=== PATIENT | female | born 1965 | race Caucasian/White ===

== ENCOUNTER 2020-10-28 04:20 | Outpatient (CLI) | payer MEDICARE, MEDICAID, SELFPAY ==
[2020-10-28 19:32] LABS: SARS-CoV-2 RNA PCR Negative
== END 2020-10-28 04:21 | disposition home or self-care (01) ==
LOC: ANHCOVIDDT 04:24
PROVIDERS: PCP Family Medicine; Visit Provider Internal Medicine Gastroenterology
DX: Z01.812 Encounter for preprocedural laboratory examination (principal); Z20.822 Contact with and (suspected) exposure to COVID-19
CPT/HCPCS: C9803; U0003

== ENCOUNTER 2020-11-01 01:24 | Day surgery (SDC) | payer MEDICARE, MEDICAID, SELFPAY ==
[2020-10-24 15:06] VITALS: BMI 41.0
[2020-11-01 09:20] VITALS: BP 143/111; PULSE 81; RESP 18; TEMP 36.3; O2SAT 100
[2020-11-01] MEDS: LACTATED RINGERS 1,000 ML 150 ML IV CONT (09:47)
--- NOTE | 2020-11-01 09:54 | WPDANESEPPF ---
Anes - Initial Pre Proc Eval Procedure: Operation Date: 11/01/20 10:30 Proposed Procedures p Screening Colonoscopy - Yimi Rai MD Date/Time: 11/01/20 09:54 Surgeon: Yimi Rai MD Pre Op Diagnosis: Neoplasm Screening Patient Data Age: 55 Gender: F Height: 5 ft 3 in Weight: 105 kg Last Vital Signs Temp 97.3 F L 11/01/20 09:20 Pulse 81 11/01/20 09:20 Resp 18 11/01/20 09:20 BP 143/111 H 11/01/20 09:20 Pulse Ox 100 11/01/20 09:20 Allergies Allergy/AdvReac Type Severity Reaction Status Date / Time No Known Allergies Allergy Verified 10/24/20 15:07 Home Medications Medication Instructions Recorded Confirmed Type omalizumab 150 mg/mL subcutaneous 150 mg SUBCUT .[id number] ml 08/23/20 10/24/20 History syringe valsartan 160 1 tablet PO DAILY #90 tablet 08/23/20 10/24/20 Rx mg-hydrochlorothiazide 25 mg tablet ipratropium 0.5 mg-albuterol 3 mg 3 ml INHALATION QID PRN #180 ml 08/30/20 10/24/20 Rx (2.5 mg base)/3 mL nebulization soln Suprep Bowel Prep Kit 17.5 354 ml PO .COMPLEX #354 ml NS 09/04/20 Rx gram-3.13 gram-1.6 gram oral solution Adult Probiotic 1 cap PO DAILY 10/24/20 10/24/20 History budesonide-formoterol 2 puff INHALATION BID 10/24/20 10/24/20 History levalbuterol tartrate [Xopenex HFA] 2 puff INHALATION Q6H 10/24/20 10/24/20 History multivitamin with minerals 1 tablet PO DAILY 10/24/20 10/24/20 History [Hair,Skin and Nails] multivitamin with minerals [ICaps] 1 tablet PO DAILY 10/24/20 10/24/20 History Patient hx anesthesia problems: none Family hx anesthesia problems: none PMFSH Past Medical History Medical History Allergic rhinitis, unspecified Asthma Essential (primary) hypertension Surgical History Surgical History H/O: hysterectomy (~2004) Hx of eye surgery (~2015) Family History Family History Sibling Asthma Social History Social History Smoking status: Never smoker Alcohol intake: never Substance use: never Substance use type: does not use Living arrangements: with family Spiritual care concerns: No Anes - Eval Final PreProcedure Day of Procedure 11/01/20 09:54 Patient weight: morbidly obese Heart: regular rate and rhythm Lungs: clear to auscultation Airway: Mallampati scale class III Neurological: alert and oriented Last oral intake: >/= 8 hours ASA classification: III Emergent: no Anesthetic plan: proceed Anesthesia type and monitoring: general GIVS and standard monitoring Informed Consent: The patient's anesthetic plan and its attendant risks and benefits were discussed with the patient/family/POA. Questions were solicited and answers provided to the satisfaction of the patient/family/POA.
--- NOTE | 2020-11-01 10:34 | PM.HPGS ---
History of Present Illness History of Present Illness Consent: Risks, benefits, and alternatives have been discussed and questions answered. Patient agrees to proceed with procedure. Chief complaint: Neoplasm Screening Narrative: Brandy Avila is a 55 year old female here for first screening colonoscopy Review of Systems Constitutional: Constitutional: Denies headache(s) and Denies weakness Eyes: Eyes: Denies blurry vision ENT: Reports Normal hearing present, Denies headache(s) and Denies neck pain Cardiovascular: Cardiovascular: Denies chest pain and Denies dyspnea Respiratory: Respiratory: Denies dyspnea Gastrointestinal: Gastrointestinal: Reports no additional gastrointestinal complaints Genitourinary: Genitourinary: Denies dysuria Musculoskeletal: Musculoskeletal: Denies neck pain Integumentary/Breasts: Skin/Breast: Denies dry skin Neurologic: Reports Normal hearing present, Denies headache(s) and Denies weakness Psychiatric: Psychiatric: Denies anxiety Endocrine: Endocrine: Denies change in body appearance Hematologic/Lymphatic: Hematologic/Lymphatic: Denies easy bleeding Allergic/Immunologic: Allergic/Immunologic: Denies urticaria PMFSH Past Medical History Medical History Allergic rhinitis, unspecified Asthma Essential (primary) hypertension Surgical History Surgical History H/O: hysterectomy (~2004) Hx of eye surgery (~2015) Family History Family History Sibling Asthma Social History Social History Smoking status: Never smoker Alcohol intake: never Substance use: never Substance use type: does not use Living arrangements: with family Spiritual care concerns: No Meds Home Medications and Allergies Home Medications Medication Instructions Recorded Confirmed Type omalizumab 150 mg/mL subcutaneous 150 mg SUBCUT .[id number] ml 08/23/20 10/24/20 History syringe valsartan 160 1 tablet PO DAILY #90 tablet 08/23/20 10/24/20 Rx mg-hydrochlorothiazide 25 mg tablet ipratropium 0.5 mg-albuterol 3 mg 3 ml INHALATION QID PRN #180 ml 08/30/20 10/24/20 Rx (2.5 mg base)/3 mL nebulization soln Suprep Bowel Prep Kit 17.5 354 ml PO .COMPLEX #354 ml NS 09/04/20 Rx gram-3.13 gram-1.6 gram oral solution Adult Probiotic 1 cap PO DAILY 10/24/20 10/24/20 History budesonide-formoterol 2 puff INHALATION BID 10/24/20 10/24/20 History levalbuterol tartrate [Xopenex HFA] 2 puff INHALATION Q6H 10/24/20 10/24/20 History multivitamin with minerals 1 tablet PO DAILY 10/24/20 10/24/20 History [Hair,Skin and Nails] multivitamin with minerals [ICaps] 1 tablet PO DAILY 10/24/20 10/24/20 History Allergies Allergy/AdvReac Type Severity Reaction Status Date / Time No Known Allergies Allergy Verified 10/24/20 15:07 Vital Signs Vital Signs - 24 hr 11/01/20 09:20 Temperature 97.3 F L Pulse Rate 81 Respiratory Rate 18 Blood Pressure 143/111 H Pulse Oximetry 100 Exam Const: General: comfortable and no acute distress HENMT: General nose exam: Normal nares present Eyes: General: appearance normal, both eyes and all related structures Neck: Neck: no JVD Resp: Auscultation: clear to auscultation bilaterally Cardio: Rate: regular rate Rhythm: regular rhythm GI: Inspection: non-distended GI Palp: Yes Soft to palpation Skin: General skin exam: normal color Neuro: General: gait normal Speech: normal speech Extrem: General: normal to inspection Psych: Mental Status: mental status grossly normal Assessment and Plan Assessment and plan (1) Colon cancer screening: Code(s): Z12.11 - Encounter for screening for malignant neoplasm of colon Status: Acute Assessment and Plan: will proceed with colonoscopy
[2020-11-01 10:56] VITALS: BP 171/98; PULSE 79; RESP 24; O2SAT 99
[2020-11-01 11:06] VITALS: BP 128/92; PULSE 74; RESP 21; O2SAT 99
[2020-11-01 11:16] VITALS: BP 169/99; PULSE 76; RESP 18; O2SAT 99
== END 2020-11-01 11:38 | disposition home or self-care (01) ==
PROVIDERS: PCP Family Medicine; Visit Provider Internal Medicine Gastroenterology
PROC: 0DJD8ZZ Inspection of Lower Intestinal Tract, Via Natural or Artificial Opening Endoscopic (ICD-10-PCS; CPT 45378; principal; 2020-11-01 10:30)
DX: Z12.11 Encounter for screening for malignant neoplasm of colon (principal); K57.30 Diverticulosis of large intestine without perforation or abscess without bleeding; K64.8 Other hemorrhoids; I10 Essential (primary) hypertension; J45.909 Unspecified asthma, uncomplicated; E66.01 Morbid (severe) obesity due to excess calories; Z68.41 Body mass index [BMI] 40.0-44.9, adult
CPT/HCPCS: G0121; C9803; J2001; J2704; J7120; U0003

== ENCOUNTER 2021-05-09 13:16 | Outpatient (CLI) | payer MEDICARE, MEDICAID, SELFPAY ==
--- NOTE | ~2021-05-09 | MM_ITS ---
EXAMINATION: MM screening chelsea BI w marcus HISTORY: Screening TECHNIQUE: Craniocaudal and mediolateral oblique 3-D tomosynthesis images were obtained and synthetic 2-D images were generated. CAD analysis was submitted and interpreted. COMPARISON: Comparison to multiple prior studies sequentially, with oldest reviewed study dated 12/29. BREAST PARENCHYMAL COMPOSITION: There are scattered areas of fibroglandular density. FINDINGS: There is no evidence of suspicious mass, calcification, or architectural distortion to sugg est malignancy in either breast. There has been no suspicious interval change. IMPRESSION: 1. No mammographic evidence of malignancy. 2. Recommend routine screening mammography in one year. BI-RADS Category 1: Negative Reviewed, dictated and finalized at location A.
== END 2021-05-09 13:17 | disposition home or self-care (01) ==
LOC: ANHIMG 13:19
PROVIDERS: PCP Family Medicine; Visit Provider Family Medicine
DX: Z12.31 Encounter for screening mammogram for malignant neoplasm of breast (principal)
CPT/HCPCS: 77063; 77067

== ENCOUNTER 2021-06-10 19:33 | Emergency (ER) | payer MEDICARE, MEDICAID, SELFPAY ==
[2021-06-10] VITALS (8 sets, daily range): BP systolic 119–147; BP diastolic 51–94; PULSE 73–92; RESP 15–23; TEMP 36.2; O2SAT 98–100
--- NOTE | ~2021-06-10 | XR_ITS ---
EXAMINATION: XR chest 1V portable DATE: 06/10/2021 20:46 INDICATION: Dizziness. TECHNIQUE: A single frontal view of the chest was obtained. COMPARISON: Chest 2 views 11/14/2009 FINDINGS: Calcified pulmonary nodules and calcified hilar lymph nodes are consistent with old granulo matous disease. No pleural effusion or pneumothorax. The heart size is normal. There is a large hiata l hernia. IMPRESSION: 1. Large hiatal hernia. Reviewed, dictated and finalized at location A. IMPRESSION: 1. Large hiatal hernia.
--- NOTE | 2021-06-10 19:52 | ECG_ITS ---
Measurements Intervals [place] Rate: 83 P: 52 RI: 145 QRS: 39 QRSD: 97 T: 6 QT: 390 QTc: 458 Interpretive Statements SINUS RHYTHM POOR R WAVE PROGRESSION, ANTERIOR LEADS BORDERLINE ST-T WAVE ABNORMALITY- INFERIOR LEADS BASELINE ARTIFACT- I, II, III, AVR, AVL, AVF, V1-V6 BORDERLINE ECG Electronically Signed On 06-10-2021 20:14:21 CDT by iPneda Nguyen D.O.
--- NOTE | 2021-06-10 19:58 | ED.DIZZY ---
HPI - Dizziness General Chief Complaint: Syncope Stated Complaint: dizziness x 2 days Time Seen by Provider: 06/10/21 19:58 History of Present Illness HPI Narrative: 55 yo female w/ h/o htn, asthma presents to the ED c/o dizziness. For the past 2-3 days she has had intermittent dizzy spells. Despite extensive questioning she is not able to provide very much information about these. She think that she may have lost consciousness once. History limited by extremely poor historian Related Data Home Medications Medication Instructions Recorded Confirmed Adult Probiotic 1 cap PO DAILY 10/24/20 03/07/21 budesonide-formoterol 2 puff INHALATION BID 10/24/20 03/07/21 multivitamin with minerals 1 tablet PO DAILY 10/24/20 03/07/21 [Hair,Skin and Nails] multivitamin with minerals [ICaps] 1 tablet PO DAILY 10/24/20 03/07/21 Allergies Allergy/AdvReac Type Severity Reaction Status Date / Time No Known Allergies Allergy Verified 06/10/21 19:45 Review of Systems Review of Systems: All systems reviewed & are unremarkable except as noted in HPI and below Constitutional: Constitutional: Reports fatigue and Denies fever(s) Eyes: Eyes: Reports no additional eye complaints ENT: Denies sore throat Cardiovascular: Cardiovascular: Denies chest pain Respiratory: Respiratory: Reports dyspnea Gastrointestinal: Gastrointestinal: Denies nausea Genitourinary: Genitourinary: Reports no additional female genitourinary complaints Neurologic: Reports dizziness, Reports syncope and Denies headache(s) [facility] Past Medical History Medical History Allergic rhinitis, unspecified Asthma Colon cancer screening Essential (primary) hypertension Surgical History Surgical History H/O: hysterectomy (~2004) Hx of eye surgery (~2015) Family History Family History Sibling Asthma Social History Social History Smoking status: Never smoker Alcohol intake: never Substance use: never Substance use type: does not use Gender identity (if verbalized by the patient): Female Spiritual care concerns: No Exam Const: General: no acute distress and alert Nutritional Appearance: obese Orientation/consciousness: patient oriented x3 HENMT: Head: normal to inspection Ears: Abnormal EAC present cerumen impaction Eyes: Conjunctivae: conjunctivae normal Pupils: Equal, round and reactive pupils present EOM: EOMs intact bilaterally Neck: Neck: normal visual inspection and no lymphadenopathy Resp: Effort & Inspection: normal respiratory effort and tachypneic Auscultation: clear to auscultation bilaterally and wheezes scattered wheezes Cardio: Jugular venous distension: no JVD Rate: regular rate Rhythm: regular rhythm GI: Inspection: non-distended GI Palp: Yes Soft to palpation and No Tenderness to palpation present (GI) Skin: General skin exam: normal color Neuro: General: patient oriented x3, moves all extremities and CN's II-XI intact bilaterally Speech: normal speech Extrem: General: normal to inspection and no edema Psych: Appearance: well kempt Affect: Anxious affect present Course Vital Signs Vital signs: Vital Signs Temperature 36.2 C L 06/10/21 19:45 Pulse Rate 81 06/10/21 19:45 Respiratory Rate 17 06/10/21 19:45 Blood Pressure 147/85 H 06/10/21 19:45 Pulse Oximetry 100 06/10/21 19:45 Temperature 36.2 C L 06/10/21 19:45 Pulse Rate 80 06/10/21 22:55 Respiratory Rate 22 H 06/10/21 22:55 Blood Pressure 128/51 L 06/10/21 22:55 Pulse Oximetry 98 06/10/21 22:55 MDM - Dizziness Differential Diagnosis Differential diagnosis: Likely benign paroxysmal positional vertigo, orthostatic hypotension and other (dehydration) Lab Data Attestation: I reviewed the patie
[2021-06-10] MEDS: MECLIZINE HCL 25 MG TABLET PO (20:45)
[2021-06-10] MEDS: SODIUM CHLORIDE 0.9% IV 1,000 ML 999 ML IV CONT (20:45)
[2021-06-10 20:51] LABS: Basophils Absolute Auto 0.1 K/mm3 (0.0-0.1); Eosinophils Absolute Auto 0.5 K/mm3 (0-0.3); Eosinophils Percent Auto 6.2 % (0-4.4); Hematocrit 38.4 % (37.0-47.0); Hemoglobin 12.6 g/dL (12.0-15.0); Immature Granulocyte Absolute 0.03 K/mm3 (0.00-0.031); Immature Granulocyte Percent A 0.4 % (0-0.5); Lymphocytes Absolute Auto 1.82 K/mm3 (0.9-3.2); Lymphocytes Percent Auto 25.2 % (18.3-44.2); Mean Corpuscular HGB Conc 32.8 g/dl (32-36); Mean Corpuscular Hemoglobin 30.8 pg (26-34); Mean Corpuscular Volume 93.9 fl (80-100); Mean Platelet Volume 11.6 fl (7.4-10.4); Monocytes Absolute Auto 0.8 K/mm3 (0.1-0.6); Monocytes Percent Auto 10.7 % (2.6-8.5); Neutrophils Absolute Auto 4.1 K/mm3 (1.3-6.7); Neutrophils Percent Auto 56.5 % (45.5-73.1); Platelet Count Result 223 k/mm3 (150-375); Red Blood Count 4.09 M/mm3 (4.2-5.4); Red Cell Distribution Width 12.8 % (11.5-14.5); White Blood Count 7.2 K/mm3 (4.5-10.0)
[2021-06-10 21:09] LABS: Anion Gap 8 mmol/L (8-16); Blood Urea Nitrogen 26 mg/dL (7-17); Carbon Dioxide 30 mmol/L (22-30); Chloride 102 mmol/L (98-107); Estimated CRCL calculation 111 ml/min; Estimated Glomerular Filt Rate > 60; Glucose 86 mg/dL (65-110); Potassium 4.2 mmol/L (3.4-5.0); Sodium 140 mmol/L (137-145)
[2021-06-10] MEDS: ALBUTEROL SULFATE NEB 2.5 MG/0.5 ML INH 5 MG INHALATION (21:46)
[2021-06-10] MEDS: IPRATROPIUM BR 0.02% INH SOLN 0.5 MG/2.5 ML VIAL INHALATION (21:46)
== END 2021-06-10 23:44 | disposition home or self-care (01) ==
PROVIDERS: Emergency Medicine; Emergency Provider Emergency Medicine; PCP Family Medicine
DX: R42 Dizziness and giddiness (principal); H61.21 Impacted cerumen, right ear; I10 Essential (primary) hypertension; J45.909 Unspecified asthma, uncomplicated
CPT/HCPCS: 36415; 71045; 80048; 85025; 93005; 94640; 96360; 99284; A9270; J7030

== ENCOUNTER 2022-03-14 14:59 | Outpatient (CLI) | payer MEDICARE, MEDICAID, SELFPAY ==
[2022-03-19 02:41] LABS: Immunoglobulin E 1069 kU/L (<=114)
== END 2022-03-14 15:00 | disposition home or self-care (01) ==
PROVIDERS: PCP Family Medicine; Visit Provider Nurse Practitioner Family
DX: D82.4 Hyperimmunoglobulin E [IgE] syndrome (principal)
CPT/HCPCS: 36415; 82785

== ENCOUNTER 2022-11-05 11:23 | Emergency (ER) | payer MEDICARE, MEDICAID, SELFPAY ==
[2022-11-05 11:23] VITALS: BP 144/84; PULSE 88; RESP 16; TEMP 36.6; O2SAT 98
--- NOTE | 2022-11-05 11:33 | ED.WOUNDLAC ---
HPI - Wound/Laceration General Chief Complaint: Wound/Laceration Stated Complaint: hand laceration Time Seen by Provider: 11/05/22 11:33 Source: patient and RN notes reviewed Mode of arrival: ambulatory Limitations: no limitations History of Present Illness HPI narrative: Patient states she that she was reaching inside of a box to get rid of some broken glass or dishes. She reached in and ended up slicing her left thumb. She sliced off some of the skin and there is no bili Diederich to pull the skin close enough together for repair. She is actively bleeding. She is holding pressure with a bandage. Onset (ago): minute(s) (20) Extremity Location: Left: hand (thumb) Place: home Patient tetanus UTD: No Context: accidental Associated symptoms: pain Treatments prior to arrival: bandage Related Data Home Medications Medication Instructions Recorded Confirmed Adult Probiotic 1 cap PO DAILY 10/24/20 11/05/22 multivitamin with minerals 1 tablet PO DAILY 10/24/20 11/05/22 (Hair,Skin and Nails tablet) Allergies Allergy/AdvReac Type Severity Reaction Status Date / Time No Known Allergies Allergy Verified 11/05/22 11:31 Review of Systems Review of Systems: All systems reviewed & are unremarkable except as noted in HPI and below PMFSH Past Medical History Medical History (Updated 11/05/22 @ 11:47 by Ben Fisher MD) Allergic rhinitis, unspecified Asthma Body mass index [BMI] 45.0-49.9, adult (01/07/19) Chronic obstructive pulmonary disease with (acute) exacerbation Essential (primary) hypertension History of intellectual disability Neuropathy of left foot Surgical History Surgical History H/O: hysterectomy (~2004) Hx of eye surgery (~2015) Right Family History Family History Sibling Asthma Social History Social History Smoking status: Never smoker Second hand tobacco smoke exposure: No Alcohol intake: never Substance use: never Substance use type: does not use Gender identity (if verbalized by the patient): Female Spiritual care concerns: No Exam Const: General: healthy appearing, no acute distress and alert Nutritional Appearance: well nourished and obese morbidly obese Orientation/consciousness: patient oriented x3 Limitations: no limitations HENMT: Head: normal to inspection Ears: external ears normal Face/Nose/Sinus: Normal external nose present Face and sinus: normal facial exam Mouth: Yes Normal oral and palatal mucosa present Eyes: Conjunctivae: conjunctivae normal Pupils: Equal, round and reactive pupils present EOM: EOMs intact bilaterally Neck: Neck: normal visual inspection Resp: Effort & Inspection: normal respiratory effort Auscultation: clear to auscultation bilaterally Cardio: Rate: regular rate Rhythm: regular rhythm GI: GI Palp: Yes Soft to palpation and No Tenderness to palpation present (GI) Auscultation: normal bowel sounds Back/Spine/Pelvis: Cervical Spine: cervical ROM normal Thoracic/Lumbar Spine: thoraco-lumbar ROM normal Skin: General skin exam: normal color Rashes: no rashes Wounds: wounds noted avulsion left lateral thumb size (4 cm X 2 cm elipse), bed beefy red, drainage bloody, margins poorly approximated and open Neuro: General: patient oriented x3, moves all extremities, no focal motor deficits and CN's II-XI intact bilaterally Speech: normal speech Gait exam (Neuro): Normal gait present Extrem: General: normal to inspection and no clubbing, cyanosis or edema Psych: Mental Status: mental status grossly normal Affect: normal affect Attitude: cooperative Course Course Emergency Course: There is no skin to sew back together as it is completely been sliced away. The wound is open bleeding. A tourniquet is used to stop the bleeding and then Surgicel is placed along with
[2022-11-05] MEDS: TETANUS,DIPHTHERIA,AC PERTUSSIS ADULT 0.5 ML (ADACEL) IM (11:39)
--- NOTE | 2022-11-05 12:20 | PC.NURSE ---
BLEEDING CONTROLLED POST SURGICEL AND DRESSING APPLICATION.
== END 2022-11-05 12:05 | disposition home or self-care (01) ==
PROVIDERS: Emergency Provider Emergency Medicine; PCP Family Medicine
DX: S61.412A Laceration without foreign body of left hand, initial encounter (principal); I10 Essential (primary) hypertension; J44.9 Chronic obstructive pulmonary disease, unspecified; Z23 Encounter for immunization; W25.XXXA Contact with sharp glass, initial encounter
CPT/HCPCS: 90471; 90715; 99282

== ENCOUNTER 2023-03-26 18:00 | Emergency (ER) | payer MEDICARE, MEDICAID, SELFPAY ==
--- NOTE | ~2023-03-26 | XR_ITS ---
EXAMINATION: XR chest 2V DATE: 03/26/2023 18:44 INDICATION: Cough and congestion TECHNIQUE: Frontal and lateral views of the chest are obtained COMPARISON: 06/10/2021 FINDINGS: The lungs are free of acute opacities. No pleural effusion or pneumothorax. The heart size is normal. There is a moderate-sized hiatal hernia. There is moderate thoracic spondylosis. IMPRESSION: 1. No acute cardiopulmonary abnormality. Reviewed, dictated and finalized at location F.
[2023-03-26 18:00] VITALS: BP 147/93; PULSE 79; RESP 22; TEMP 36.9; O2SAT 97
--- NOTE | 2023-03-26 18:18 | ED.GENADULT ---
HPI - General Adult General Chief complaint: Shortness of Breath/Dyspnea Stated complaint: cough and congestion Time Seen by Provider: 03/26/23 18:18 History of Present Illness HPI narrative: The patient is a 57-year-old woman with history of asthma, on inhalers but not on nebulizer treatments or oxygen. Hypertension. Never smoked. Mild electrical disability. Allergic rhinitis. Hyper IgE syndrome. Prior hysterectomy. For the last 3 days, the patient has had upper respiratory tract infection symptoms with increasing shortness of breath and wheezing. She has had a cough, nasal congestion, but no rhinorrhea. No fevers or chills or diaphoresis. No chest pain. No abdominal pain. No nausea or vomiting. No urinary symptoms. No sick contacts. She has used her inhalers without relief of her shortness of breath and wheezing. Related Data Allergies Allergy/AdvReac Type Severity Reaction Status Date / Time No Known Allergies Allergy Verified 03/26/23 18:29 Review of Systems Review of Systems: All systems reviewed & are unremarkable except as noted in HPI and below Constitutional: Constitutional: Denies chills, Denies excessive sweating, Denies fatigue, Denies fever(s), Denies headache(s) and Denies weakness Eyes: Eyes: Denies change in vision and Denies photophobia ENT: Denies dysphagia, Denies dizziness, Denies headache(s), Denies lip swelling, Reports nasal congestion, Denies sore throat and Denies tongue swelling Cardiovascular: Cardiovascular: Denies chest pain, Denies syncope, Denies rapid heart rate and Denies dyspnea Respiratory: Respiratory: Reports chest congestion, Reports cough, Reports dyspnea and Reports wheezing Gastrointestinal: Gastrointestinal: Denies abdominal pain, Denies constipation, Denies dysphagia, Denies diarrhea, Denies nausea and Denies vomiting Genitourinary: Genitourinary: Denies hematuria, Denies urinary frequency, Denies dysuria and Denies urinary urgency Musculoskeletal: Musculoskeletal: Denies back pain, Denies myalgias, Denies arthralgias, Denies joint swelling and Denies numbness Integumentary/Breasts: Skin/Breast: Denies pruritus, Denies erythema and Denies rash Neurologic: Denies confusion, Denies dizziness, Denies syncope, Denies headache(s), Denies focal weakness, Denies numbness and Denies weakness Psychiatric: Psychiatric: Denies anxiety and Denies confusion Endocrine: Endocrine: Denies excessive sweating and Denies fatigue Hematologic/Lymphatic: Hematologic/Lymphatic: Denies easy bleeding and Denies easy bruising Allergic/Immunologic: Allergic/Immunologic: Denies lip swelling, Denies tongue swelling and Denies wheezing PMFSH Past Medical History Medical History Allergic rhinitis, unspecified Asthma Body mass index [BMI] 45.0-49.9, adult (01/07/19) Chronic obstructive pulmonary disease with (acute) exacerbation Essential (primary) hypertension History of intellectual disability Neuropathy of left foot Surgical History Surgical History H/O: hysterectomy (~2004) Hx of eye surgery (~2015) Right Family History Family History Sibling Asthma Social History Social History Social History: Caffeine-daily Smoking status: Never smoker Second hand tobacco smoke exposure: No Alcohol intake: never Substance use: never Substance use type: does not use Lack of Transportation: No Lack of Food: Never True Current Housing: I Have Housing Concerned About Future Housing: No Difficulty Paying Gas/Electric Bills: No Difficulty Paying for Meds: No Currently Unemployed: No Education: High School Diploma/GED Difficulty w/ Childcare or Family Care: No Living arrangements: with family Gender identity (if verbalized by the patient): Female Spiritual
--- NOTE | 2023-03-26 18:23 | ECG_ITS ---
Measurements Intervals [place] Rate: 74 P: 75 NH: 145 QRS: 47 QRSD: 100 T: 48 QT: 402 QTc: 447 Interpretive Statements SINUS RHYTHM WITH OCCASIONAL ATRIAL PREMATURE COMPLEXES POOR R-WAVE PROGRESSION ABNORMAL ECG COMPARED TO ECG 06/10/2021 20:03:46 APCS ARE NOW SEEN Electronically Signed On 03-27-2023 16:24:12 CDT by Checo Jones M.D.
[2023-03-26] MEDS: IPRATROPIUM 0.5 MG/ALBUTEROL SULFATE 2.5 MG AMPUL.NEB 3 ML INHALATION ×2 (18:44→20:31)
[2023-03-26 18:49] VITALS: BP 137/88; PULSE 85; RESP 22; O2SAT 99
[2023-03-26 19:39] LABS: Influenza A QL RT-PCR Negative (Negative); Influenza B QL RT-PCR Negative (Negative); SARS-CoV-2 RNA PCR Negative (Negative)
[2023-03-26 19:40] LABS: RSV RNA, RT-PCR Negative (Negative); Strep Group A RT-PCR NOT DETECTED (Negative)
[2023-03-26 19:45] LABS: Hematocrit 29.2 % (35.0-49.0); Hemoglobin 8.7 g/dL (12.0-15.0); Mean Corpuscular HGB Conc 29.8 g/dL (32.0-36.0); Mean Corpuscular Hemoglobin 25.2 pg (27.0-31.0); Mean Corpuscular Volume 84.6 fL (78.0-102.0); Mean Platelet Volume 10.8 fl (9.2-11.8); Platelet Count Result 272 K/mm3 (150-420); Red Blood Count 3.45 M/mm3 (4.20-5.40); Red Cell Distribution Width 14.8 % (11.6-14.4); White Blood Count 5.6 K/mm3 (4.8-10.8)
[2023-03-26 20:02] LABS: Alanine Aminotransferase 18 U/L (14-59); Albumin Level 3.6 g/dL (3.4-5.0); Alkaline Phosphatase 78 U/L (46-116); Anion Gap 12 mmol/L (8-16); Aspartate Amino Transferase 21 U/L (15-37); Bilirubin,Total 0.2 mg/dL (0.00-1.00); Blood Urea Nitrogen 21 mg/dL (7-18); CRP 5.7 mg/dL (0.0-0.9); Calcium 8.7 mg/dL (8.5-10.1); Carbon Dioxide 31 mmol/L (21-32); Chloride 99 mmol/L (98-108); Estimated CRCL calculation 102 ml/min; Estimated Glomerular Filt Rate > 60; Glucose 92 mg/dL (70-99); Osmolality Calculated 297 mOsm/kg (285-295); Potassium 2.9 mmol/L (3.5-5.1); Sodium 142 mmol/L (136-145); Total Protein 7.1 g/dL (6.4-8.2); Troponin I 8.8 ng/L (0.00-60.4)
[2023-03-26 20:05] LABS: Lactic Acid Reflex 0.4 mmol/L (0.4-2.0)
[2023-03-26 20:09] LABS: NT Pro B Type Natriuretic Pept 189 pg/mL (0-125)
[2023-03-26 20:16] LABS: Band Neutrophils Percent 0 % (0-6); Basophils Percent Manual 0 % (0-1); Eosinophils Absolute Manual 0.16 K/mm3 (0.02-0.5); Eosinophils Percent Manual 3 % (1-6); Lymphocytes Percent Manual 34 % (18-44); Monocytes Absolute Manual 0.89 K/mm3 (0.1-0.90); Monocytes Percent Manual 16 % (3-9); Neutrophils Absolute Manual 2.63 K/mm3 (1.7-7.2); Neutrophils Percent Manual 47 % (46-73); Total Cells Counted 100
[2023-03-26 20:17] LABS: Platelet Estimate Adequate (Adequate)
[2023-03-26] MEDS: POTASSIUM BICARBONATE 25 MEQ TABEF 75 MEQ PO (20:22)
[2023-03-26] MEDS: methylPREDNISolone SOD SUCC 125 MG VIAL IV PUSH (20:24)
[2023-03-26] MEDS: BENZONATATE 100 MG CAPSULE PO (20:30)
[2023-03-26] MEDS: guaiFENesin/DEXTROMETHORPHAN 5 ML UDC 10 ML PO (20:31)
[2023-03-26] MEDS: methylPREDNISolone SOD SUCC 125 MG VIAL IM (20:32)
[2023-03-26 20:36] LABS: Erythrocyte Sedimentation Rate 30 mm/hr (0-20)
[2023-03-26 21:03] VITALS: BP 102/59; PULSE 88; RESP 18; TEMP 36.9; O2SAT 100
== END 2023-03-26 21:05 | disposition home or self-care (01) ==
LOC: CHSED 20:39
PROVIDERS: Emergency Provider Emergency Medicine
DX: J45.901 Unspecified asthma with (acute) exacerbation (principal); I10 Essential (primary) hypertension; Z20.822 Contact with and (suspected) exposure to COVID-19
CPT/HCPCS: 36415; 71046; 80053; 83605; 83880; 84484; 85025; 85652; 86140; 87637; 87651; 93005; 96372; 96374; 99284; A9270; J2930

== ENCOUNTER 2023-06-04 14:42 | Outpatient (CLI) | payer MEDICARE, MEDICAID, SELFPAY ==
--- NOTE | ~2023-06-04 | MM_ITS ---
EXAMINATION: MM screening [place] BI w marcus HISTORY: Screening TECHNIQUE: Craniocaudal and mediolateral oblique 3-D tomosynthesis images were obtained and synthetic 2-D images were generated. CAD analysis was submitted and interpreted. COMPARISON: Comparison to multiple prior studies sequentially, with oldest reviewed study dated 10/2013. BREAST PARENCHYMAL COMPOSITION: The breasts are almost entirely fatty. FINDINGS: There is no evidence of suspicious mass, calcification, or architectural distortion to sugg est malignancy in either breast. There has been no suspicious interval change. IMPRESSION: 1. No mammographic evidence of malignancy. 2. Recommend routine screening mammography in one year. BI-RADS Category 1: Negative Reviewed, dictated and finalized at location A.
== END 2023-06-04 14:43 | disposition home or self-care (01) ==
LOC: ANHIMG 14:45
PROVIDERS: PCP Family Medicine; Visit Provider Family Medicine
DX: Z12.31 Encounter for screening mammogram for malignant neoplasm of breast (principal)
CPT/HCPCS: 77063; 77067

== ENCOUNTER 2023-06-18 15:29 | Outpatient (CLI) | payer MEDICARE, MEDICAID, SELFPAY ==
[2023-06-18 18:44] LABS: Basophils Absolute Auto 0.1 K/mm3 (0.0-0.1); Basophils Percent Auto 1.3 % (0.2-1.2); Eosinophils Absolute Auto 0.2 K/mm3 (0-0.3); Hematocrit 29.5 % (37.0-47.0); Hemoglobin 8.1 g/dL (12.0-15.0); Immature Granulocyte Absolute 0.02 K/mm3 (0.00-0.031); Immature Granulocyte Percent A 0.3 % (0-0.5); Lymphocytes Absolute Auto 1.59 K/mm3 (0.9-3.2); Lymphocytes Percent Auto 25.1 % (18.3-44.2); Mean Corpuscular HGB Conc 27.5 g/dl (32-36); Mean Corpuscular Volume 79.9 fl (80-100); Mean Platelet Volume 11.5 fl (7.4-10.4); Monocytes Absolute Auto 0.6 K/mm3 (0.1-0.6); Monocytes Percent Auto 8.7 % (2.6-8.5); Neutrophils Absolute Auto 3.9 K/mm3 (1.3-6.7); Neutrophils Percent Auto 61.6 % (45.5-73.1); Platelet Count Result 360 k/mm3 (150-375); Red Blood Count 3.69 M/mm3 (4.2-5.4); Red Cell Distribution Width 16.8 % (11.5-14.5); White Blood Count 6.3 K/mm3 (4.5-10.0)
[2023-06-18 19:21] LABS: Platelet Estimate Adequate (Adequate); Schistocytes None Seen (NORMAL)
[2023-06-18 19:22] LABS: Anisocytosis 2+ (NORMAL); Hypochromasia 1+ (NORMAL)
[2023-06-18 19:24] LABS: Alanine Aminotransferase 16 U/L (6-35); Albumin Level 4.6 g/dL (3.5-5.1); Alkaline Phosphatase 87 U/L (38-126); Anion Gap 11 mmol/L (8-16); Aspartate Amino Transferase 34 U/L (14-36); Bilirubin,Total 0.3 mg/dL (0.2-1.3); Blood Urea Nitrogen 25 mg/dL (7-17); Calcium 9.5 mg/dL (8.4-10.2); Carbon Dioxide 33 mmol/L (22-30); Chloride 96 mmol/L (98-107); Estimated Glomerular Filt Rate > 60; Glucose 91 mg/dL (65-110); Sodium 140 mmol/L (137-145)
== END 2023-06-18 15:30 | disposition home or self-care (01) ==
LOC: ANHGOSHLAB 15:32
PROVIDERS: PCP Family Medicine; Visit Provider Nurse Practitioner Family
DX: E87.6 Hypokalemia (principal); D64.9 Anemia, unspecified
CPT/HCPCS: 36415; 80053; 85025

== ENCOUNTER 2023-09-10 23:21 | Emergency (ER) | payer MEDICARE, MEDICAID, SELFPAY ==
--- NOTE | ~2023-09-10 | XR_ITS ---
EXAMINATION: XR chest 1V portable Exam Date/Time: 09/10/2023 23:25 [employer] TECH HISTORY: cough Comparison: 03/26/2023. RESULT: Lines, tubes, and devices: None. Lungs and pleura: Leftward rotation. Low volumes with crowding. Minimal streaky bibasilar scar/atele ctasis. Cardiomediastinal silhouette: Stable. Hiatal hernia. Other: No acute osseous or upper abdominal finding. IMPRESSION: No acute cardiopulmonary process. Reviewed, dictated and finalized at location K. [employer] TECH
--- NOTE | 2023-09-10 23:24 | ED.URI ---
HPI - URI/Sore Throat General Chief Complaint: Upper Respiratory Infection Stated Complaint: COUGH Time Seen by Provider: 09/10/23 23:23 Source: patient Mode of arrival: ambulatory Limitations: no limitations History of Present Illness HPI Narrative: 58-year-old female with a history of intellectual disability, hypertension, allergic rhinitis, asthma on omalizumab presents to the ER with a few days history of -- nonproductive cough -- wheezing. Patient has prescribed Symbicort and albuterol. The patient has not used her albuterol. The patient denied any fever. The patient denied any chest pain. MD elicited complaint: cough Pertinent past history: asthma Onset (ago): day(s) Consistency: constant Severity: moderate Able to tolerate fluids by mouth: Yes Exacerbating factors: nothing Relieving factors: nothing Associated symptoms: denies other symptoms and shortness of breath Treatments prior to arrival: none Related Data Home Medications Medication Instructions Recorded Confirmed albuterol sulfate 90 mcg/actuation 1 - 2 inh inhalation Q4-6H PRN 09/10/23 09/10/23 aerosol inhaler (ProAir HFA) shortness of breath or wheezing Allergies Allergy/AdvReac Type Severity Reaction Status Date / Time No Known Allergies Allergy Verified 09/10/23 23:41 Review of Systems Review of Systems: All systems reviewed & are unremarkable except as noted in HPI and below Constitutional: Constitutional: Reports as per HPI and Reports no additional constitutional complaints Eyes: Eyes: Reports as per HPI and Reports no additional eye complaints ENT: Reports system reviewed and no additional complaints, except as documented and Reports as per HPI Cardiovascular: Cardiovascular: Reports as per HPI and Reports no additional cardiovascular complaints Respiratory: Respiratory: Reports as per HPI, Reports no additional respiratory complaints, Reports cough and Reports wheezing Gastrointestinal: Gastrointestinal: Reports as per HPI and Reports no additional gastrointestinal complaints Genitourinary: Genitourinary: Reports no additional female genitourinary complaints and Reports as per HPI Musculoskeletal: Musculoskeletal: Reports no additional musculoskeletal complaints and Reports as per HPI Integumentary/Breasts: Skin/Breast: Reports system reviewed and no additional complaints, except as docu and Reports as per HPI Neurologic: Reports system reviewed and no additional complaints, except as documented and Reports as per HPI Psychiatric: Psychiatric: Reports no additional psychiatric complaints and Reports as per HPI Endocrine: Endocrine: Reports no additional endocrine complaints and Reports as per HPI Hematologic/Lymphatic: Hematologic/Lymphatic: Reports no additional hematologic/lymphatic complaints and Reports as per HPI Allergic/Immunologic: Allergic/Immunologic: Reports no additional allergic/immunologic complaints and Reports as per HPI [facility] Past Medical History Medical History Allergic rhinitis, unspecified Asthma Body mass index [BMI] 45.0-49.9, adult (01/07/19) Chronic obstructive pulmonary disease with (acute) exacerbation Essential (primary) hypertension History of intellectual disability Iron deficiency anemia Neuropathy of left foot Surgical History Surgical History H/O: hysterectomy (~2004) Hx of eye surgery (~2015) Right Family History Family History Sibling Asthma Social History Social History Social History: Caffeine-occasionally Smoking status: Never smoker Second hand tobacco smoke exposure: No Alcohol intake: never Substance use: never Substance use type: does not use Lack of Transportation: No Lack of Food: Never True Current Housing: I Have Housing Co
[2023-09-10 23:25] VITALS: BP 154/87; PULSE 95; RESP 20; TEMP 36.8; O2SAT 98
[2023-09-11] MEDS: methylPREDNISolone SOD SUCC 125 MG VIAL IM (00:05)
[2023-09-11 00:07] LABS: Influenza A QL RT-PCR Negative (Negative); Influenza B QL RT-PCR Negative (Negative); RSV RNA, RT-PCR Negative (Negative); SARS-CoV-2 RNA PCR Negative (Negative)
[2023-09-11] MEDS: IPRATROPIUM 0.5 MG/ALBUTEROL SULFATE 2.5 MG AMPUL.NEB 3 ML INHALATION ×2 (00:07→01:20)
[2023-09-11 00:09] VITALS: PULSE 86; RESP 18; O2SAT 99
[2023-09-11 00:22] VITALS: PULSE 88; RESP 18; O2SAT 96
[2023-09-11 01:24] VITALS: PULSE 85; RESP 16; O2SAT 99
[2023-09-11] MEDS: AZITHROMYCIN 250 MG TABLET 500 MG PO (01:29)
[2023-09-11] MEDS: ALBUTEROL SULFATE (*SP) INHALER 2 PUFF INHALATION (01:29)
[2023-09-11 01:36] VITALS: BP 154/75; PULSE 86; RESP 18; TEMP 36.8; O2SAT 99
== END 2023-09-11 01:46 | disposition home or self-care (01) ==
PROVIDERS: Emergency Provider Internal Medicine Critical Care Medicine; PCP Family Medicine
DX: J45.41 Moderate persistent asthma with (acute) exacerbation (principal); I10 Essential (primary) hypertension; J44.9 Chronic obstructive pulmonary disease, unspecified; Z20.822 Contact with and (suspected) exposure to COVID-19
CPT/HCPCS: 71045; 87637; 96372; 99284; A9270; J2930

== ENCOUNTER 2023-10-08 00:31 | Day surgery (SDC) | payer MEDICARE, MEDICAID, SELFPAY ==
[2023-09-29 14:57] VITALS: BMI 45.8
--- NOTE | 2023-10-06 09:26 | SUR.PREOP ---
Patient called regarding upcoming procedure. Message left on pt's voicemail regarding appointment times.
[2023-10-08 08:57] VITALS: BP 181/75; PULSE 100; RESP 20; TEMP 36.4; O2SAT 95
--- NOTE | 2023-10-08 09:24 | WPDANESEPPF ---
Anes - Initial Pre Proc Eval Procedure: Operation Date: 10/08/23 10:00 Proposed Procedures p Esophagogastroduodenoscopy & Colonoscopy - Yimi Rai MD Date/Time: 10/08/23 09:24 Surgeon: Yimi Rai MD Pre Op Diagnosis: Iron deficiency anemia Patient Data Age: 58 Gender: F Height: 1.52 m Weight: 111.5 kg Last Vital Signs Temp 36.4 C L 10/08/23 08:57 Pulse 100 10/08/23 08:57 Resp 20 10/08/23 08:57 BP 181/75 H 10/08/23 08:57 Pulse Ox 95 10/08/23 08:57 O2 Del Method Room Air 10/08/23 08:57 Allergies Allergy/AdvReac Type Severity Reaction Status Date / Time No Known Allergies Allergy Verified 10/08/23 08:56 Home Medications Medication Instructions Recorded Confirmed Type Symbicort 160 mcg-4.5 2 puff inhalation Q12H #10.2 grams 10/09/22 09/29/23 Rx mcg/actuation HFA aerosol inhaler (budesonide-formoterol) albuterol sulfate 2.5 mg/3 mL 2.5 mg (3 mL) inhalation Q4H PRN 03/26/23 09/29/23 Rx (0.083 %) solution for nebulization shortness of breath or wheezing #75 mL valsartan 160 1 tablet PO DAILY #90 tabs 06/18/23 09/29/23 Rx mg-hydrochlorothiazide 25 mg tablet omalizumab 150 mg/mL subcutaneous 375 mg (2.5 mL) subcut .q2 weeks 07/28/23 09/29/23 Rx syringe (Xolair) #5 mL albuterol sulfate 90 mcg/actuation 1 - 2 inh inhalation Q4-6H PRN 09/10/23 09/29/23 History aerosol inhaler (ProAir HFA) shortness of breath or wheezing Patient hx anesthesia problems: none Family hx anesthesia problems: none Results Review: All pre-operative results and documents have been reviewed as part of the pre-operative evaluation. [facility] Past Medical History Medical History Allergic rhinitis, unspecified Asthma Body mass index [BMI] 45.0-49.9, adult (01/07/19) Chronic obstructive pulmonary disease with (acute) exacerbation Essential (primary) hypertension History of intellectual disability Iron deficiency anemia Neuropathy of left foot Surgical History Surgical History H/O: hysterectomy (~2004) Hx of eye surgery (~2015) Right Family History Family History Sibling Asthma Social History Social History Social History: Caffeine-occasionally Smoking status: Never smoker Second hand tobacco smoke exposure: No Alcohol intake: never Substance use: never Substance use type: does not use Lack of Transportation: No Lack of Food: Never True Current Housing: I Have Housing Concerned About Future Housing: No Difficulty Paying Gas/Electric Bills: No Difficulty Paying for Meds: No Currently Unemployed: No Education: High School Diploma/GED Difficulty w/ Childcare or Family Care: No Living arrangements: with family Gender identity (if verbalized by the patient): Female Spiritual care concerns: No Anes - Eval Final PreProcedure Day of Procedure 10/08/23 09:24 Patient weight: morbidly obese Heart: regular rate and rhythm Lungs: clear to auscultation Airway: Mallampati scale class III Neurological: alert and oriented Last oral intake: >/= 8 hours ASA classification: III Emergent: no Anesthetic plan: proceed Anesthesia type and monitoring: general GIVS and standard monitoring Results Review: All pre-operative results and documents have been reviewed as part of the pre-operative evaluation. Informed Consent: The patient's anesthetic plan and its attendant risks and benefits were discussed with the patient/family/POA. Questions were solicited and answers provided to the satisfaction of the patient/family/POA.
[2023-10-08] MEDS: LACTATED RINGERS 1,000 ML 150 ML IV CONT (09:36)
--- NOTE | 2023-10-08 09:54 | PM.HPGS ---
History of Present Illness History of Present Illness Consent: Risks, benefits, and alternatives have been discussed and questions answered. Patient agrees to proceed with procedure. Chief complaint: Iron deficiency anemia Narrative: Brandy Avila is a 58 year old female here for egd and colonoscopy, here because KENNY, hgb 8-9, denies overt gib. She has asthma on xolair injections, denies blood thinners or nsaid's use. First screening colonoscopy 2020 with diverticulosis, no polyps Review of Systems Constitutional: Constitutional: Denies headache(s) and Denies weakness Eyes: Eyes: Denies blurry vision ENT: Reports Normal hearing present, Denies headache(s) and Denies neck pain Cardiovascular: Cardiovascular: Denies chest pain and Denies dyspnea Respiratory: Respiratory: Denies dyspnea Gastrointestinal: Gastrointestinal: Reports no additional gastrointestinal complaints Genitourinary: Genitourinary: Denies dysuria Musculoskeletal: Musculoskeletal: Denies neck pain Integumentary/Breasts: Skin/Breast: Denies dry skin Neurologic: Reports Normal hearing present, Denies headache(s) and Denies weakness Psychiatric: Psychiatric: Denies anxiety Endocrine: Endocrine: Denies change in body appearance Hematologic/Lymphatic: Hematologic/Lymphatic: Denies easy bleeding Allergic/Immunologic: Allergic/Immunologic: Denies urticaria PMFSH Past Medical History Medical History Allergic rhinitis, unspecified Asthma Body mass index [BMI] 45.0-49.9, adult (01/07/19) Chronic obstructive pulmonary disease with (acute) exacerbation Essential (primary) hypertension History of intellectual disability Iron deficiency anemia Neuropathy of left foot Surgical History Surgical History H/O: hysterectomy (~2004) Hx of eye surgery (~2015) Right Family History Family History Sibling Asthma Social History Social History Social History: Caffeine-occasionally Smoking status: Never smoker Second hand tobacco smoke exposure: No Alcohol intake: never Substance use: never Substance use type: does not use Lack of Transportation: No Lack of Food: Never True Current Housing: I Have Housing Concerned About Future Housing: No Difficulty Paying Gas/Electric Bills: No Difficulty Paying for Meds: No Currently Unemployed: No Education: High School Diploma/GED Difficulty w/ Childcare or Family Care: No Living arrangements: with family Gender identity (if verbalized by the patient): Female Spiritual care concerns: No Meds Home Medications and Allergies Home Medications Medication Instructions Recorded Confirmed Type Symbicort 160 mcg-4.5 2 puff inhalation Q12H #10.2 grams 10/09/22 09/29/23 Rx mcg/actuation HFA aerosol inhaler (budesonide-formoterol) albuterol sulfate 2.5 mg/3 mL 2.5 mg (3 mL) inhalation Q4H PRN 03/26/23 09/29/23 Rx (0.083 %) solution for nebulization shortness of breath or wheezing #75 mL valsartan 160 1 tablet PO DAILY #90 tabs 06/18/23 09/29/23 Rx mg-hydrochlorothiazide 25 mg tablet omalizumab 150 mg/mL subcutaneous 375 mg (2.5 mL) subcut .q2 weeks 07/28/23 09/29/23 Rx syringe (Xolair) #5 mL albuterol sulfate 90 mcg/actuation 1 - 2 inh inhalation Q4-6H PRN 09/10/23 09/29/23 History aerosol inhaler (ProAir HFA) shortness of breath or wheezing Allergies Allergy/AdvReac Type Severity Reaction Status Date / Time No Known Allergies Allergy Verified 10/08/23 08:56 Vital Signs Vital Signs - 24 hr 10/08/23 08:57 Temperature 97.5 F L Pulse Rate 100 Respiratory Rate 20 Blood Pressure 181/75 H Pulse Oximetry 95 Oxygen Delivery Room Air Exam Const: General: comfortable and no acute distress HENMT: Face/Nose/S
--- NOTE | 2023-10-08 10:24 | SUR.OPER ---
EGD: Start 100, End 1013 Colonoscopy: Start 1016, End 1028
[2023-10-08 10:33] VITALS: BP 110/60; PULSE 110; RESP 20; O2SAT 100
[2023-10-08 10:43] VITALS: BP 146/77; PULSE 114; RESP 28; O2SAT 95
[2023-10-08 10:53] VITALS: BP 163/89; PULSE 115; RESP 32; O2SAT 94
--- NOTE | 2023-10-08 11:33 | SUR.PHASEII ---
1053-Pt waiting on ride. Discharged at 1125.
== END 2023-10-08 11:25 | disposition home or self-care (01) ==
PROVIDERS: PCP Family Medicine; Visit Provider Internal Medicine Gastroenterology
PROC: 0DJ08ZZ Inspection of Upper Intestinal Tract, Via Natural or Artificial Opening Endoscopic (ICD-10-PCS; CPT 43235; principal; 2023-10-08 10:00)
DX: D64.9 Anemia, unspecified (principal); K64.8 Other hemorrhoids; K64.4 Residual hemorrhoidal skin tags; K44.9 Diaphragmatic hernia without obstruction or gangrene; K29.50 Unspecified chronic gastritis without bleeding; K31.89 Other diseases of stomach and duodenum; D82.4 Hyperimmunoglobulin E [IgE] syndrome; J44.9 Chronic obstructive pulmonary disease, unspecified; I10 Essential (primary) hypertension; Z79.51 Long term (current) use of inhaled steroids; E66.01 Morbid (severe) obesity due to excess calories; Z68.42 Body mass index [BMI] 45.0-49.9, adult
CPT/HCPCS: 45378; 43239; 88305; J2704; J3010; J7120

== ENCOUNTER 2024-01-26 13:26 | Outpatient (CLI) | payer MEDICARE, MEDICAID, SELFPAY ==
[2024-01-26 20:02] LABS: Basophils Absolute Auto 0.1 K/mm3 (0.0-0.1); Basophils Percent Auto 1.7 % (0.2-1.2); Eosinophils Absolute Auto 0.2 K/mm3 (0-0.3); Eosinophils Percent Auto 3.2 % (0-4.4); Hematocrit 23.6 % (37.0-47.0); Immature Granulocyte Absolute 0.02 K/mm3 (0.00-0.031); Immature Granulocyte Percent A 0.3 % (0-0.5); Immature Platelet Fraction Pct 9.5 % (0.9-11.2); Lymphocytes Absolute Auto 1.51 K/mm3 (0.9-3.2); Lymphocytes Percent Auto 25.5 % (18.3-44.2); Mean Corpuscular HGB Conc 24.2 g/dl (32-36); Mean Corpuscular Hemoglobin 16.5 pg (26-34); Mean Corpuscular Volume 68.4 fl (80-100); Mean Platelet Volume 10.5 fl (7.4-10.4); Monocytes Absolute Auto 0.6 K/mm3 (0.1-0.6); Monocytes Percent Auto 10.5 % (2.6-8.5); Neutrophils Absolute Auto 3.5 K/mm3 (1.3-6.7); Neutrophils Percent Auto 58.8 % (45.5-73.1); Platelet Count Result 469 k/mm3 (150-375); Red Blood Count 3.45 M/mm3 (4.2-5.4); Red Cell Distribution Width 23.8 % (11.5-14.5); White Blood Count 5.9 K/mm3 (4.5-10.0)
[2024-01-26 20:28] LABS: Hemoglobin 5.7 g/dL (12.0-15.0)
[2024-01-26 20:31] LABS: Platelet Estimate Increased (Adequate)
[2024-01-26 20:32] LABS: Anisocytosis 3+; Hypochromasia 2+; Schistocytes None Seen
[2024-01-26 21:49] LABS: Alanine Aminotransferase 14 U/L (6-35); Albumin Level 4.4 g/dL (3.5-5.1); Alkaline Phosphatase 81 U/L (38-126); Anion Gap 7 mmol/L (4-12); Aspartate Amino Transferase 65 U/L (14-36); Bilirubin,Total 0.5 mg/dL (0.2-1.3); Blood Urea Nitrogen 27 mg/dL (7-17); Calcium 9.4 mg/dL (8.4-10.2); Carbon Dioxide 33 mmol/L (22-30); Chloride 97 mmol/L (98-107); Cholesterol 167 mg/dL (0-200); Estimated Glomerular Filt Rate > 60; Glucose 72 mg/dL (65-110); HDL Direct 69 mg/dL; Potassium 4.5 mmol/L (3.4-5.0); Sodium 137 mmol/L (137-145); Triglycerides 63 mg/dL (<150)
[2024-01-26 22:01] LABS: LDL Cholesterol Direct 73 mg/dL
[2024-01-29 14:20] LABS: Vitamin D 1,25 (OH)2 Total 29 pg/mL (18-72); Vitamin D2 1,25 (OH)2 <8 pg/mL; Vitamin D3 1,25 (OH)2 29 pg/mL
== END 2024-01-26 13:27 | disposition home or self-care (01) ==
LOC: ANHGOSHLAB 13:29
PROVIDERS: Nurse Practitioner Family; PCP Family Medicine; Visit Provider Podiatrist Foot & Ankle Surgery
DX: B35.1 Tinea unguium (principal); E55.9 Vitamin D deficiency, unspecified; I10 Essential (primary) hypertension
CPT/HCPCS: 36415; 80053; 80061; 82652; 85025; 85055

== ENCOUNTER 2024-01-27 09:21 | Observation (INO) | payer MEDICARE, MEDICAID, SELFPAY ==
[2024-01-27] VITALS (23 sets, daily range): BP systolic 117–179; BP diastolic 48–98; PULSE 77–106; RESP 15–20; TEMP 36.4–37; O2SAT 97–100; BMI 42.1
--- NOTE | 2024-01-27 | ECHO_ITS ---
Patient Info Name: Brandy Avila Age: 58 years : 1965 Gender: Female Ht: 64 in Wt: 230 lbs BSA: 2.22 m2 HR: 80 bpm BP: 152 / 77 mmHg Heart Rhythm: Sinus Rhythm Technical Quality: Fair Exam Date: 01/27/2024 3:53 PM Exam Location: Echo Lab Patient Status: Inpatient Admit Date: 01/27/2024 Staff Ordering Physician: Madelin Marin PA-C Claims Adjuster: Priyanka De Jesus RDCS Attending Provider: Norris Bowman MD Referring Physician: Tomas RANDHAWA; Exam Type: CA echo doppler color flow Study Info Indications - LEG SWELLING Complete two-dimensional, color flow and Doppler transthoracic echocardiogram is performed. Summary 1. Complete two-dimensional, color flow and Doppler transthoracic echocardiogram is performed. 2. Left ventricular chamber dimension is normal. 3. Left ventricular systolic function is normal, estimated at 60-65%. 4. The left ventricular diastolic function is grade I diastolic dysfunction. 5. Right ventricular systolic function is normal. 6. There is mild tricuspid valve regurgitation. 7. Normal inferior vena cava with >50% collapse upon inspiration consistent with normal right atrial pressure, 3 mmHg. Left Ventricle Left ventricular chamber dimension is normal. Left ventricular systolic function is normal, estimated at 60-65%. There is no increased left ventricular wall thickness. The left ventricular diastolic function is grade I diastolic dysfunction. Right Ventricle Right ventricular chamber dimension is normal. Right ventricular systolic function is normal. Left Atria Left atrial chamber dimension is normal. Right Atria Right atrial chamber dimension is normal. Atrial Septum Intact interatrial septum visualized by color flow imaging. Aortic Valve The aortic valve is not well visualized. There is no aortic valve stenosis. There is no aortic valve regurgitation. Pulmonic Valve The pulmonic valve is not well visualized. Mitral Valve There is trace mitral valve regurgitation. Tricuspid Valve There is mild tricuspid valve regurgitation. Pericardium/Pleural There is no pericardial effusion. Inferior Vena Cava Normal inferior vena cava with >50% collapse upon inspiration consistent with normal right atrial pressure, 3 mmHg. Aorta The aortic root size at the sinus of Valsalva is not well visualized. Left Ventricular Outflow Tract Name Value Normal LVOT 2D LVOT Diameter 1.8 cm LVOT Doppler LVOT Peak Gradient 9 mmHg LVOT Mean Gradient 5 mmHg LVOT VTI 34 cm LVOT VTI/AV VTI Ratio 1.0 LVOT Stroke Volume 83 ml LVOT CO 6.4 l/min LVOT CI 2.9 l/min/m2 Pulmonic Valve Name Value Normal RVOT Doppler RVOT Peak Gradient 4 mmHg PV Doppler
[2024-01-27 10:01] LABS: Alanine Aminotransferase 14 U/L (6-35); Albumin Level 4.6 g/dL (3.5-5.1); Alkaline Phosphatase 80 U/L (38-126); Anion Gap 7 mmol/L (4-12); Aspartate Amino Transferase 29 U/L (14-36); Bilirubin,Total 0.6 mg/dL (0.2-1.3); Blood Urea Nitrogen 31 mg/dL (7-17); Calcium 9.3 mg/dL (8.4-10.2); Carbon Dioxide 31 mmol/L (22-30); Chloride 98 mmol/L (98-107); Estimated CRCL calculation 102 ml/min; Estimated Glomerular Filt Rate > 60; Glucose 104 mg/dL (65-110); Potassium 4.3 mmol/L (3.4-5.0); Sodium 136 mmol/L (137-145)
[2024-01-27 10:06] LABS: Basophils Absolute Auto 0.1 K/mm3 (0.0-0.1); Basophils Percent Auto 1.3 % (0.2-1.2); Eosinophils Absolute Auto 0.2 K/mm3 (0-0.3); Eosinophils Percent Auto 3.5 % (0-4.4); Hematocrit 23.5 % (37.0-47.0); Immature Granulocyte Absolute 0.03 K/mm3 (0.00-0.031); Immature Granulocyte Percent A 0.5 % (0-0.5); Lymphocytes Absolute Auto 1.11 K/mm3 (0.9-3.2); Lymphocytes Percent Auto 20.2 % (18.3-44.2); Mean Corpuscular HGB Conc 24.3 g/dl (32-36); Mean Corpuscular Hemoglobin 16.6 pg (26-34); Mean Corpuscular Volume 68.3 fl (80-100); Mean Platelet Volume 10.9 fl (7.4-10.4); Monocytes Absolute Auto 0.5 K/mm3 (0.1-0.6); Monocytes Percent Auto 9.3 % (2.6-8.5); Neutrophils Absolute Auto 3.6 K/mm3 (1.3-6.7); Neutrophils Percent Auto 65.2 % (45.5-73.1); Platelet Count Result 506 k/mm3 (150-375); Red Blood Count 3.44 M/mm3 (4.2-5.4); Red Cell Distribution Width 23.1 % (11.5-14.5); White Blood Count 5.5 K/mm3 (4.5-10.0)
[2024-01-27 10:28] LABS: Hemoglobin 5.7 g/dL (12.0-15.0)
[2024-01-27 10:42] LABS: Hypochromasia 3+; Ovalocytes 2+; Platelet Estimate Increased (Adequate); Schistocytes None Seen; Stomatocytes 2+
--- NOTE | 2024-01-27 10:49 | ED.GENADULT ---
HPI - General Adult General Chief complaint: Recheck/Abnormal Lab/Rx Stated complaint: Blood work- sent by dr Time Seen by Provider: 01/27/24 09:27 Source: patient and family Mode of arrival: ambulatory Limitations: no limitations History of Present Illness HPI narrative: 58-year-old with a history of hyper IgE syndrome, and anemia was brought in by family with complaints of low hemoglobin. Patient states that she had lab work done at the doctor's office yesterday and was advised to come to the ER as the hemoglobin was 5.7. Patient presently denies having any dizziness, lightheadedness, chest pain, shortness of breath or abdominal pain. Denies any blood in the stool or black color stool. Family reports that she had recent colonoscopy and EGD in September 2023 which was unremarkable . Onset (ago): day(s) (1) Pain Consistency: constant Relieving factors: none Exacerbating factors: none Associated symptoms: denies other symptoms Related Data Allergies Allergy/AdvReac Type Severity Reaction Status Date / Time No Known Allergies Allergy Verified 01/27/24 09:32 Review of Systems Review of Systems: All systems reviewed & are unremarkable except as noted in HPI and below Constitutional: Constitutional: Reports no additional constitutional complaints Eyes: Eyes: Reports no additional eye complaints ENT: Reports system reviewed and no additional complaints, except as documented Cardiovascular: Cardiovascular: Reports no additional cardiovascular complaints Respiratory: Respiratory: Reports no additional respiratory complaints Musculoskeletal: Musculoskeletal: Reports no additional musculoskeletal complaints Integumentary/Breasts: Skin/Breast: Reports system reviewed and no additional complaints, except as docu Neurologic: Reports system reviewed and no additional complaints, except as documented PMFSH Past Medical History Medical History Allergic rhinitis, unspecified Asthma Body mass index [BMI] 45.0-49.9, adult (01/07/19) Chronic obstructive pulmonary disease with (acute) exacerbation Essential (primary) hypertension History of intellectual disability Iron deficiency anemia Neuropathy of left foot Surgical History Surgical History H/O: hysterectomy (~2004) Hx of eye surgery (~2015) Right Family History Family History Sibling Asthma Social History Social History Social History: Caffeine-occasionally Smoking status: Never smoker Second hand tobacco smoke exposure: No Alcohol intake: never Substance use: never Substance use type: does not use Lack of Transportation: No Lack of Food: Never True Current Housing: I Have Housing Concerned About Future Housing: No Difficulty Paying Gas/Electric Bills: No Difficulty Paying for Meds: No Currently Unemployed: No Education: High School Diploma/GED Difficulty w/ Childcare or Family Care: No Living arrangements: with family Gender identity (if verbalized by the patient): Female Spiritual care concerns: No Exam Narrative: GENERAL: Well-appearing, well-nourished, and in no acute distress. HEAD: Normocephalic, atraumatic. EYES: PERRLA and EOMI. ENT: Nares clear, no rhinorrhea or epistaxis. Mucous membranes moist. NECK: Supple. CHEST: Clear to auscultation. No respiratory distress. HEART: Regular rate and rhythm. No murmur heard. Normal peripheral pulses. ABDOMEN: Soft, nontender, nondistended, normal active bowel sounds. Gauiac negative EXTREMITIES: Normal range of motion. No edema. SKIN: Warm, dry, no rash. NEURO: No focal deficits. Alert and oriented x3. PSYCH: Normal mood and affect. Course Course Emergency Course: Notified patient and family about her lab work agreeable with admission and transfusion
[2024-01-27 12:01] LABS: Appearance Urine Clear (Clear); Bacteria Urine Rare /hpf; Bilirubin Urine Negative (Negative); Blood Urine Negative (Negative); Color Urine Yellow (Yellow); Glucose Urine UA Negative (Negative); Ketones Urine Negative (Negative); Leukocyte Esterase Ur 2+ LEU/UL (Negative); Need Manual Microscopic Reviewed; Nitrate Urine Negative (Negative); Non Pathogenic Casts 0-2; Protein Urine Negative (Negative); RBC Urine 0-2 /hpf (0-2); Specific Grav Ur 1.014 (1.001-1.035); Squamous Epithelial Cell Urine None Seen /hpf (Few); Urobilinogen Urine 0.2 mg/dL (<2.0); WBC Urine 0-5 /hpf (0-3); pH Urine 6.5 (5.0-9.0)
[2024-01-27 12:02] LABS: Add Urine Microscopic? YES
--- NOTE | 2024-01-27 12:25 | ADMGEN ---
This patient, Brandy Avila, was admitted to Medical Room 256-. Patient/family oriented to hospital policies and general routines including ID bracelet, bed and alarms, visiting hours, pain management, procedures, bathroom and other care routines, personal items, smoking policy, room service/diet, and visiting hours. Information on how to activate the Rapid Response Team has been discussed. Patient/Family are encouraged to report perceived risks to care and to ask questions if they do not understand what they are told or what they should do.
--- NOTE | 2024-01-27 13:47 | PM.IMHP ---
H&P: HPI History of Present Illness Date/Time: 01/27/24 13:47 Chief Complaint: told by my doctor to come into the emergency room due to my labs Narrative: patient is a 58-year-old female who presented emergency room at the recommendation of an outpatient provider due to decreased hemoglobin. Patient states that she does not think that she has ever been told that she is anemic in the past. She has some dyspnea on exertion that she has noticed in the last couple months but overall has no symptoms of this. She specifically denies lightheadedness, dizziness, nausea, vomiting, chest pain, shortness of breath at rest, diarrhea, constipation, black stools, or heartburn symptoms. When questioned why she had a colonoscopy and EGD in the past she was unsure but she did have 1 recently in September. She has a history of hysterectomy and does not have periods. She recently had a mammogram which was normal. She has noticed that she has had nonpitting edema in her lower extremities bilaterally the last few months but says she really only notices it when her socks are on. She does not drink alcohol. Review of Systems Review of Systems: All systems reviewed & are unremarkable except as noted in HPI and below PMFSH Past Medical History Medical History Allergic rhinitis, unspecified Asthma Body mass index [BMI] 45.0-49.9, adult (01/07/19) Chronic obstructive pulmonary disease with (acute) exacerbation Essential (primary) hypertension History of intellectual disability Iron deficiency anemia Neuropathy of left foot Surgical History Surgical History H/O: hysterectomy (~2004) Hx of eye surgery (~2015) Right Family History Family History Sibling Asthma Social History Social History Social History: Caffeine-occasionally Smoking status: Never smoker Second hand tobacco smoke exposure: No Alcohol intake: never Substance use: never Substance use type: does not use Do You Feel Safe in your Home?: Yes Lack of Transportation: No Lack of Food: Never True Current Housing: I Have Housing Concerned About Future Housing: No Difficulty Paying Gas/Electric Bills: No Difficulty Paying for Meds: No Currently Unemployed: No Education: High School Diploma/GED Difficulty w/ Childcare or Family Care: No Living arrangements: with family Gender identity (if verbalized by the patient): Female Spiritual care concerns: No Meds Home Medications and Allergies Home Medications Medication Instructions Recorded Confirmed Type Symbicort 160 mcg-4.5 2 puff inhalation Q12H #10.2 grams 10/09/22 01/27/24 Rx mcg/actuation HFA aerosol inhaler (budesonide-formoterol) albuterol sulfate 2.5 mg/3 mL 2.5 mg (3 mL) inhalation Q4H PRN 01/07/24 01/27/24 Rx (0.083 %) solution for nebulization shortness of breath or wheezing #75 mL albuterol sulfate 90 mcg/actuation 1 - 2 inh inhalation Q4-6H PRN 01/07/24 01/27/24 Rx aerosol inhaler (ProAir HFA) shortness of breath or wheezing #6.7 grams omalizumab 150 mg/mL subcutaneous 375 mg (2.5 mL) subcut .q2 weeks 01/13/24 01/27/24 Rx syringe (Xolair) #5 mL valsartan 160 1 tablet PO DAILY #90 tabs 01/15/24 01/27/24 Rx mg-hydrochlorothiazide 25 mg tablet Allergies Allergy/AdvReac Type Severity Reaction Status Date / Time No Known Allergies Allergy Verified 01/27/24 12:30 Vital Signs Vital Signs - 24 hr 01/27/24 09:26 01/27/24 09:47 01/27/24 10:17 Temperature 98.4 F 97.6 F 97.8 F Pulse Rate 85 98 96 Respiratory Rate 16 16 16 Blood Pressure 171/64 H 179/71 H 167/97 H Pulse Oximetry 99 98 100 Oxygen Delivery Room Air 01/27/24 10:32 01/27/24 11:26 01/27/24 11:57 Temperature 98.3 F 98.6 F Pulse Rate 97
[2024-01-27 14:03] LABS: Immature Reticulocyte Fraction 27.1 % (3.0-15.9); Reticulocyte Hemoglobin Conten 15.3 pg (28.2-36.6); Reticulocyte Percent 3.03 % (0.7-4.3); Reticulocytes Absolute 0.11 10^6/uL (0.02-0.10)
[2024-01-27 14:30] LABS: Lactate Dehydrogenase 252 U/L (120-246)
[2024-01-27 18:18] LABS: Hemoglobin 8.3 g/dL (12.0-15.0)
[2024-01-27 19:42] LABS: Folic Acid 14.1 ng/mL (2.76->20)
[2024-01-27 20:27] LABS: Iron 41 ug/dL (37-170)
[2024-01-27] MEDS: FLUTICASONE/SALMETEROL 115-21 MCG INHALER 1 PUFF 2 PUFF INHALATION (20:33)
[2024-01-27 20:38] LABS: Percent Iron Saturation 8 % (20-50)
[2024-01-27 21:01] LABS: Ferritin 4.07 ng/mL (11.1-264)
[2024-01-28] VITALS (9 sets, daily range): BP systolic 113–133; BP diastolic 38–72; PULSE 75–97; RESP 16–19; TEMP 36.4–37.3; O2SAT 92–100
[2024-01-28] MEDS: ACETAMINOPHEN 325 MG TABLET 650 MG PO (04:53)
[2024-01-28 05:09] LABS: Basophils Absolute Auto 0.1 K/mm3 (0.0-0.1); Basophils Percent Auto 1.5 % (0.2-1.2); Eosinophils Absolute Auto 0.2 K/mm3 (0-0.3); Eosinophils Percent Auto 4.4 % (0-4.4); Hematocrit 29.5 % (37.0-47.0); Hemoglobin 7.9 g/dL (12.0-15.0); Immature Granulocyte Absolute 0.01 K/mm3 (0.00-0.031); Immature Granulocyte Percent A 0.2 % (0-0.5); Lymphocytes Percent Auto 27.4 % (18.3-44.2); Mean Corpuscular HGB Conc 26.8 g/dl (32-36); Mean Corpuscular Hemoglobin 19.2 pg (26-34); Mean Corpuscular Volume 71.8 fl (80-100); Mean Platelet Volume 10.2 fl (7.4-10.4); Monocytes Absolute Auto 0.5 K/mm3 (0.1-0.6); Monocytes Percent Auto 10.3 % (2.6-8.5); Neutrophils Absolute Auto 2.7 K/mm3 (1.3-6.7); Neutrophils Percent Auto 56.2 % (45.5-73.1); Platelet Count Result 472 k/mm3 (150-375); Red Blood Count 4.11 M/mm3 (4.2-5.4); White Blood Count 4.7 K/mm3 (4.5-10.0)
[2024-01-28 05:28] LABS: Anion Gap 7 mmol/L (4-12); Blood Urea Nitrogen 20 mg/dL (7-17); Calcium 9.4 mg/dL (8.4-10.2); Carbon Dioxide 32 mmol/L (22-30); Chloride 100 mmol/L (98-107); Estimated CRCL calculation 87 ml/min; Estimated Glomerular Filt Rate > 60; Glucose 92 mg/dL (65-110); Potassium 4.3 mmol/L (3.4-5.0); Sodium 139 mmol/L (137-145)
[2024-01-28 05:51] LABS: Anisocytosis 1+; Hypochromasia 3+; Ovalocytes 1+; Platelet Estimate Increased (Adequate)
[2024-01-28 05:52] LABS: Schistocytes None Seen; Stomatocytes 2+
[2024-01-28] MEDS: FLUTICASONE/SALMETEROL 115-21 MCG INHALER 1 PUFF 2 PUFF INHALATION ×2 (07:27→20:49)
[2024-01-28] MEDS: VALSARTAN 160 MG TABLET PO (08:18)
[2024-01-28] MEDS: hydroCHLOROthiazide 25 MG TABLET PO (08:18)
[2024-01-28] MEDS: PANTOPRAZOLE 40 MG TABLET PO (08:19)
--- NOTE | 2024-01-28 08:37 | PM.IMPN ---
Progress Note: A&P Assessment and Plan (1) Acute on chronic anemia: Code(s): D64.9 - Anemia, unspecified Status: Acute Assessment and Plan: 01/27/24: Patient is being admitted for anemia and on review of the EMR looks like she has had history of this in the past although she does not recall this - patient's hemoglobin is 5.7 down from 8.1 May last year - will obtain iron studies, Ifob, B12, folate, TSH, haptoglobin, peripheral smear,and LDH. the haptoglobin was not able to be run off the original blood and will be ran after transfusions were already infused. - hemolytic anemia seems less likely due to bilirubin being normal but still on the differential. If lab testing is concerning may consider splenic u/s - EGD September 2023 did show gastritis and colonoscopy showed hemorrhoids. Patient denies dark stool and reportedly stool occult test was negative in the ER. no GI symptoms per patient. Will start protonix daily - 2 units of blood ordered for transfusion - will repeat hemoglobin after from to ensure it is stable. Once stable she can come off telemetry - will consult Hematology 01/28/24: Patient received 2 units of packed red blood cells this admission Hemoglobin 7.9 today Continue Protonix Hematology consulted Iron level 41 Total iron binding capacity is 533 Ferritin 4.0 Continue ferrous sulfate Haptoglobin is pending Patient received iron 500 mg x 1 in the ED (2) Hypertension: Qualifiers: Hypertension type: primary hypertension Qualified Code(s): I10 - Essential (primary) hypertension Code(s): I10 - Essential (primary) hypertension Status: Acute Assessment and Plan: 01/27/24: last blood pressure 152/77 - continue valsartan and hydrochlorothiazide 01/28/24: Blood pressure 113/38 to 129/71 Home meds were restarted yesterday Continue current treatment (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 01/28/24: Hematology following Albuterol p.r.n. (4) History of intellectual disability: Code(s): Z86.59 - Personal history of other mental and behavioral disorders Status: Acute Assessment and Plan: 01/27/24: fairly high functioning 01/28/24: Of note (5) Gastritis: Code(s): K29.70 - Gastritis, unspecified, without bleeding Status: Acute Assessment and Plan: 01/27/24: noted on EGD, will start PPI - consider GI consult if Ifob is positive 01/28/24: Continue Protonix Occult blood stool negative in the ED (6) Leg swelling: Code(s): M79.89 - Other specified soft tissue disorders Status: Acute Assessment and Plan: 01/27/24: patient is noted to have nonpitting edema to the bilateral lower extremities which she says is new within the last couple of weeks. No DVT suspected since no erythema and this is bilateral. Will do echo since patient also has dyspnea on exertion although I believe the dyspnea on exertion is likely from anemia. continue hydrochlorothiazide 01/28/24: Echo resulted within normal LV systolic function and an estimated EF of 60-65%, grade 1 diastolic dysfunction Continue hydrochlorothiazide Time Spent With Patient Time with patient: 25 - 35 minutes Subjective Date/time seen: 01/28/24 08:37 Interval history: This is a 58 old female who presented yesterday for evaluation of abnormal labs. Initial labs showing a hemoglobin of 5.7, AST 65, lipid panel was negative, kidney function was normal. The UA was performed which showed 2+ leukocytes otherwise was normal. Vitamin B12 was 789. Iron level was 41, total iron binding capacity 533, ferritin 4.07. Haptoglobin is pending. Patient received 2 units of packed red blood cells. Echocardiogram was obtained and is pending. Order placed for a sto
[2024-01-28] MEDS: FERROUS SULFATE 325 MG TABLET DR PO ×2 (10:27→17:54)
[2024-01-28] MEDS: IRON SUCROSE COMPLEX 500 MG in SODIUM CHLORIDE 0.9% IV 250 ML 79 MG IVPB (10:30)
[2024-01-28 11:49] LABS: IFOB Positive Control Positive; Immunochemical Fecal Occult Bl Negative (N)
--- NOTE | 2024-01-28 16:50 | PDONCCN ---
HPI - Date of Consult Date/Time: 01/29/24 13:52 <Bill Trejo - 01/29/24 13:54> 01/28/24 16:50 <Gladys Lewis - 01/28/24 17:04> Requesting Physician: Norris Bowman MD <Bill Trejo - 01/29/24 13:54> Norris Bowman MD <Gladys Lewis - 01/28/24 17:04> Primary Care Provider: Koki Vaughn MD <Bill Trejo - 01/29/24 13:54> Koki Vaughn MD <Gladys Lewis - 01/28/24 17:04> - Consult Narrative Reason for consult: Anemia <Gladys Lewis - 01/28/24 17:04> Narrative: Brandy Avila is a 58 year old female <Bill Trejo - 01/29/24 13:54> Brandy Avila is a 58 year old female with a past medical history of asthma, COPD, HTN, KENNY, intellectual disability. She reports to the ED due to her labs after a PCP visit. Her hemoglobin was 5.7 on presentation. She is not a great historian d/t her intellectual disability and information was based on discussion with patient and chart review. She has received 2 units of blood upon admission. Also received an iron infusion this morning. She is unsure if she has dealt with anemia before.. but chart review shows low hemoglobin in March 2023. She had colonoscopy and EGD in Sep 2023 which showed hemorrhoids and hiatal hernia, and gastritis. She denies any active bleeding at this time. She doesn't know if she eats red meat. She is unsure if has kidney issues. She has never given blood. She does not report any symptoms other than fatigue at this time. Labs are notable for Hgb 7.9, Hct 29, Plt 472, MCV 71.8, B12 789, Iron 41 % sat 8 TIBC 533 Retic low. <Gladys Lewis - 01/28/24 17:04> Review of Systems - Review of Systems All systems reviewed & are unremarkable except as noted in HPI and bel <Gladys Lewis - 01/28/24 17:04> - Neurologic Reports system reviewed and no additional complaints, except as documented <Gladys Lewis - 01/28/24 17:04> [facility] Medical History: Medical History (Last Reviewed 01/27/24 @ 14:12 by Madelin Marin PA-C) Allergic rhinitis, unspecified Asthma Body mass index [BMI] 45.0-49.9, adult Onset Date: 01/07/19 Chronic obstructive pulmonary disease with (acute) exacerbation Essential (primary) hypertension History of intellectual disability Iron deficiency anemia Neuropathy of left foot <NeilBill M. - 01/29/24 13:54> Medical History (Last Reviewed 01/27/24 @ 14:12 by Madelin Marin PA-C) Allergic rhinitis, unspecified Asthma Body mass index [BMI] 45.0-49.9, adult Onset Date: 01/07/19 Chronic obstructive pulmonary disease with (acute) exacerbation Essential (primary) hypertension History of intellectual disability Iron deficiency anemia Neuropathy of left foot <DebbieGladys - 01/28/24 17:04> Surgical History: Surgical History (Last Reviewed 01/27/24 @ 14:12 by Madelin Marin PA-C) H/O: hysterectomy Onset Date: ~2004 Hx of eye surgery Onset Date: ~2015 Right <NeilBill M. - 01/29/24 13:54> Surgical History (Last Reviewed 01/27/24 @ 14:12 by Madelin Marin PA-C) H/O: hysterectomy Onset Date: ~2004 Hx of eye surgery Onset Date: ~2015 Right <Francis Lewisne - 01/28/24 17:04> Family History: Family History (Last Reviewed 01/27/24 @ 14:12 by Madelin Marin PA-C) Sibling Asthma <Neil,Bill M. - 01/29/24 13:54> Family History (Last Reviewed 01/27/24 @ 14:12 by Madelin Marin PA-C) Sibling Asthma <Francis Lewisne - 01/28/24 17:04> - Social History Social History: Social History (Last Reviewed 01/27/24 @ 14:13 by Madelin Marin PA-C) Gender Identity: Gender identity (if verbalized by the patient): Female Alcohol Use: Alcohol intake: never Substance Use: Substance use: never Substance use type: does not use Others: Spiritual care concerns: No Living [place]
[2024-01-29] VITALS: BP 146/61; PULSE 85; PULSE 91; RESP 16; TEMP 36.4; O2SAT 93
[2024-01-29 04:00] VITALS: BP 139/71; PULSE 83; PULSE 96; RESP 18; TEMP 36.2; O2SAT 92
[2024-01-29 07:05] VITALS: BP 139/71; PULSE 83; RESP 18; TEMP 36.3; O2SAT 92
[2024-01-29 07:57] LABS: Hematocrit 31.1 % (37.0-47.0); Hemoglobin 8.1 g/dL (12.0-15.0); Mean Corpuscular Hemoglobin 19.3 pg (26-34); Mean Corpuscular Volume 74.2 fl (80-100); Mean Platelet Volume 10.6 fl (7.4-10.4); Platelet Count Result 523 k/mm3 (150-375); Red Blood Count 4.19 M/mm3 (4.2-5.4); Red Cell Distribution Width 25.8 % (11.5-14.5); White Blood Count 5.7 K/mm3 (4.5-10.0)
[2024-01-29 08:00] VITALS: PULSE 90
[2024-01-29 08:10] VITALS: PULSE 82; RESP 18; O2SAT 93
[2024-01-29 08:10] LABS: Alanine Aminotransferase 12 U/L (6-35); Albumin Level 4.1 g/dL (3.5-5.1); Alkaline Phosphatase 81 U/L (38-126); Anion Gap 6 mmol/L (4-12); Aspartate Amino Transferase 65 U/L (14-36); Bilirubin,Total 0.6 mg/dL (0.2-1.3); Blood Urea Nitrogen 18 mg/dL (7-17); Calcium 9.6 mg/dL (8.4-10.2); Carbon Dioxide 32 mmol/L (22-30); Chloride 100 mmol/L (98-107); Estimated CRCL calculation 87 ml/min; Estimated Glomerular Filt Rate > 60; Glucose 79 mg/dL (65-110); Magnesium 2.4 mg/dL (1.6-2.3); Potassium 3.7 mmol/L (3.4-5.0); Sodium 138 mmol/L (137-145)
[2024-01-29] MEDS: FLUTICASONE/SALMETEROL 115-21 MCG INHALER 1 PUFF 2 PUFF INHALATION (08:10)
[2024-01-29] MEDS: VALSARTAN 160 MG TABLET PO (09:07)
[2024-01-29] MEDS: FERROUS SULFATE 325 MG TABLET DR PO (09:07)
[2024-01-29] MEDS: hydroCHLOROthiazide 25 MG TABLET PO (09:07)
[2024-01-29] MEDS: PANTOPRAZOLE 40 MG TABLET PO (09:07)
[2024-01-29] MEDS: IRON SUCROSE COMPLEX 500 MG in SODIUM CHLORIDE 0.9% IV 250 ML 79 MG IVPB (09:08)
--- NOTE | 2024-01-29 09:29 | P.PNIM_ITS ---
Progress Note: A&P Assessment and Plan (1) Acute on chronic anemia: Code(s): D64.9 - Anemia, unspecified Status: Acute Assessment and Plan: 01/27/24: Patient is being admitted for anemia and on review of the EMR looks like she has had history of this in the past although she does not recall this - patient's hemoglobin is 5.7 down from 8.1 May last year - will obtain iron studies, Ifob, B12, folate, TSH, haptoglobin, peripheral smear,and LDH. the haptoglobin was not able to be run off the original blood and will be ran after transfusions were already infused. - hemolytic anemia seems less likely due to bilirubin being normal but still on the differential. If lab testing is concerning may consider splenic u/s - EGD September 2023 did show gastritis and colonoscopy showed hemorrhoids. Patient denies dark stool and reportedly stool occult test was negative in the ER. no GI symptoms per patient. Will start protonix daily - 2 units of blood ordered for transfusion - will repeat hemoglobin after from to ensure it is stable. Once stable she can come off telemetry - will consult Hematology 01/28/24: * Patient received 2 units of packed red blood cells this admission * Hemoglobin 7.9 today * Continue Protonix * Hematology consulted * Iron level 41 * Total iron binding capacity is 533 * Ferritin 4.0 * Continue ferrous sulfate * Haptoglobin is pending * Patient received iron 500 mg x 1 in the ED 01/29/24: * Hemoglobin 8.1 today * Hematology following * Patient does have deficiency anemia and has received a few iron infusion this admission * We will go ahead and start oral iron today * Porter test was negative (2) Hypertension: Qualifiers: Hypertension type: primary hypertension Qualified Code(s): I10 - Essential (primary) hypertension Code(s): I10 - Essential (primary) hypertension Status: Acute Assessment and Plan: 01/27/24: last blood pressure 152/77 - continue valsartan and hydrochlorothiazide 01/28/24: * Blood pressure 113/38 to 129/71 * Home meds were restarted yesterday * Continue current treatment 01/29/24: * No change to current treatment plan (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 01/28/24: * Hematology following * Albuterol p.r.n. 01/29/24: * No change (4) History of intellectual disability: Code(s): Z86.59 - Personal history of other mental and behavioral disorders Status: Acute Assessment and Plan: 01/27/24: * fairly high functioning 01/28/24: * Of note (5) Gastritis: Code(s): K29.70 - Gastritis, unspecified, without bleeding Status: Acute Assessment and Plan: 01/27/24: * noted on EGD, will start PPI * - consider GI consult if Ifob is positive 01/28/24: * Continue Protonix * Occult blood stool negative in the ED 01/29/2024: * No change to current treatment plan (6) Leg swelling: Code(s): M79.89 - Other specified soft tissue disorders Status: Acute Assessment and Plan: 01/27/24: * patient is noted to have nonpitting edema to the bilateral lower extremities which she says is new within the last couple of weeks. No DVT suspected since no erythema and this is bilateral. Will do echo since patient also has dyspnea on exertion although I believe the dyspn
--- NOTE | 2024-01-29 09:29 | PM.IMPN ---
Progress Note: A&P Assessment and Plan (1) Acute on chronic anemia: Code(s): D64.9 - Anemia, unspecified Status: Acute Assessment and Plan: 01/27/24: Patient is being admitted for anemia and on review of the EMR looks like she has had history of this in the past although she does not recall this - patient's hemoglobin is 5.7 down from 8.1 May last year - will obtain iron studies, Ifob, B12, folate, TSH, haptoglobin, peripheral smear,and LDH. the haptoglobin was not able to be run off the original blood and will be ran after transfusions were already infused. - hemolytic anemia seems less likely due to bilirubin being normal but still on the differential. If lab testing is concerning may consider splenic u/s - EGD September 2023 did show gastritis and colonoscopy showed hemorrhoids. Patient denies dark stool and reportedly stool occult test was negative in the ER. no GI symptoms per patient. Will start protonix daily - 2 units of blood ordered for transfusion - will repeat hemoglobin after from to ensure it is stable. Once stable she can come off telemetry - will consult Hematology 01/28/24: Patient received 2 units of packed red blood cells this admission Hemoglobin 7.9 today Continue Protonix Hematology consulted Iron level 41 Total iron binding capacity is 533 Ferritin 4.0 Continue ferrous sulfate Haptoglobin is pending Patient received iron 500 mg x 1 in the ED 01/29/24: Hemoglobin 8.1 today Hematology following Patient does have deficiency anemia and has received a few iron infusion this admission We will go ahead and start oral iron today Porter test was negative (2) Hypertension: Qualifiers: Hypertension type: primary hypertension Qualified Code(s): I10 - Essential (primary) hypertension Code(s): I10 - Essential (primary) hypertension Status: Acute Assessment and Plan: 01/27/24: last blood pressure 152/77 - continue valsartan and hydrochlorothiazide 01/28/24: Blood pressure 113/38 to 129/71 Home meds were restarted yesterday Continue current treatment 01/29/24: No change to current treatment plan (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 01/28/24: Hematology following Albuterol p.r.n. 01/29/24: No change (4) History of intellectual disability: Code(s): Z86.59 - Personal history of other mental and behavioral disorders Status: Acute Assessment and Plan: 01/27/24: fairly high functioning 01/28/24: Of note (5) Gastritis: Code(s): K29.70 - Gastritis, unspecified, without bleeding Status: Acute Assessment and Plan: 01/27/24: noted on EGD, will start PPI - consider GI consult if Ifob is positive 01/28/24: Continue Protonix Occult blood stool negative in the ED 01/29/2024: No change to current treatment plan (6) Leg swelling: Code(s): M79.89 - Other specified soft tissue disorders Status: Acute Assessment and Plan: 01/27/24: patient is noted to have nonpitting edema to the bilateral lower extremities which she says is new within the last couple of weeks. No DVT suspected since no erythema and this is bilateral. Will do echo since patient also has dyspnea on exertion although I believe the dyspnea on exertion is likely from anemia. continue hydrochlorothiazide 01/28/24: Echo resulted within normal LV systolic function and an estimated EF of 60-65%, grade 1 diastolic dysfunction Continue hydrochlorothiazide 01/29/2024: No change to current treatment plan Time Spent With Patient Time with patient: 25 - 35 minutes Subjective Date/time seen: 01/29/24 09:29 Interval history: 01/28/24: This is a 58 old female who presented yesterday for evaluation of abnormal labs. Initi
--- NOTE | 2024-01-29 11:42 | PC.NURSE ---
On 01/29/24, the student, [Jacob Lambert], provided care and completed [facility] documentation on this patient. I have reviewed the student's documentation and agree with the findings.
[2024-01-29 12:00] VITALS: BP 138/74; PULSE 84; PULSE 87; RESP 16; TEMP 36.6; O2SAT 100
--- NOTE | 2024-01-29 12:23 | PM.DS ---
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 Status: Acute (4) History of intellectual disability: Code(s): Z86.59 - Personal history of other mental and behavioral disorders Status: Acute (5) Gastritis: Code(s): K29.70 - Gastritis, unspecified, without bleeding Status: Acute (6) Leg swelling: Code(s): M79.89 - Other specified soft tissue disorders Status: Acute DS: Summary Hospital Course Reason for hospitalization: Acute on chronic anemia Hypertension Hyper IgE syndrome History of intellectual disability Gastritis Leg swelling Hospital Course: Interval history: 01/28/24: This is a 58 old female who presented yesterday for evaluation of abnormal labs.? Initial labs showing a hemoglobin of 5.7, AST 65, lipid panel was negative, kidney function was normal.? The UA was performed which showed 2+ leukocytes otherwise was normal.? Vitamin B12 was 789.? Iron level was 41, total iron binding capacity 533, ferritin 4.07.? Haptoglobin is pending.? Patient received 2 units of packed red blood cells.? Echocardiogram was obtained and is pending.? Order placed for a stool occult blood however it is still on collected.? Oncology/hematology was consulted for anemia workup.? On examination today patient is alert and oriented x3.? She denies any fever, chills, nausea, vomiting, diarrhea, abdominal pain, chest pain, shortness a breath. Labs today show a hemoglobin of 7.9, otherwise unremarkable.? Echo resulted with normal LV systolic function with estimated EF of 60-65%, grade 1 diastolic dysfunction. 01/29/24: Hematology is following and ordered a Porter test which was negative. Iron studies are showing iron deficiency anemia. She will start on po Iron supplement today.? Labs today show hemoglobin 8.1, platelet count 523, otherwise unremarkable.? Patient is stable for discharge at this time. She will continue with ferrous sulfate. She will need to follow up with Hematology in 1 week. Final diagnosis: Iron deficiency anemia, Acute on chronic anemia Status at Discharge Cognitive/behavioral status at discharge: Alert and oriented x3 Functional status at discharge: independent ambulation Overall status at discharge: patient is progressing back to baseline Time Spent with Patient Time attestation: Total time spent providing and/or coordinating discharge services: Time spent: Greater than 30 minutes Exam Narrative: General: In no acute distress, well nourished Head: atraumatic, no encephalopathy Eyes: EOMI, PERRLA, sclera clear ENT: moist mucous membranes, nasal passages clear Neck: supple, no JVD, no adenopathy, trachea midline Cardiac: Normal S1 and S2. RRR, No murmur, gallops or friction rubs, peripheral pulses intact. Respiratory: Lungs clear to auscultation, no adventitious lung sounds, currently on room air Gastrointestinal: soft, non-distended, non-tender, normoactive bowel sounds. Last bowel movement today : voiding without difficulty. Extremities: moves all extremities well, no edema, good ROM Skin: clean, dry, intact. No wounds or lesions. Neuro: Alert and oriented x3, cranial nerves intact, no neuro deficits. Psych: normal mood, normal affect, interactive, pleasant DS: Data Data Completed and Pending Completed studies during hospitalization: none Pending studies at discharge: none Labs on day of discharge:
--- NOTE | 2024-01-29 14:25 | PC.NURSE ---
On 01/29/24, the student, [Nora Whitman], provided care and completed [facility] documentation on this patient. I have reviewed the student's documentation and agree with the findings.
[2024-01-30 20:20] LABS: Haptoglobin 204 mg/dL (43-212)
== END 2024-01-29 14:34 | disposition home or self-care (01) ==
LOC: ANHED 10:54 → ANH2MED 21:20
PROVIDERS: Nurse Practitioner Acute Care; Physician Assistant; Admitting Provider Internal Medicine; Emergency Provider Family Medicine; PCP Family Medicine; Visit Provider Internal Medicine
DX: D50.9 Iron deficiency anemia, unspecified (principal); D82.4 Hyperimmunoglobulin E [IgE] syndrome; D69.6 Thrombocytopenia, unspecified; I51.89 Other ill-defined heart diseases; J44.9 Chronic obstructive pulmonary disease, unspecified; F79 Unspecified intellectual disabilities; K29.70 Gastritis, unspecified, without bleeding; M79.89 Other specified soft tissue disorders; Z90.710 Acquired absence of both cervix and uterus; Z79.51 Long term (current) use of inhaled steroids; Z79.899 Other long term (current) drug therapy
CPT/HCPCS: 36415; 36430; 80048; 80053; 81001; 82274; 82607; 82728; 82746; 83010; 83540; 83550; 83615; 83735; 84443; 85014; 85018; 85025; 85027; 85046; 85610; 86850; 86880; 86900; 86901; 86923; 93306; 94640; 96365; 96366; 96376; 99285; A9270; G0378; J1756; J7050; P9016

== ENCOUNTER 2024-02-11 09:33 | Outpatient (CLI) | payer MEDICARE, MEDICAID, SELFPAY ==
[2024-02-11 20:26] LABS: Alanine Aminotransferase 15 U/L (6-35); Albumin Level 4.6 g/dL (3.5-5.1); Alkaline Phosphatase 83 U/L (38-126); Anion Gap 6 mmol/L (4-12); Aspartate Amino Transferase 39 U/L (14-36); Bilirubin,Total 0.7 mg/dL (0.2-1.3); Blood Urea Nitrogen 23 mg/dL (7-17); Calcium 9.3 mg/dL (8.4-10.2); Carbon Dioxide 32 mmol/L (22-30); Chloride 100 mmol/L (98-107); Estimated Glomerular Filt Rate > 60; Glucose 81 mg/dL (65-110); Sodium 138 mmol/L (137-145)
[2024-02-11 20:34] LABS: Hematocrit 39.6 % (37.0-47.0); Hemoglobin 10.9 g/dL (12.0-15.0); Immature Platelet Fraction Pct 11.7 % (0.9-11.2); Mean Corpuscular HGB Conc 27.5 g/dl (32-36); Mean Corpuscular Hemoglobin 22.9 pg (26-34); Mean Corpuscular Volume 83.2 fl (80-100); Platelet Count Result 240 k/mm3 (150-375); Red Blood Count 4.76 M/mm3 (4.2-5.4); Red Cell Distribution Width 32.5 % (11.5-14.5); White Blood Count 4.5 K/mm3 (4.5-10.0)
[2024-02-11 20:38] LABS: Iron 174 ug/dL (37-170)
[2024-02-11 20:59] LABS: Percent Iron Saturation 42 % (20-50)
== END 2024-02-11 09:34 | disposition home or self-care (01) ==
PROVIDERS: PCP Family Medicine; Visit Provider Nurse Practitioner Family
DX: D64.9 Anemia, unspecified (principal)
CPT/HCPCS: 36415; 80053; 83540; 83550; 85027; 85055

== ENCOUNTER 2024-04-13 10:51 | Outpatient (CLI) | payer MEDICARE, MEDICAID, SELFPAY ==
[2024-04-13 12:01] LABS: Basophils Absolute Auto 0.1 K/mm3 (0.0-0.1); Basophils Percent Auto 0.9 % (0.2-1.2); Eosinophils Absolute Auto 0.2 K/mm3 (0-0.3); Eosinophils Percent Auto 4.3 % (0-4.4); Hematocrit 42.8 % (37.0-47.0); Hemoglobin 13.9 g/dL (12.0-15.0); Immature Granulocyte Absolute 0.01 K/mm3 (0.00-0.031); Immature Granulocyte Percent A 0.2 % (0-0.5); Immature Platelet Fraction Pct 11.9 % (0.9-11.2); Lymphocytes Absolute Auto 1.45 K/mm3 (0.9-3.2); Lymphocytes Percent Auto 27.1 % (18.3-44.2); Mean Corpuscular HGB Conc 32.5 g/dl (32-36); Mean Corpuscular Hemoglobin 30.2 pg (26-34); Mean Corpuscular Volume 92.8 fl (80-100); Mean Platelet Volume 11.3 fl (7.4-10.4); Monocytes Absolute Auto 0.5 K/mm3 (0.1-0.6); Monocytes Percent Auto 9.9 % (2.6-8.5); Neutrophils Absolute Auto 3.1 K/mm3 (1.3-6.7); Neutrophils Percent Auto 57.6 % (45.5-73.1); Platelet Count Result 209 k/mm3 (150-375); Red Blood Count 4.61 M/mm3 (4.2-5.4); Red Cell Distribution Width 17.1 % (11.5-14.5); White Blood Count 5.4 K/mm3 (4.5-10.0)
[2024-04-13 12:17] LABS: Alanine Aminotransferase 13 U/L (6-35); Albumin Level 4.7 g/dL (3.5-5.1); Alkaline Phosphatase 73 U/L (38-126); Anion Gap 7 mmol/L (4-12); Aspartate Amino Transferase 26 U/L (14-36); Bilirubin,Total 0.5 mg/dL (0.2-1.3); Blood Urea Nitrogen 35 mg/dL (7-17); Calcium 9.6 mg/dL (8.4-10.2); Carbon Dioxide 33 mmol/L (22-30); Chloride 97 mmol/L (98-107); Estimated Glomerular Filt Rate > 60; Glucose 85 mg/dL (65-110); Potassium 3.9 mmol/L (3.4-5.0); Sodium 137 mmol/L (137-145)
[2024-04-13 14:02] LABS: Iron 151 ug/dL (37-170)
[2024-04-13 14:03] LABS: Percent Iron Saturation 44 % (20-50)
== END 2024-04-13 10:52 | disposition home or self-care (01) ==
PROVIDERS: PCP Family Medicine; Visit Provider Nurse Practitioner Family
DX: D64.9 Anemia, unspecified (principal); I10 Essential (primary) hypertension
CPT/HCPCS: 36415; 80053; 83540; 83550; 85025; 85055

== ENCOUNTER 2024-07-05 09:45 | Outpatient (CLI) | payer MEDICARE, MEDICAID, SELFPAY ==
--- NOTE | ~2024-07-05 | MM_ITS ---
EXAMINATION: MM screening [facility] BI w marcus HISTORY: Screening mammogram TECHNIQUE: Craniocaudal and mediolateral oblique 3-D tomosynthesis images were obtained and synthetic 2-D images were generated. CAD analysis was submitted and interpreted. COMPARISON: 06/04/2023, 05/09/2021, 01/15/2018 BREAST PARENCHYMAL COMPOSITION:Not Dense. The breasts are almost entirely fatty FINDINGS: No suspicious mass, calcification, or architectural distortion are identified in either francesco ast to suggest malignancy. There has been no suspicious interval change. IMPRESSION: No mammographic evidence of malignancy. Recommend routine screening mammography in one year. BI-RADS Category 1: Negative Reviewed, dictated and finalized at location .
== END 2024-07-05 09:46 | disposition home or self-care (01) ==
LOC: ANHIMG 09:48
PROVIDERS: PCP Family Medicine; Visit Provider Family Medicine
DX: Z12.31 Encounter for screening mammogram for malignant neoplasm of breast (principal)
CPT/HCPCS: 77063; 77067

== ENCOUNTER 2024-08-04 12:32 | Outpatient (CLI) | payer MEDICARE, MEDICAID, SELFPAY ==
[2024-08-04 16:51] LABS: Basophils Absolute Auto 0.1 K/mm3 (0.0-0.1); Basophils Percent Auto 0.9 % (0.2-1.2); Eosinophils Absolute Auto 0.3 K/mm3 (0-0.3); Eosinophils Percent Auto 4.6 % (0-4.4); Hematocrit 41.9 % (37.0-47.0); Hemoglobin 13.6 g/dL (12.0-15.0); Lymphocytes Absolute Auto 1.24 K/mm3 (0.9-3.2); Lymphocytes Percent Auto 22.8 % (18.3-44.2); Mean Corpuscular HGB Conc 32.5 g/dl (32-36); Mean Corpuscular Hemoglobin 32.3 pg (26-34); Mean Corpuscular Volume 99.5 fl (80-100); Mean Platelet Volume 11.6 fl (7.4-10.4); Monocytes Absolute Auto 0.6 K/mm3 (0.1-0.6); Monocytes Percent Auto 10.1 % (2.6-8.5); Neutrophils Absolute Auto 3.4 K/mm3 (1.3-6.7); Neutrophils Percent Auto 61.6 % (45.5-73.1); Nucleated Red Blood Cells Perc 0.4 % (0.0-0.2); Platelet Count Result 217 k/mm3 (150-375); Red Blood Count 4.21 M/mm3 (4.2-5.4); Red Cell Distribution Width 12.4 % (11.5-14.5); White Blood Count 5.4 K/mm3 (4.5-10.0)
[2024-08-04 17:13] LABS: Vitamin D 25 Hydroxy 39.8 ng/mL
[2024-08-04 17:31] LABS: Alanine Aminotransferase 16 U/L (6-35); Albumin Level 4.6 g/dL (3.5-5.1); Alkaline Phosphatase 77 U/L (38-126); Anion Gap 4 mmol/L (4-12); Aspartate Amino Transferase 41 U/L (14-36); Bilirubin,Total 0.4 mg/dL (0.2-1.3); Blood Urea Nitrogen 25 mg/dL (7-17); Calcium 9.3 mg/dL (8.4-10.2); Carbon Dioxide 37 mmol/L (22-30); Chloride 97 mmol/L (98-107); Cholesterol 231 mg/dL (0-200); Estimated Glomerular Filt Rate > 60; Glucose 85 mg/dL (65-110); HDL Direct 81 mg/dL; Potassium 3.9 mmol/L (3.4-5.0); Sodium 138 mmol/L (137-145); Triglycerides 111 mg/dL (<150)
[2024-08-04 18:03] LABS: LDL Cholesterol Direct 94 mg/dL
[2024-08-04 21:09] LABS: Iron 107 ug/dL (37-170)
[2024-08-04 21:20] LABS: Percent Iron Saturation 32 % (20-50)
== END 2024-08-04 12:33 | disposition home or self-care (01) ==
PROVIDERS: PCP Family Medicine; Visit Provider Nurse Practitioner Family
DX: D64.9 Anemia, unspecified (principal); B35.1 Tinea unguium; E78.5 Hyperlipidemia, unspecified; I10 Essential (primary) hypertension; E55.9 Vitamin D deficiency, unspecified
CPT/HCPCS: 36415; 80053; 80061; 82306; 82728; 83540; 83550; 84443; 85025

== ENCOUNTER 2024-12-08 15:39 | Emergency (ER) | payer MEDICARE, MEDICAID, SELFPAY ==
--- NOTE | ~2024-12-08 | CT_ITS ---
EXAMINATION:CT diagnostic chest w con DATE: 12/08/2024 19:27 INDICATION: Right hilar enlargement. TECHNIQUE: Computed tomography (CT) of the chest was performed with 75 mL Omnipaque 350 intravenous c ontrast. Automated exposure control and iterative reconstruction technique were employed. The dose-le ngth product (DLP) was 319.93 mGy-cm. COMPARISON: Chest single view 12/08/2024 FINDINGS: There is mild atelectasis bilaterally. There are airspace opacities in anterior segment rig ht upper lobe. There are centrilobular nodules in the lingula. Calcified left lung nodules and calcif ied left hilar lymph nodes are consistent with old granulomatous disease. No pleural effusion. The he art size is normal. No pericardial effusion. There is left axillary lymphadenopathy with largest node measuring 3.2 x 2.6 cm. There is a large sliding hiatal hernia. There is severe cervical and thoraci c spondylosis. IMPRESSION: 1. Left axillary lymphadenopathy, consistent with metastatic disease versus lymphoma. Ultrasound-guid ed core needle biopsy is recommended. 2. Airspace opacities in anterior segment right upper lobe correlating with the chest radiograph abno rmality, consistent with atelectasis versus pneumonia. 3. Centrilobular nodules in lingula, consistent with mild pneumonia. 4. Large sliding hiatal hernia. Reviewed, dictated and finalized at location A. TRODYNAMICIST IMPRESSION: 1. Left axillary lymphadenopathy, consistent with metastatic disease versus lym phoma. Ultrasound-guided core needle biopsy is recommended. 2. Airspace opacities in anterior segment right upper lobe correlating with the chest radiograph abnormality, consistent with atelectasis versus pneumonia. 3. Centrilobular nodules in lingula, consistent with mild pneumonia. 4. Large sliding hiatal hernia.
--- NOTE | ~2024-12-08 | XR_ITS ---
EXAMINATION: XR chest 1V portable DATE: 12/08/2024 16:07 INDICATION: Shortness of breath. TECHNIQUE: A single frontal view of the chest was obtained. COMPARISON: Chest single view 09/10/2023 FINDINGS: A calcified left lung nodule and calcified left hilar lymph nodes are consistent with old g ranulomatous disease. No pleural effusion or pneumothorax. The heart size is normal. There is enlarge ment of the right hilum. There is a moderate-sized hiatal hernia. IMPRESSION: 1. Enlargement of the right hilum suspicious for malignancy. Chest CT with contrast is recommended. 2. Moderate-sized hiatal hernia. Reviewed, dictated and finalized at location A. SPOOLER IMPRESSION: 1. Enlargement of the right hilum suspicious for malignancy. Chest CT with cont rast is recommended. 2. Moderate-sized hiatal hernia.
--- OUTSIDE RECORDS SUMMARY | 2024-12-08 15:42 | XMS_ITS | Continuity of Care Document ---
Author Organization [facility] Address [address] [place] [address] [address] [place] [address] Phone Care Team Providers Care Air Tucker Name Role Phone Martha MEJIA MD, Riaz Unavailable Unavailable Procedures Procedure Date OFFICE/OUTPATIENT VISIT, [facility] Advance Directives Directive Yes / No Effective Date File Name No Information Encounters Encounter Description Practice Location Reason(s) For Visit Diagnoses Date Provider Providers Copied on Encounter OFFICE/OUTPA TIENT VISIT, [facility] Ophthalmology [facility], [id number] [place] [address] [address], [place], [place], [id number], tel:[phone] [address] [place] [address] [facility] No Information 3 Martha Mello. [address] [facility], [address], [place], [place], [address] , [place]. [phone] Referring Provider: Riaz Thomas MD P, [address] [facility] [address], [place], [place], [address]. tel:[phone] Family History Family Member Type Diagnosis Age At Onset No Information Payers Payer name Insurance type Covered constitution party ID Authoriza tion(s) No Information Social History Type Description Quantity Date Captured Comments Sex Female Smoking Status No Information Chief Complaint And Reason For Visit No Information Plan Of Treatment Date Type Action Status No Information History Of Present Illness Encounter Date Complaint History Of Prese nt Illness No Information Instructions Date Instruction Additional Infor mation No Information Assessments Type Assessment Date No Information
--- OUTSIDE RECORDS SUMMARY | 2024-12-08 15:42 | XMS_ITS | Encounter Summary ---
Author Organization [facility] Address [address] [place] [address] Phone Care Team Providers Care Channel Installer Name Role Phone Koki Vaughn MD Primary Care Provider Encounter Details Date Type Department Care Team (Late st Contact Info) Description 06/11/2022 Telephone [facility] Oncology Services [address] [place] [phone] Eli Soto [place] Social History Tobacco Use Types Packs/Day Years Used Date Smoking Tobacco: Never Smokeless Tobacco: Never Alcohol Use Standard Drinks/Week Comments No 0 (1 standard drink = 0.6 oz pur e alcohol) Sexually Active Control Partners Comments Never Comments No Sex and Gender Information Value Date Recorded Sex Assigned at Not on file Legal Sex Female 8:48 PM CDT Gender Identity Not on file Sexual Orientation Not on file documented as of this encounter Miscellaneous Notes * Telephone Encounter - Eli Soto - 06/11/2022 2:58 PM CDT Mom called in yesterday and wanted to schedule Brandy for her next injection. After doing some investigating, looks like the order/ auth had for the Xolair. Faxed to Gregory Culp REPULPING SUPERVISOR office stating that we needed new order/auth in place before we could schedule her. She called back today andtold her that we were still waiting on the order/auth, would contact her when we had everything. documented in this encounter Plan of Treatment Not on file documented as of this encounter Visit Diagnoses Not on filedocumented in this encounter Care Teams Channel Installer Relationship Specialty Start Date End Date Koki Vaughn MD PCP - General Family Medicine 09/06/20 documented as of this encounter
--- OUTSIDE RECORDS SUMMARY | 2024-12-08 15:42 | XMS_ITS | Clinical Summary ---
Author Organization [facility] Bernard adams [facility] Address [address] [place] [address] Care Team Providers Care Robotics Mechanic Name Role Phone Koki Vaughn MD Primary Care Provider Allergies No known active allergies Medications budesonide-formot Milena (SYMBICORT) 160-4.5 mcg/actuation HFA Aerosol Inhaler Take 2 Puffs by inhalation 2 times daily. Active valsartan-hydroCH LOROthiazide (DIOVAN HCT) 160-25 mg tablet Take 1 Tablet by mouth daily. 4 Active terbinafine HCL (LamISIL) 250 mg tablet Take 1 Tablet by mouth daily. 4 Active levalbuterol HFA (XOPENEX HFA) 45 mcg/Actuation HFA Aerosol Inhaler Take 2 Puffs by inhalation. Active albuterol (PROVENTIL,VENTOL IN) 0.63 mg/3 mL Solution for Nebulization Take 0.63 mg by inhalation one time only. Active Wixela Inhub 250-50 mcg/dose disk inhaler Take 1 Puff by inhalation 2 times daily. 4 Active Active Problems No known active problems Encounters Date Type Department Care Team Description 12/07/2024 External Device Data [facility] ABSTRACTION Provider, Abstract 11/10/2024 External Device Data [facility] ABSTRACTION Provider, Abstract 11/09/2024 External Device Data [facility] ABSTRACTION Provider, Abstract 10/26/2024 External Device Data [facility] ABSTRACTION Provider, Abstract from Last 3 Months Family History Medical History Relation Name Comments No Known Problems Brother No Known Problems Child Heart Disease Father No Known Problems Mother Relation Name Status Comments Brother Alive Child Alive Father Mother Alive Social History Tobacco Use Types Packs/Day Years Used Date Smoking Tobacco: Never Smokeless Tobacco: Never Tobacco Cessation:Counseling Given: Not Answered Alcohol Use Standard Drinks/Week Comments Never 0 (1 standard drink = 0.6 oz pur e alcohol) Comments Unknown Sex and Gender Information Value Date Recorded Sex Assigned at Not on file Legal Sex Female 8:58 AM CDT Gender Identity Not on file Sexual Orientation Not on file Last Filed Vital Signs Vital Sign Reading Time Taken Comments Blood Pressure 141/95 08/11/2024 2:56 PM CDT Pulse 84 08/11/2024 2:48 PM CDT Temperature 36 C (96.8 F) 08/11/2024 2:48 PM CDT Respiratory Rate 15 08/11/2024 2:48 PM CDT Oxygen Saturation 95% 08/11/2024 2:48 PM CDT Inhaled Oxygen Concentration - - Weight 109 kg (240 lb 3.2 oz) 08/11/2024 2:48 PM CDT Height 154.9 cm (5' 1 ) 02/12/2024 3:03 PM CDT Body Mass Index 45.39 02/12/2024 3:03 PM CDT Plan of Treatment Upcoming Encounters Date Type Department Care Team (Late st Contact Info) Description 02/09/2025 11:45 AM CDT Office Visit [facility] Oncology and Hematology - [place] [address] [facility] [address] [place] [address] Bill Trejo MD [address] [facility] [address] [place] [address] Health Maintenance Due Date Last Done Comments Pre-Diabetes and Diabetes Screening 1966 DTAP/TDAP/TD VACCINES (1 - Tdap) 1985 HEPATITIS B VACCINES (1 of 3 - 19+ 3-dose series) 06/21 CERVICAL CANCER SCREENING 1996 BREAST CANCER SCREENING 2006 COLORECTAL SCREENING 2011 Colorectal Cancer Screening 2011 FIT-DNA Q 3 years 2011 FIT/FOBT Q 1 year 2011 Flex Sig/CT Colonography Q 5 years 2011 ZOSTER VACCINE (1 of 2) 2016 INFLUENZA VACCINE (#1) 2024 [place] ([place]) Prev entative Visit/Annual Wellness Visit 10/20/[address] [facility] [id number] [facility] Care Teams Robotics Mechanic Relationship Specialty Start Date End Date Koki Vaughn MD [address] [place] [address] PCP - General Family Practice 02/05/24
--- OUTSIDE RECORDS SUMMARY | 2024-12-08 15:42 | XMS_ITS | Continuity of Care Document ---
Author Organization [facility] Address [address] [facility] [address] [place] [address] Phone Care Team Providers Care Stem Cleaning Machine Feeder Name Role Phone Eric Espinoza MD, FACS [...] Diagnoses Date Provider Providers Copied on Encounter Office/outpa tient Visit, [facility], [address] [place], [place] [address] [address], [place], [place], [address], [place] tel:[phone] SEC Maximus MARSHALL Professional a comprehensive exam (chief complaint) KERATOCONUS NOS 3 Alexis Reyes. [facility] [employer], [address], [place], [place], [address], [place]. tel:[phone] Referring Provider: Eric Fong, [facility] [address], [place], [address] . tel:[phone] [facility]pa [email or web address], [address] [place], [place] [address] [address], [place], [place], [address], [place] [phone] SEC [place] JOANNA Professional blurry vision (chief complaint) No Information 3 Alexis Eric. [facility] [employer], [address], [place], [place], [address], [place]. tel:[phone] [facility] [employer] [facility], [address] [place], [place] [address] [address], [place], [place], [address], [place] tel:[phone] SEC Maximus MARSHALL Professional a comprehensive exam (chief complaint) KERATOCONUS NOS 2 Alexis Reyes. [facility] [employer], [address], [place], [place], [address], [place]. tel:[phone] [facility], [address] [place], [place] [address] [employer] [address], [place], [place], [address], [place] tel:[phone] SEC Sp[place]geon JOANNA Professional No Information 2 Mariela Lentz. [address], [address], [place], [place], [address], [place]. tel:[phone] Family History Family Member Type Diagnosis Age At Onset No Information Payers Payer name Insurance type Covered green party ID Authoriza tion(s) Medicare [facility] [id number] Medicaid [facility] [id number] Social History Type Description Quantity Date Captured Comments Alcohol Use Details No Caffeine Use Details 2-3 Sodas per day 013 Tobacco Use Status No Information Smoking Status Never smoker Non-Smoking Tobacco Use Details : No Details Available : No Details Available Sex Female Chief Complaint And Reason For Visit From encounter dated '08/31/2013 09:15'. a comprehensive exam (chief complaint) Reason For Referral Reason For Referral No Information History Of Present Illness Encounter Date Complaint History Of Prese nt Illness No Information Functional Status Date Functional Assessmen t No Information Instructions Date Instruction Additional Infor matandrew - refer for collagen crosslinking, or 6 months complete Related to KERATOCONUS NOS KERATOCONUS NOS OU - Discussed dx with pt. Discussed Collagen crosslinking. Discussed referral to [facility] for Dr. Womack to evaluate for [...]
[2024-12-08 15:43] VITALS: BP 139/77; PULSE 88; RESP 22; TEMP 36.6; O2SAT 98
--- OUTSIDE RECORDS SUMMARY | 2024-12-08 15:43 | XMS_ITS | Clinical Summary ---
Author Organization [facility] Address [address] [place] [address] Phone Care Team Providers Care Integration Specialist Name Role Phone Koki Vaughn MD Primary Care Provider Allergies No known active allergies Medications budesonide-form oterol fumarate (SYMBICORT) 160-4.5 MCG/ACT Aerosol take 2 Puffs by inhalation 2 times daily. Active Fluticasone-Thom meterol (ADVAIR HFA) 230-21 MCG/ACT Aerosol take 2 Puffs by inhalation every 12 hours. Active montelukast (SINGULAIR) 10 MG Tablet Take 10 mg by mouth every evening. Active levalbuterol (XOPENEX HFA) 45 MCG/ACT Aerosol take 2 Puffs by inhalation every 6 hours as needed for Wheezing. Active Active Problems Problem Noted Date Diagnosed Date Asthma in adult without complication 01/07/2017 Asthma in adult without complication 11/16/2015 Asthma 09/05/2015 Uncomplicated asthma Uncomplicated severe persistent asthma Immunizations Immunization Administration Dates Next Due Pneumococcal Vaccine Adult - 23 Valent 5 Family History Medical History Relation Name Comments No Known Problems Brother Heart Disease Daughter No Known Problems Father No Known Problems Mother Relation Name Status Comments Brother Alive Daughter Alive Father Mother Alive Social History Tobacco [...] Sign Reading Time Taken Comments Blood Pressure 145/79 12/24/2023 2:55 PM FREELANCE PROGRAMMER/APP DEVELOPER Pulse 97 12/24/2023 2:55 PM FREELANCE PROGRAMMER/APP DEVELOPER Temperature 36.5 C (97.7 F) 12/24/2023 2:55 PM FREELANCE PROGRAMMER/APP DEVELOPER Respiratory Rate 16 12/24/2023 2:55 PM FREELANCE PROGRAMMER/APP DEVELOPER Oxygen Saturation 96% 12/24/2023 2:55 PM FREELANCE PROGRAMMER/APP DEVELOPER Inhaled Oxygen Concentration - - Weight 110.9 kg (244 lb 8 oz) 12/24/2023 2:55 PM FREELANCE PROGRAMMER/APP DEVELOPER Height 152.4 cm (5') 08/06/2018 1:55 PM CDT Body Mass Index 47.75 08/06/2018 1:55 PM CDT Plan of Treatment Health Maintenance Due Date Last Done Comments Hepatitis C Virus (HCV) Screening 1966 Hepatitis B Immunization (1 of 3 - 19+ 3-dose series) 1985 Colonoscopy 2011 Colorectal Cancer Screening 2011 Cologuard 2016 Immunochemical Fecal Occult Blood 2016 Mammogram 2016 Zoster Immunization (1 of 2) 2016 Pneumococcal Immunization (50+ years) (2 of 2 - PCV) 09/20/2016 09/20/2015 Influenza Immunization (#1) 06/20/202406/21, 08/10/2022, 08/06/2021, Additional history exists SARS-COV-2 Immunization ( season) 2024 07/22/2021, 06/30/2021 Respiratory Syncytial Virus (RSV) Immunization (Adult) (1 - 1-dose 75+ series) 2041 Pneumococcal Immunization Combined Discontinued 09/20/2015 DTaP/Tdap/Td Immunization Discontinued 11/05/2022 TdaP Immunization Completed 11/05/2022 Meningococcal Immunization (ACWY) Aged Out No longer eligible based on patient's age to complete this topic Rotavirus Immunization Aged Out No lo nger eligible based on patient's age to complete this topic Insurance MEDICAID [place] MED[place] C [employer] Care Teams Integration Specialist Relationship Specialty Start Date End Date Koki Vaughn MD PCP - General Family Medicine 09/06/20
--- OUTSIDE RECORDS SUMMARY | 2024-12-08 15:43 | XMS_ITS | Encounter Summary ---
Author Organization [facility] Address [address] [facility] [place] [address] Phone Care Team Providers Care Crew Member Name Role Phone Koki Vaughn MD Primary Care Provider Encounter Details Date Type Department Care Team (Late st Contact Info) Description 04/18/2021 Telephone [facility] Oncology Services [address] [place] [phone] Eli Soto [facility] Social History Tobacco Use Types Packs/Day Years [...] on file Sexual Orientation Not on file COVID-19 Exposure Response Date Recorded In the last month, have you been in contact with someone who was confirmed or suspected to have Coronavirus / COVID-19? No / Unsure 04/18/2021 10:14 AM CDT documented as of this encounter Miscellaneous Notes * Telephone Encounter - Eli Soto - 04/18/2021 10:27 AM CDT Spoke to Devendra in Gregory Culp's office stating that we needed a new script with a new authorizationfor her Xolair.?Auth expires on 04/23/21 and order was dated 05/16/20. documented in this encounter Plan of Treatment Not on file documented as of this encounter Visit Diagnoses Not on filedocumented in this encounter Care Teams Crew Member Relationship Specialty Start Date End Date Koki Vaughn MD PCP - General Family Medicine 09/06/20 documented as of this encounter
--- OUTSIDE RECORDS SUMMARY | 2024-12-08 15:43 | XMS_ITS | Encounter Summary ---
Author Organization [facility] Address [address] [place] [address] Care Team Providers Care Lumber Kiln Operator Name Role Phone Koki Vaughn MD Primary Care Provider Encounter Details Date Type Department Care Team (Late st Contact Info) Description 12/07/2024 External Device Data [facility] ABSTRACTION Provider, Abstract NO ADDRESS ON FILE Social History Tobacco Use Types Packs/Day Years Used Date Smoking Tobacco: Never Smokeless Tobacco: Never Alcohol Use Standard Drinks/Week Comments Never 0 (1 standard drink = 0.6 oz pur e alcohol) Comments Unknown Sex and Gender Information Value Date Recorded Sex Assigned at Not on file Legal Sex Female 8:58 AM CDT Gender Identity Not on file Sexual Orientation Not on file documented as of this encounter Plan of Treatment Upcoming Encounters Date Type Department Care Team (Late st Contact Info) Description 02/09/2025 11:45 AM CDT Office Visit [facility] Oncology and Hematology - [place] [address] [facility] [address] [place] [address] Bill Trejo MD [address] [facility] [address] [place] [address] documented as of this encounter Visit Diagnoses Not on filedocumented in this encounter Care Teams Lumber Kiln Operator Relationship Specialty Start Date End Date Koki Vaughn MD [address] [place] [address] [place] [address] PCP - General Family Practice 02/05/24 documented as of this encounter
--- OUTSIDE RECORDS SUMMARY | 2024-12-08 15:43 | XMS_ITS | Encounter Summary ---
Author Organization [facility] Address [address] [facility] [place] [address] Phone Care Team Providers Care Clean Rice Grader And Reel Tender Name Role Phone Koki Vaughn MD Primary Care Provider Encounter Details Date Type Department Care Team (Late st Contact Info) Description 12/07/2020 Telephone [facility] Oncology Services [address] [place] [phone] Aníbal Moser MD [address] [place] [address] Social History Tobacco Use Types Packs/Day Years [...] encounter Miscellaneous Notes * Telephone Encounter - Myrna Hampton - 12/07/2020 3:59 PM CST Unable to leave a voicemail informing the patient that we were able to schedule her appointment on her preferred date of 12/27 at 1:30. RVISOR LOOPING documented in this encounter Plan of Treatment Not on file documented as of this encounter Visit Diagnoses Not on filedocumented in this encounter Care Teams Clean Rice Grader And Reel Tender Relationship Specialty Start Date End Date Koki Vaughn MD PCP - General Family Medicine 09/06/20 documented as of this encounter
--- NOTE | 2024-12-08 15:55 | ECG_ITS ---
Test Date: 2024-12-08 16:09:09 Measurements Intervals Erving Rate: 106 P: 34 OR: 132 QRS: 91 QRSD: 96 T: 32 QT: 358 QTc: 477 Interpretive Statements SINUS TACHYCARDIA RIGHT AXIS DEVIATION DELAYED PRECORDIAL R/S TRANSITION BORDERLINE ST-T WAVE ABNORMALITY- INFERIOR LEADS BASELINE ARTIFACT- I, III, AVR, AVL, AVF ABNORMAL ECG No previous ECG available for comparison Electronically Signed On 12-08-2024 18:56:25 ADMISSION NURSE COORDINATOR by Pineda Nguyen D.O.
--- NOTE | 2024-12-08 15:56 | ED_ITS ---
HPI - SOB/Dyspnea General Chief Complaint: Shortness of Breath/Dyspnea Stated Complaint: sob Time Seen by Provider: 12/08/24 15:46 Source: patient and family Mode of arrival: ambulatory Limitations: no limitations History of Present Illness HPI Narrative: 59-year-old female with intellectual disability, iron deficiency anemia, hypertension, asthma, COPD presents to the ED with multiple weeks history of -- cough which is nonproductive. -- wheezing and shortness of breath no fever or chills. No nasal congestion/sore throat or ear pain no chest pain or palpitation Her symptoms have been present for weeks and had not been getting better which prompted her to come to the ED MD elicited complaint: shortness of breath, cough and asthma attack Pertinent past history: COPD and asthma Onset (ago): week(s) Severity: moderate Exacerbating factors: nothing Relieving factors: bronchodilators Known history of: COPD and asthma Associated symptoms: denies other symptoms, cough and wheezing Treatment prior to arrival: none Related Data Home oxygen amount: none Allergies Allergy/AdvReac Type Severity Reaction Status Date / Time No Known Allergies Allergy Verified 12/08/24 18:05 Review of Systems 2 Review of Systems: All systems reviewed & are unremarkable except as noted in HPI and below Constitutional: Constitutional: Reports as per HPI and Reports no additional constitutional complaints Eyes: Eyes: Reports as per HPI and Reports no additional eye complaints ENT: Reports system reviewed and no additional complaints, except as documented and Reports as per HPI Cardiovascular: Cardiovascular: Reports as per HPI and Reports no additional cardiovascular complaints Respiratory: Respiratory: Reports as per HPI, Reports chest congestion, Reports cough, Reports dyspnea and Reports wheezing Gastrointestinal: Gastrointestinal: Reports as per HPI and Reports no additional gastrointestinal complaints Genitourinary: Genitourinary: Reports no additional female genitourinary complaints and Reports as per HPI Musculoskeletal: Musculoskeletal: Reports no additional musculoskeletal complaints and Reports as per HPI Integumentary/Breasts: Skin/Breast: Reports system reviewed and no additional complaints, except as docu Neurologic: Reports system reviewed and no additional complaints, except as documented and Reports as per HPI Psychiatric: Psychiatric: Reports no additional psychiatric complaints and Reports as per HPI Endocrine: Endocrine: Reports no additional endocrine complaints and Reports as per HPI Hematologic/Lymphatic: Hematologic/Lymphatic: Reports no additional hematologic/lymphatic complaints and Reports as per HPI Allergic/Immunologic: Allergic/Immunologic: Reports no additional allergic/immunologic complaints and Reports as per HPI PMFSH Past Medical History Medical History Iron deficiency anemia Neuropathy of left foot Chronic obstructive pulmonary disease with (acute) exacerbation Body mass index [BMI] 45.0-49.9, adult (01/07/19) History of intellectual disability Asthma Allergic rhinitis, unspecified Essential (primary) hypertension Surgical History Surgical History H/O: hysterectomy (~2004) Hx of eye surgery (~2015) Right Family History Family History Sibling Asthma Social History Social History Social History: Caffeine-occasionally Smoking status: Never smoker Second hand tobacco smoke exposure: No Alcohol intake: never Substance use: never Substance use type: does not use Do You Feel Safe in your Home?: Yes Lack of Transportation: No Lack of Food: Never True Current Housing: I Have Housing Concerned About Future Housing: No Difficulty Paying Gas/Electric Bills: No Difficulty Paying for Meds: No Currently Unemployed: No Education: High School Diploma/GED Difficulty w/ Childcare or Family Care: No Living arrangements: with family Gender identity (if verbalized by the patient): Female Spiritual care concerns: No Exam 2 Narrative: within saturation of 98% on room air with a respiratory rate of 22. Blood pressure is stable. Const: General: no acute distress Orientation/consciousness: patient oriented x3 Limitations: no limitations HENMT: Head: normal to inspection Ears: external ears normal F alan/Nose/Sinus: Normal external nose present Face and sinus: normal facial exam Mouth: Yes Normal oral and palatal mucosa present Throat: posterior oropharynx normal Eyes: Conjunctivae: conjunctivae normal Pupils: Equal, round and reactive pupils present EOM: EOMs intact bilaterally Direct Ophthalmoscopy: no photophobia Neck: Neck: normal visual inspection, no lymphadenopathy and no meningeal signs Chest: Chest palpation & inspection: normal inspection of the chest Resp: Effort & Inspection: normal respiratory effort Auscultation: wheezes and diminished lung sounds Other: Pain with a respiratory rate of 22, heart rate of 88 . Able to speak in full sentences. Has accessory muscle use With prominent sternomastoid. Cardio: Rate: regular rate Rhythm: regular rhythm GI: GI Palp: Yes Soft to palpation Auscultation: normal bowel sounds O ther: no tenderness/ rigidity /rebound. : General: Yes no CVA tenderness Back/Spine/Pelvis: Back: no CVA tenderness Skin: General skin exam: normal color Rashes: no rashes Wounds: no wounds Neuro: General: patient oriented x3, moves all extremities, no meningeal signs, no focal motor deficits and CN's II-XI intact bilaterally Cranial nerves: Yes Nystagmus not present Speech: normal speech Extrem: General: normal to inspection and edema Psych: Mental Status: mental status grossly normal Affect: normal affect Attitude: cooperative Course Course Emergency Course: Asthma exacerbation/ RSV upper respiratory tract infection Chest x-ray revealed a prominent right hilum with hiatal hernia. Patient is due to get a CT of the chest with contrast. CT revealed --left axillary lymphadenopathy measuring 3.2 X 2.6 cm. -- Right upper lobe airspace opacities suggestive of pneumonia -- left lung nodules -- sliding hiatal hernia will treat with antibiotics Zithromax and have the patient follow-up with his primary care physician for further workup and referral to Oncology Vital Signs Vital signs: Vital Signs Temperature 36.6 C 12/08/24 15:43 Pulse Rate 88 12/08/24 15:43 Respiratory Rate 22 H 12/08/24 15:43 Blood Pressure 139/77 12/08/24 15:43 Pulse Oximetry 98 12/08/24 15:43 Oxygen Delivery Room Air 12/08/24 15:43 Temperature 36.6 C 12/08/24 15:43 Pulse Rate 88 12/08/24 15:43 Respiratory Rate 22 H 12/08/24 15:43 Blood Pressure 139/77 12/08/24 15:43 Pulse Oximetry 96 12/08/24 19:02 Oxygen Delivery Room Air 12/08/24 19:02 MDM - SOB/Dyspnea MDM Narrative Medical decision making narrative: asthma exacerbation right upper lobe pneumonia axillary lymphadenopathy sliding hiatal hernia RSV Differential Diagnosis Differential diagnosis: Likely asthma with exacerbation and pulmonary embolism Medical Records Attestation: I reviewed the patient's medical records. Lab Data Attestation: I reviewed the patient's lab results. 12/08/24 16:25 12/08/24 16:25 Labs: Lab Results 12/08/24 12/08/24 Range/Units 15:50 16:25 WBC 9.3 (4.8-10.8) K/mm3 RBC 4.08 L (4.20-5.40) M/mm3 Hgb 12.8 (12.0-15.0) g/dL Hct 39.5 (35.0-49.0) % MCV 96.8 (78.0-102.0) fL MCH 31.4 H (27.0-31.0) pg MCHC 32.4 (32-36) g/dL RDW 12.2 (11.6-14.4) % Plt Count 199 (150-420) K/mm3 MPV 10.9 (9.2-11.8) fl Immature Gran % (Auto) 0.3 H (0.0-0.0) % Neut % (Auto) 71.6 H (50.0-70.0) % Lymph % (Auto) 14.3 L (18.0-42.0) % [place] % (Auto) 12.0 H (2.0-11.0) % Eos % (Auto) 1.4 (1.0-6.0) % Baso % (Auto) 0.4 (0.0-1.0) % Lymph # (Auto) 1.32 (1.10-4.50) K/mm3 [place] # (Auto) 1.11 H (0.10-0.90) K/mm3 Eos # (Auto) 0.13 (0.02-0.50) K/mm3 Baso # (Auto) 0.04 (0.00-0.10) K/mm3 Abs Immat Gran (auto) 0.03 H (0.00-0.00) K/mm3 Absolute Neuts (auto) 6.63 (1.70-7.20) K/mm3 Absolute Nucleated RBC 0.00 (0.00-0.00) K/mm3 Nucleated RBC % 0.0 (0-0.0) % D-Dimer 0.26 (0.19-0.50) mg/L Sodium 139 (136-145) mmol/L Potassium 3.6 (3.5-5.1) mmol/L Chloride 99 (98-108) mmol/L Carbon Dioxide 34 H (21-32) mmol/L Anion Gap 6 (4-12) mmol/L BUN 22 H (7-18) mg/dL Creatinine 0.67 (0.55-1.02) mg/dL Estim Creat Clear Calc 87 ml/min Estimated GFR > 60 (59 - ) Glucose 124 H (70-99) mg/dL Calculated Osmolality 292 (285-295) mOsm/kg Lactic Acid 0.9 (0.4-2.0) mmol/L Calcium 8.9 (8.5-10.1) mg/dL Total Bilirubin 0.5 (0.00-1.00) mg/dL AST 21 (15-37) U/L ALT 23 (14-59) U/L Alkaline Phosphatase 90 (46-116) U/L Troponin I 6.8 (0.00-60.4) ng/L NT-Pro-B Natriuret Pep 146 H (0-125) pg/mL Total Protein 7.4 (6.4-8.2) g/dL Albumin 3.6 (3.4-5.0) g/dL Influenza A (RT-PCR) Negative (Negative) Influenza B (RT-PCR) Negative (Negative) RSV (RT-PCR) Positive A (Negative) SARS-CoV-2 RNA (RT-PCR) Negative (Negative) Imaging Data Attestation: I personally reviewed and interpreted this imaging study as follows: ECG Data EKG #1: ECG completion date: 12/08/24 ECG completion time: 16:09 Interpretation: sinus tachycardia with a heart rate of 106. Normal axis. No ST elevation. Discharge Plan Discharge Clinical Impression: Axillary lymphadenopathy, Multiple pulmonary nodules, Hiatal hernia Pneumonia Qualifiers: Pneumonia type: due to unspecified organism Laterality: right Lung location: u pper lobe of lung Qualified Code(s): J18.9 - Pneumonia, unspecified organism RSV infection Qualifiers: RSV infection type: unspecified Qualified Code(s): B33.8 - Other specified viral diseases Patient Disposition: Home, Self-Care Condition: Stable Instructions: Antibiotic Form, Asthma (ED), Lymphadenopathy (ED), Pulmonary Nodules (ED) Patient Language: Polish Prescriptions: New prednisone 20 mg tablet 20 mg PO BID Qty: 10 0RF azithromycin [Zithromax] 250 mg tablet 250 mg PO DAILY 4 Days Qty: 4 0RF Rx Instructions: start on day 2 of therapy No Action valsartan-hydrochlorothiazide 160-25 mg tablet 1 tablet PO DAILY Qty: 90 1RF albuterol sulfate 90 mcg/actuation HFA aerosol inhaler 1 - 2 inh inhalation Q4-6H PRN (Reason: shortness of breath or wheezing) Qty: 6.7 2RF Follow-up/Referrals: UNKNOWN,DOCTOR [Non-Staff] - Time of Disposition: 19:58
[2024-12-08] MEDS: methylPREDNISolone SOD SUCC 125 MG VIAL IM (16:12)
--- OUTSIDE RECORDS SUMMARY | 2024-12-08 16:21 | XMS_ITS | Encounter Summary ---
Author Organization [facility] Address [address] [facility] [place] [address] Phone Care Team Providers Care Tannery Worker Name Role Phone Koki Vaughn MD Primary Care Provider Encounter Details Date Type Department Care Team (Late st Contact Info) Description 04/18/2021 Telephone [facility] Oncology Services [address] [place] [phone] Eli Soto [facility] Social History Tobacco Use Types Packs/Day Years [...] on filedocumented in this encounter Care Teams Tannery Worker Relationship Specialty Start Date End Date Koki Vaughn MD PCP - General Family Medicine 09/06/20 documented as of this encounter
--- OUTSIDE RECORDS SUMMARY | 2024-12-08 16:21 | XMS_ITS | Encounter Summary ---
Author Organization [facility] Address [address] [place] [address] Care Team Providers Care Envelope Sealer Name Role Phone Koki Vaughn MD Primary [...] Description 02/09/2025 11:45 AM CDT Office Visit [facility] Oncology and Hematology - [place] [address] [facility] [address] [place] [address] Bill Trejo MD [address] [facility] [address] [place] [address] documented as of this encounter Visit Diagnoses Not on filedocumented in this encounter Care Teams Envelope Sealer Relationship Specialty Start Date End Date Koki Vaughn MD [address] [place] [address] [place] [address] PCP - General Family Practice 02/05/24 documented as of this encounter
--- OUTSIDE RECORDS SUMMARY | 2024-12-08 16:21 | XMS_ITS | Encounter Summary ---
Author Organization [facility] Address [address] [facility] [place] [address] Phone Care Team Providers Care Bakery Products Checker Name Role Phone Koki Vaughn MD Primary Care Provider Encounter Details Date Type Department Care Team (Late st Contact Info) Description 12/07/2020 Telephone [facility] Oncology Services [address] [place] [phone] Aníbal Moser MD [address] [place] [address] Social History Tobacco Use Types Packs/Day Years [...] her preferred date of 12/27 at 1:30. AL SAW OPERATOR documented in this encounter Plan of Treatment Not on file documented as of this encounter Visit Diagnoses Not on filedocumented in this encounter Care Teams Bakery Products Checker Relationship Specialty Start Date End Date Koki Vaughn MD PCP - General Family Medicine 09/06/20 documented as of this encounter
--- OUTSIDE RECORDS SUMMARY | 2024-12-08 16:21 | XMS_ITS | Continuity of Care Document ---
Author Organization [facility] Address [address] [facility] [address] [place] [address] Phone Care Team Providers Care Synthetic Department Supervisor Name Role Phone Eric Espinoza MD, FACS [...] Copied on Encounter Office/outpa tient Visit, [facility], [address] [place], [place] [address] [address], [place], [place], [id number], [place] tel:[phone] SEC Maximus MARSHALL Professional a comprehensive exam (chief complaint) KERATOCONUS NOS 3 Alexis Reyes. [facility] [employer], [address], [place], [place], [address], [place]. tel:[phone] Referring Provider: Eric Fong, [facility] [employer] [address], [place], [address] . tel:[phone] Office/outpa tient Visit, [facility], [address] [place], [place] [address] [address], [place], [place], [address], [place] [phone] SEC [place] JOANNA Professional blurry vision (chief complaint) No Information 3 Alexis Eric. [facility] [employer], [address], [place], [place], [address], [place]. tel:[phone] [facility] [employer] [facility], [address] [place], [place] [address] [address], [place], [place], [address], [place] tel:[phone] SEC Maximus MARSHALL Professional a comprehensive exam (chief complaint) KERATOCONUS NOS 2 Alexis Reyes. [facility] [employer], [address], [place], [place], [address], [place]. tel:[phone] [facility], [address] [place], [place] [address], [place], [place], [address], [place] tel:[phone] SEC [place] JOANNA Professional No Information 2 Mariela Lentz. [address], [address], [place], [place], [address], [place]. tel:[phone] Family History Family Member Type Diagnosis Age At Onset No Information Payers Payer name Insurance type Covered constitution party ID Authoriza tion(s) Medicare [facility] [id number] Medicaid [facility] [id number] Social History Type Description Quantity Date Captured [...] Collagen crosslinking. Discussed referral to [facility] for Dr. Womack to evaluate for FDA [...]
--- OUTSIDE RECORDS SUMMARY | 2024-12-08 16:21 | XMS_ITS | Clinical Summary ---
Author Organization [facility] Bernard adams [facility] Address [address] [facility] [place] [address] Care Team Providers Care Sales Clerk Name Role Phone Koki Vaughn MD Primary [...] 02/09/2025 11:45 AM CDT Office Visit [facility] Oncology and Hematology - [place] [address] [facility] [address] [place] [address] Bill Trejo MD [address] [facility] [address] [place] [address] Health Maintenance Due Date Last [...] Visit/Annual Wellness Visit 10/20/2024 Insurance MEDICAID [place] [facility] [id number] [facility] Care Teams Sales Clerk Relationship Specialty Start Date End Date Koki Vaughn MD [address] [facility] [place] [address] PCP - General Family Practice 02/05/24
--- OUTSIDE RECORDS SUMMARY | 2024-12-08 16:21 | XMS_ITS | Clinical Summary ---
Author Organization [facility] Address [address] [place] [address] Phone Care Team Providers Care Net Making Supervisor Name Role Phone Koki Vaughn MD Primary [...] Comments Blood Pressure 145/79 12/24/2023 2:55 PM GEAR TESTER Pulse 97 12/24/2023 2:55 PM GEAR TESTER Temperature 36.5 C (97.7 F) 12/24/2023 2:55 PM GEAR TESTER Respiratory Rate 16 12/24/2023 2:55 PM GEAR TESTER Oxygen Saturation 96% 12/24/2023 2:55 PM GEAR TESTER Inhaled Oxygen Concentration - - Weight 110.9 kg (244 lb 8 oz) 12/24/2023 2:55 PM GEAR TESTER Height 152.4 cm (5') 08/06/2018 1:55 PM [...] age to complete this topic Insurance [place]ID [place] MED[place]ARE C [employer] Care Teams Net Making Supervisor Relationship Specialty Start Date End Date Koki Vaughn MD PCP - General Family Medicine 09/06/20
--- OUTSIDE RECORDS SUMMARY | 2024-12-08 16:21 | XMS_ITS | Encounter Summary ---
Author Organization [facility] Address [address] [facility] [place] [address] Phone Care Team Providers Care Ice Guard Skating Rink Name Role Phone Koki Vaughn MD Primary Care Provider Encounter Details Date Type Department Care Team (Late st Contact Info) Description 06/11/2022 Telephone [facility] Oncology Services [address] [place] [phone] Eli Soto [place] Social History Tobacco Use Types Packs/Day Years [...] for the Xolair. Faxed to Gregory Culp MR TEACHER office stating that we needed new order/auth in place before we could schedule her. She called back today andtold her that we were still waiting on the order/auth, would contact her when we had everything. documented in this encounter Plan of Treatment Not on file documented as of this encounter Visit Diagnoses Not on filedocumented in this encounter Care Teams Ice Guard Skating Rink Relationship Specialty Start Date End Date Koki Vaughn MD PCP - General Family Medicine 09/06/20 documented as of this encounter
--- OUTSIDE RECORDS SUMMARY | 2024-12-08 16:21 | XMS_ITS | Continuity of Care Document ---
Author Organization [facility] Address [address] [place] [address] [address] [place] [address] Phone Care Team Providers Care Dross Skimmer Name Role Phone Martha MEJIA MD, Riaz Unavailable Unavailable Procedures Procedure Date OFFICE/OUTPATIENT VISIT, [facility] Advance Directives Directive Yes / No Effective Date File Name No Information Encounters Encounter Description Practice Location Reason(s) For Visit Diagnoses Date Provider Providers Copied on Encounter OFFICE/OUTPA TIENT VISIT, [facility] Ophthalmology [facility], [id number] [place] [address] [address], [place], [place], [id number], tel:[phone] [address] [place] [address] [facility] No Information 3 Martha Mello. [address] [facility], [address], [place], [place], [address] , [place]. [phone] Referring Provider: Riaz Thomas MD P, [address] [facility] [address], [place], [place], [address]. tel:[phone] Family History Family Member Type Diagnosis Age At Onset No Information Payers Payer name Insurance type Covered libertarian ID Authoriza tion(s) No Information Social History [...]
[2024-12-08 16:29] LABS: Basophils Absolute Auto 0.04 K/mm3 (0.00-0.10); Basophils Percent Auto 0.4 % (0.0-1.0); Eosinophils Absolute Auto 0.13 K/mm3 (0.02-0.50); Eosinophils Percent Auto 1.4 % (1.0-6.0); Hematocrit 39.5 % (35.0-49.0); Hemoglobin 12.8 g/dL (12.0-15.0); Immature Granulocyte Absolute 0.03 K/mm3 (0.00-0.00); Immature Granulocyte Percent A 0.3 % (0.0-0.0); Lymphocytes Absolute Auto 1.32 K/mm3 (1.10-4.50); Lymphocytes Percent Auto 14.3 % (18.0-42.0); Mean Corpuscular HGB Conc 32.4 g/dL (32-36); Mean Corpuscular Hemoglobin 31.4 pg (27.0-31.0); Mean Corpuscular Volume 96.8 fL (78.0-102.0); Mean Platelet Volume 10.9 fl (9.2-11.8); Monocytes Absolute Auto 1.11 K/mm3 (0.10-0.90); Neutrophils Absolute Auto 6.63 K/mm3 (1.70-7.20); Neutrophils Percent Auto 71.6 % (50.0-70.0); Platelet Count Result 199 K/mm3 (150-420); Red Blood Count 4.08 M/mm3 (4.20-5.40); Red Cell Distribution Width 12.2 % (11.6-14.4); White Blood Count 9.3 K/mm3 (4.8-10.8)
[2024-12-08 16:31] LABS: Influenza A QL RT-PCR Negative (Negative); Influenza B QL RT-PCR Negative (Negative); RSV RNA, RT-PCR Positive (Negative); SARS-CoV-2 RNA PCR Negative (Negative)
[2024-12-08 16:43] LABS: D Dimer 0.26 mg/L (0.19-0.50)
[2024-12-08 16:47] LABS: Troponin I 6.8 ng/L (0.00-60.4)
[2024-12-08 16:48] LABS: Lactic Acid Reflex 0.9 mmol/L (0.4-2.0)
[2024-12-08 16:55] LABS: Alanine Aminotransferase 23 U/L (14-59); Albumin Level 3.6 g/dL (3.4-5.0); Alkaline Phosphatase 90 U/L (46-116); Anion Gap 6 mmol/L (4-12); Aspartate Amino Transferase 21 U/L (15-37); Bilirubin,Total 0.5 mg/dL (0.00-1.00); Blood Urea Nitrogen 22 mg/dL (7-18); Calcium 8.9 mg/dL (8.5-10.1); Carbon Dioxide 34 mmol/L (21-32); Chloride 99 mmol/L (98-108); Estimated CRCL calculation 87 ml/min; Estimated Glomerular Filt Rate > 60; Glucose 124 mg/dL (70-99); NT Pro B Type Natriuretic Pept 146 pg/mL (0-125); Osmolality Calculated 292 mOsm/kg (285-295); Potassium 3.6 mmol/L (3.5-5.1); Sodium 139 mmol/L (136-145); Total Protein 7.4 g/dL (6.4-8.2)
[2024-12-08 19:02] VITALS: O2SAT 96
--- NOTE | 2024-12-08 19:24 | PC.NURSE ---
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 patient returned to dept from imaging. RN monitoring. call light within reach.
[2024-12-08] MEDS: LACTATED RINGERS 500 ML 999 ML IV CONT (19:57)
[2024-12-08] MEDS: AZITHROMYCIN 250 MG TABLET 500 MG PO (19:57)
--- NOTE | 2024-12-08 21:27 | PC.NURSE ---
patient ambulatory to bathroom at this time.
[2024-12-08 21:43] VITALS: BP 147/91; PULSE 97; RESP 18; TEMP 36.4; O2SAT 93
--- NOTE | 2024-12-10 14:00 | PC.NURSE ---
preliminary blood cultures x2 reviewed. no growth to date.
== END 2024-12-08 21:50 | disposition home or self-care (01) ==
PROVIDERS: Emergency Provider Internal Medicine Critical Care Medicine; PCP Family Medicine
DX: J18.9 Pneumonia, unspecified organism (principal); B33.8 Other specified viral diseases; R59.0 Localized enlarged lymph nodes; R91.8 Other nonspecific abnormal finding of lung field; K44.9 Diaphragmatic hernia without obstruction or gangrene; I10 Essential (primary) hypertension; J44.9 Chronic obstructive pulmonary disease, unspecified; Z20.822 Contact with and (suspected) exposure to COVID-19
CPT/HCPCS: 36415; 71045; 71260; 80053; 83605; 83880; 84484; 85025; 85380; 87040; 87637; 93005; 96365; 96372; 99284; A9270; J0696; J2919; J7120; Q9967

== ENCOUNTER 2024-12-31 10:01 | Outpatient (CLI) | payer MEDICARE, MEDICAID, SELFPAY ==
--- NOTE | ~2024-12-31 | US_ITS ---
EXAMINATION: US biopsy lymph node DATE: 12/31/2024 12:35 INDICATION: Pathologically enlarged and morphologically suspicious lymph nodes within the left axilla and left retropectoral region. TECHNIQUE: The procedure including the risks, benefits, and alternatives was discussed with the patie nt. Risks discussed included bleeding and infection. The patient understood the risks and agreed to proceed. The skin overlying the left anterior lateral chest wall was prepped and draped in usual sterile fashi on. Anesthetic was administered with 1% lidocaine subcutaneously. A 13 gauge introducer was advanced directly into the lymph node in question and the inner cannula rem jared. A 14-gauge biopsy device was then utilized to obtain multiple core biopsies, both for RPMI and formal in under continuous sonographic guidance. The 14-gauge biopsy device was then removed and a BUTTERFLY hydromarker was placed through the 13-gau ge introducer. A Gelfoam slurry was utilized for hemostasis. All devices and introducers were removed. The entry site was cleaned and dressed with Steri-Strips followed by a sterile gauze and Tegaderm. There were no immediate complications. FINDINGS: Ultrasound images demonstrate the core biopsy device in the pathologically enlarged and mor phologically suspicious lymph node. IMPRESSION: 1. Technically successful ultrasound-guided core biopsy of a morphologically suspicious pathologicall y enlarged lymph node with marker placement, as detailed above. Reviewed, dictated and finalized at location A. IMPRESSION: 1. Technically successful ultrasound-guided core biopsy of a morphologically gibson spicious pathologically enlarged lymph node with marker placement, as detailed above.
--- OUTSIDE RECORDS SUMMARY | 2024-12-31 10:41 | XMS_ITS | Continuity of Care Document ---
Author Organization [facility] Address [address] [facility] [address] [place] [address] Phone Care Team Providers Care Director Of Collections Name Role Phone Eric Espinoza MD, FACS [...] Copied on Encounter Office/outpa tient Visit, Est [facility], [address] [place], [place] [address], [place], [place], [address], [place] tel:[phone] SEC Maximus MARSHALL Professional a comprehensive exam (chief complaint) KERATOCONUS NOS 3 Alexis Reyes. [facility] [employer], [address], [place], [place], [address], [place]. tel:[phone] Referring Provider: Eric Fong, [facility] [employer] [address], [place], [address] . tel:[phone] [facility]pa [facility]ient [facility], [facility], [address] [place], [place] [address] [address], [place], [place], [address], [place] [phone] SEC [place] JOANNA Professional blurry vision (chief complaint) No Information 3 Alexis Eric. [facility] [employer], [address], [place], [place], [address], [place]. tel:[phone] [facility], [address] [place], [place] [address] [address], [place], [place], [address], [place] tel:[phone] SEC Maximus MARSHALL Professional a comprehensive exam (chief complaint) KERATOCONUS NOS 2 Alexis Reyes. [facility] [employer], [address], [place], [place], [address], [place]. tel:[phone] [facility], [address] [place], [place] [address] [address], [place], [place], [address], [place] tel:[phone] SEC [place] JOANNA Professional No Information 2 Mariela Lentz. [address], [address], [place], [place], [address], [place]. tel:[phone] Family History Family Member Type Diagnosis Age At Onset No Information Payers Payer name Insurance type Covered constitution party ID Authoriza tion(s) Medicare [facility] [id number] Medicaid [facility] [id number] Social History Type Description Quantity Date Captured [...] pt. Discussed Collagen crosslinking. Discussed referral to [facility] for Dr. Womack to evaluate [...]
--- OUTSIDE RECORDS SUMMARY | 2024-12-31 10:41 | XMS_ITS | Encounter Summary ---
Author Organization [facility] Address [address] [place] [address] Care Team Providers Care Open Hearth Door Liner Name Role Phone Koki Vaughn MD Primary Care Provider Encounter Details Date Type Department Care Team (Late st Contact Info) Description 12/28/2024 External Device Data STL ABSTRACTION Provider, Abstract [...] Care Team (Late st Contact Info) Description 01/10/2025 4:30 PM CDT Telephone Check Up [facility] Oncology and Hematology - Isak [address] [place] [address] [place] [address] [place] [address] [employer] [address] [place] [phone] 04/18/2025 10:15 AM CDT Office Visit [facility] Oncology and Hematology - Isak [address] [place] [address] Bill Trejo MD [address] [place] [phone] documented as of this encounter Visit Diagnoses Not on filedocumented in this encounter Care Teams Open Hearth Door Liner Relationship Specialty Start Date End Date Koki Vaughn MD [address] [facility] [address] [facility] [place] [address] PCP - General Family Practice 02/05/24 documented as of this encounter
--- OUTSIDE RECORDS SUMMARY | 2024-12-31 10:41 | XMS_ITS | Clinical Summary ---
Author Organization [facility] Bernard adams [facility] Address [address] [place] [address] Care Team Providers Care Senior Solutions Workflow Consultant Name Role Phone Koki Vaughn MD Primary [...] by inhalation 2 times daily. 4 Active predniSONE (DELTASONE) 20 mg tablet Take 1 Tablet by mouth 2 times daily. 5 Active azithromycin (ZITHROMAX) 250 mg tablet Take 250 mg by mouth daily. 5 Active Active Problems No known active problems Encounters Date Type Department Care Team Description 12/28/2024 External Device Data STL ABSTRACTION Provider, Abstract 12/28/2024 External Device Data STL ABSTRACTION Provider, Abstract 12/25/2024 External Device Data STL ABSTRACTION Provider, Abstract 12/24/2024 External Device Data STL ABSTRACTION Provider, Abstract 12/21/2024 External Device Data STL ABSTRACTION Provider, Abstract 12/16/2024 8:45 AM DIVINE HEALER Office Visit [facility] Oncology and Hematology - Isak [address] [place] [address] Bill Trejo MD Chronic anemia (Primary Dx); Axillary lymphadenopathy 12/07/2024 External Device Data STL ABSTRACTION Provider, [...] Sign Reading Time Taken Comments Blood Pressure 112/74 12/16/2024 8:55 AM DIVINE HEALER Pulse 110 12/16/2024 8:55 AM DIVINE HEALER Temperature 36.2 C (97.1 F) 12/16/2024 8:55 AM DIVINE HEALER Respiratory Rate 15 12/16/2024 8:55 AM DIVINE HEALER Oxygen Saturation 90% 12/16/2024 8:55 AM DIVINE HEALER Inhaled Oxygen Concentration - - Weight 108.3 kg (238 lb 12.8 oz) 12/16/2024 8:55 AM DIVINE HEALER Height 154.9 cm (5' 1 ) 02/12/2024 3:03 PM CDT Body Mass Index 45.12 02/12/2024 3:03 PM CDT Plan of Treatment Upcoming Encounters Date Type Department Care Team (Late st Contact Info) Description 01/10/2025 4:30 PM CDT Telephone Check Up [facility] Oncology and Hematology - Isak [address] [place] [phone] Bill Trejo MD [address] [place] [address] 04/18/2025 10:15 AM CDT Office Visit [facility] Oncology and Hematology - Esmond [address] [facility] [address] [place] [address] Bill Trejo MD [address] [facility] [address] [place] [address] Health Maintenance Due Date Last Done Comments [...] Visit/Annual Wellness Visit 10/20/2024 Insurance MEDICAID [place] [facility] [id number] [facility] Care Teams Senior Solutions Workflow Consultant Relationship Specialty Start Date End Date Koki Vaughn MD [employer] [facility] [place] [address] PCP - General Family Practice 02/05/24
--- OUTSIDE RECORDS SUMMARY | 2024-12-31 10:41 | XMS_ITS | Encounter Summary ---
Author Organization [facility] Address [address] [facility] [place] [address] Phone Care Team Providers Care Label Designer Name Role Phone Koki Vaughn MD Primary Care Provider Encounter Details Date Type Department Care Team (Late st Contact Info) Description 06/11/2022 Telephone [facility] Oncology Services [address] [place] [phone] Eli Soto [place] Social History Tobacco Use Types Packs/Day Years [...] for the Xolair. Faxed to Gregory Culp INDEPENDENT VIDEO PRODUCER office stating that we needed new order/auth in place before we could schedule her. She called back today andtold her that we were still waiting on the order/auth, would contact her when we had everything. documented in this encounter Plan of Treatment Not on file documented as of this encounter Visit Diagnoses Not on filedocumented in this encounter Care Teams Label Designer Relationship Specialty Start Date End Date Koki Vaughn MD PCP - General Family Medicine 09/06/20 documented as of this encounter
--- OUTSIDE RECORDS SUMMARY | 2024-12-31 10:42 | XMS_ITS | Clinical Summary ---
Author Organization [facility] Address [address] [place] [address] Phone Care Team Providers Care Medication Coordinator Name Role Phone Koki Vaughn MD Primary [...] Comments Blood Pressure 145/79 12/24/2023 2:55 PM TRANSFORMER ASSEMBLER Pulse 97 12/24/2023 2:55 PM TRANSFORMER ASSEMBLER Temperature 36.5 C (97.7 F) 12/24/2023 2:55 PM TRANSFORMER ASSEMBLER Respiratory Rate 16 12/24/2023 2:55 PM TRANSFORMER ASSEMBLER Oxygen Saturation 96% 12/24/2023 2:55 PM TRANSFORMER ASSEMBLER Inhaled Oxygen Concentration - - Weight 110.9 kg (244 lb 8 oz) 12/24/2023 2:55 PM TRANSFORMER ASSEMBLER Height 152.4 cm (5') 08/06/2018 1:55 PM CDT Body Mass Index 47.75 08/06/2018 1:55 PM CDT Plan of Treatment Health Maintenance Due Date Last Done Comments Hepatitis C Virus (HCV) Screening 1966 Mammogram 1966 Hepatitis B Immunization (1 of 3 - 19+ 3-dose series) 1985 Pap Smear 1987 Cervical Cancer Screening (CCS) 1996 HPV/Cotest 1996 Colonoscopy 2011 Colorectal Cancer Screening 2011 Cologuard 2016 Immunochemical Fecal Occult Blood 2016 Zoster Immunization (1 of 2) 2016 Pneumococcal Immunization (50+ years) (2 of 2 - PCV) 09/20/2016 09/20/2015 Influenza Immunization (#1) 06/20/202406/21, 08/10/2022, 08/06/2021, Additional history exists SARS-COV-2 Immunization ( - 2023- season) 2024 07/22/2021, 06/30/2021 Respiratory Syncytial Virus (RSV) Immunization (Adult) (1 - 1-dose 75+ series) 2041 Pneumococcal Immunization Combined Discontinued 09/20/2015 DTaP/Tdap/Td Immunization Discontinued 11/05/2022 TdaP Immunization Completed 11/05/2022 Meningococcal Immunization (ACWY) Aged Out No longer eligible based on patient's age to complete this topic Rotavirus Immunization Aged Out No lo nger eligible based on patient's age to complete this topic Insurance MEDICAID [place] MEDICARE C [employer]ET[employer] Care Teams Medication Coordinator Relationship Specialty Start Date End Date Koki Vaughn MD PCP - General Family Medicine 09/06/20
--- OUTSIDE RECORDS SUMMARY | 2024-12-31 10:42 | XMS_ITS | Continuity of Care Document ---
Author Organization [facility] Address [address] [place] [address] [address] [place] [address] Phone Care Team Providers Care Booking Manager Name Role Phone Martha MEJIA MD, Riaz Unavailable Unavailable Procedures Procedure Date OFFICE/OUTPATIENT VISIT, [facility] Advance Directives Directive Yes / No Effective Date File Name No Information Encounters Encounter Description Practice Location Reason(s) For Visit Diagnoses Date Provider Providers Copied on Encounter OFFICE/OUTPA TIENT VISIT, [facility], [address] [place] [address] [address], [place], [place], [address], tel:[phone] [address] [place] [address] [facility] No Information 3 Martha Mello. [address] [facility], [address], [place], [place], [address] , [place]. [phone] Referring Provider: Riaz Thomas MD P, [address] [facility] [address], [place], [place], [address]. tel:[phone] Family History Family Member Type Diagnosis Age [...]
--- OUTSIDE RECORDS SUMMARY | 2024-12-31 10:42 | XMS_ITS | Encounter Summary ---
Author Organization [facility] Address [address] [facility] [place] [address] Phone Care Team Providers Care Brick Kiln Worker Name Role Phone Koki Vaughn MD Primary Care Provider Encounter Details Date Type Department Care Team (Late st Contact Info) Description 12/07/2020 Telephone [facility] Oncology Services [address] [place] [phone] Aníbal Moser MD [address] [place] [address] Social History Tobacco Use Types Packs/Day Years [...] her preferred date of 12/27 at 1:30. EDITOR documented in this encounter Plan of Treatment Not on file documented as of this encounter Visit Diagnoses Not on filedocumented in this encounter Care Teams Brick Kiln Worker Relationship Specialty Start Date End Date Koki Vaughn MD PCP - General Family Medicine 09/06/20 documented as of this encounter
--- OUTSIDE RECORDS SUMMARY | 2024-12-31 10:42 | XMS_ITS | Encounter Summary ---
Author Organization [facility] Address [address] [facility] [place] [address] Phone Care Team Providers Care Journeyman Lineman Name Role Phone Koki Vaughn MD Primary Care Provider Encounter Details Date Type Department Care Team (Late st Contact Info) Description 04/18/2021 Telephone [facility] Oncology Services [address] [place] [phone] Eli Soto [facility] Social History Tobacco Use Types Packs/Day [...] on filedocumented in this encounter Care Teams Journeyman Lineman Relationship Specialty Start Date End Date Koki Vaughn MD PCP - General Family Medicine 09/06/20 documented as of this encounter
== END 2024-12-31 10:02 | disposition home or self-care (01) ==
LOC: ANHIMG 10:02
PROVIDERS: PCP Family Medicine; Visit Provider Internal Medicine Hematology & Oncology
DX: R59.0 Localized enlarged lymph nodes (principal)
CPT/HCPCS: 38505; 76942; 88184; 88305; 88341; 88342; 88365

== ENCOUNTER 2025-01-27 10:12 | Outpatient (CLI) | payer MEDICARE, MEDICAID, SELFPAY ==
--- NOTE | ~2025-01-27 | PE_ITS ---
EXAMINATION: PET skull to mid thigh DATE: 01/27/2025 12:47 INDICATION: B-cell lymphoma TECHNIQUE: Blood glucose level was 94 mg/dL. 10.719 mCi of 18-fluorodeoxyglucose (18-FDG) was adminis tered i.v. Low dose computed tomography (CT) images were acquired from the base of the brain to the p roximal thighs for attenuation correction and anatomic localization. Positron emission tomography (PE T) images were acquired in the same distribution beginning 59 minutes after injection. Images includi ng fused PET/CT images were reconstructed in axial, coronal, and sagittal planes. Automated exposure control technique was employed. The dose-length product was 69976.44mGy-cm. COMPARISON: None FINDINGS: Head/neck: There is symmetric increased activity in the oral cavity, palatine tonsils, laryngeal muscles and ocu lar muscles without CT correlate, likely physiologic. No pathologically enlarged cervical lymphadenop athy or suspicious foci of increased FDG uptake in the visualized head or neck. Chest: Calcified left upper lobe pulmonary nodule with calcified left hilar lymph nodes consistent with old granulomatous disease. Mild discoid atelectasis in the lingula and right middle lobe. No other suspic ious pulmonary nodules, pneumonia, pulmonary edema or pleural effusion. Heart size is normal. Small o f atherosclerotic coronary artery calcification. No pericardial effusion. Moderate-sized sliding-type hiatal hernia. Thoracic aorta is normal in caliber. Multiple enlarged and FDG avid left axillary lym ph nodes the largest measuring 3.2 x 2.7 cm with maximal SUV of 8.0 consistent with provided history of lymphoma. No other pathologically enlarged thoracic lymphadenopathy. There is likely degenerative mild uptake at multiple bilateral costovertebral articulations and along the left anterior aspect of multiple vertebral bodies without evident associated lytic or blastic bone lesions. Abdomen/pelvis/proximal thighs: Physiologic renal accumulation and excretion of FDG activity in the kidneys, bladder and along portio ns of ureters. Normal degree and heterogenous pattern of increased uptake throughout the liver withou t radiologic correlate or dominant FDG avid lesion. The gallbladder, pancreas, spleen and bilateral a drenal glands are normal. Mild uptake scattered throughout the bowels without radiologic correlate, a lso likely physiologic. Normal appendix. No other abnormal foci of increased FDG uptake or pathologic ally enlarged lymphadenopathy in the abdomen, pelvis or proximal thighs. Grade 1 anterolisthesis L4 o n L5 with severe associated disc height loss. Severe bilateral lower lumbar facet osteoarthritis. No suspicious lytic, blastic or abnormally FDG avid bone lesions. IMPRESSION: 1. Moderate increased FDG uptake such with several enlarged left axillary lymph nodes consistent with reported history of lymphoma. No other pathologically enlarged or FDG avid lymph nodes in the neck, chest, abdomen or pelvis. No other lesions suspicious for primary malignancy or metastatic disease. 2. Moderate-sized sliding-type hiatal hernia. Reviewed, dictated and finalized at location B. IMPRESSION: 1. Moderate increased FDG uptake such with several enlarged left axillary lymph nodes consistent with reported history of lymphoma. No other pathologically en larged or FDG avid lymph nodes in the neck, chest, abdomen or pelvis. No other lesions suspicious for primary malignancy or metastatic disease. 2. Moderate-sized sliding-type hiatal hernia.
--- OUTSIDE RECORDS SUMMARY | 2025-01-27 10:53 | XMS_ITS | Continuity of Care Document ---
Author Organization [facility] Address [address] [facility] [address] [place] [address] Phone Care Team Providers Care Stunt Double Name Role Phone Eric Espinoza MD, FACS [...] Copied on Encounter Office/outpa tient Visit, Est [facility], [address] [place], [place] [address] [address], [place], [place], [address], [place] tel:[phone] SEC Maximus MARSHALL Professional a comprehensive exam (chief complaint) KERATOCONUS NOS 3 Alexis Reyes. [facility], [address], [place], [place], [address], [place]. tel:[phone] Referring Provider: Eric Fong, [facility] [address], [place], [address] . tel:[phone] [facility]pa [facility]ient [facility], [facility], [address] [place], [place] [address] [address], [place], [place], [address], [place] [phone] SEC [place] JOANNA Professional blurry vision (chief complaint) No Information 3 Alexis Eric. [facility], [address], [place], [place], [address], [place]. tel:[phone] [facility], [address] [place], [place] [address] [address], [place], [place], [address], [place] tel:[phone] SEC Maximus MARSHALL Professional a comprehensive exam (chief complaint) KERATOCONUS NOS 2 Alexis Reyes. [facility], [address], [place], [place], [address], [place]. tel:[phone] [facility], [address] [place], [place] [address], [place], [place], [address], [place] tel:[phone] SEC [place] JOANNA Professional No Information 2 Mariela Lentz. [address], [address], [place], [place], [address], [place]. tel:[phone] Family History Family Member Type Diagnosis Age At Onset No Information Payers Payer name Insurance type Covered constitution party ID Authoriza tion(s) Medicare [facility] [id number] Medicaid [facility] [id number] Social History Type Description Quantity Date Captured [...] pt. Discussed Collagen crosslinking. Discussed referral to [facility] for Dr. Womack to evaluate for [...]
--- OUTSIDE RECORDS SUMMARY | 2025-01-27 10:53 | XMS_ITS | Encounter Summary ---
Author Organization [facility] Address [address] [facility] [place] [address] Phone Care Team Providers Care Real Estate Agency Principal Name Role Phone Koki Vaughn MD Primary Care Provider Encounter Details Date Type Department Care Team (Late st Contact Info) Description 04/18/2021 Telephone [facility] Oncology Services [address] [place] [phone] Eli Soto [facility] Social History Tobacco Use Types Packs/Day [...] on filedocumented in this encounter Care Teams Real Estate Agency Principal Relationship Specialty Start Date End Date Koki Vaughn MD PCP - General Family Medicine 09/06/20 documented as of this encounter
--- OUTSIDE RECORDS SUMMARY | 2025-01-27 10:53 | XMS_ITS | Encounter Summary ---
Author Organization [facility] Address [address] [facility] [place] [address] Phone Care Team Providers Care Biometric Technician Name Role Phone Koki Vaughn MD Primary Care Provider Encounter Details Date Type Department Care Team (Late st Contact Info) Description 06/11/2022 Telephone [facility] Oncology Services [address] [place] [phone] Eli Soto [place] Social History Tobacco Use Types Packs/Day Years [...] for the Xolair. Faxed to Gregory Culp CUSHION MAKER HAND office stating that we needed new order/auth in place before we could schedule her. She called back today andtold her that we were still waiting on the order/auth, would contact her when we had everything. documented in this encounter Plan of Treatment Not on file documented as of this encounter Visit Diagnoses Not on filedocumented in this encounter Care Teams Biometric Technician Relationship Specialty Start Date End Date Koki Vaughn MD PCP - General Family Medicine 09/06/20 documented as of this encounter
--- OUTSIDE RECORDS SUMMARY | 2025-01-27 10:53 | XMS_ITS | Encounter Summary ---
Author Organization [facility] Address [address] [facility] [place] [address] Care Team Providers Care Soda Flaker Name Role Phone Unavailable Primary Care Provider Unavailabl e Encounter Details Date Type Department Care Team (Late st Contact Info) Description 01/04/2025 Lab Requisition [facility] - Pathology Lab [address] [place] [address] Jalil España MD [address] [address] Illness, unspecified Social History Tobacco Use Types Packs/Day Years Used Date Smoking Tobacco: Never Assessed Sex and Gender Information Value Date Recorded Sex Assigned at Not on file Gender Identity Not on file Sexual Orientation Not on file documented as of this encounter Plan of Treatment Not on file documented as of this encounter Procedures Procedure Name Priority Date/Time Associated Diagnosis Comments PATHOLOGY TISSUE Routine 12/31/2024 12:0 7 PM CDT Illness, unspecified documented in this encounter Results * PATHOLOGY TISSUE (12/31/2024 12:07 PM CDT) Case Report Surgical Pathology Report Case: [id number] Authorizing Provider: Jalil España MD Collected: 12/31/2024 12:07 PM Ordering Location: [facility] - Received: 01/04/2025 02:53 PM Pathology Lab Pathologist: Paulina Love MD Specimen: Lymph Node Biopsy 01/06/2025 9:41 AM CDT [facility] Final Diagnosis Lymph node, left anterior lateral chest, needle core biopsy: - Atypical large B-cell infiltrate - See description 01/06/2025 9:41 AM CDT [facility] Microscopic Description and Comment Sections show cores of lymph node tissue with a vaguely nodular architecture. No significant germinal center formation is noted. The majority of cells are small, mature lymphocytes. There are scattered large cells with prominent nucleoli identified. No fibrosis, necrosis, or significant inflammatory cellular infiltrates are noted. To further evaluate the immunoarchitecture and the large cell infiltrate, immunohistochemistry studies and in situ hybridization are performed on the tissue with appropriately reactive controls. The large cells show expression of CD30, CD20 (weak to normal), PAX-5 (weak to normal), CD79a (weak), MUM-1, OCT-2, and KARTHIK.1. CD15 is weakly positive in a rare large cell but otherwise highlights admixed granulocytes. CD20 and CD3 show a mix of B-cells and T-cells. CD21 shows numerous follicular dendritic cell meshworks. In situ hybridization for Joshua-Graf virus is negative. Per report, flow cytometry shows no monoclonal B-cell population but reports an increased CD4:CD8 ratio of 7.9:1 along with increased CD4/CD57 expression by the T-cells. Overall, the lymph node as sampled is remarkable for atypical large B-cells. 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 Excisional biopsy of a lesional lymph node is recommended for further classification of this process. 01/06/2025 9:41 AM [facility] Clinical History 59 year old woman with axillary adenopathy. 01/06/2025 9:41 AM [facility] Pathologist Location at [facility] 01/06/2025 9:41 AM [facility] Disclaimer The performance characteristics of all immunohistochemical and indirect immunofluorescence stains (if any) cited in this report were determined by the Histopathology Laboratory of [facility]. Some of these tests were developed by our own laboratory and have not been cleared or approved by the US Food and Drug Administration. The FDA does not require this test to go through premarket FDA review. These tests are used for clinical purposes. They should not be regarded as investigational or for research. This laboratory is certified under the Clinical Laboratory Improvement Amendments (CLIA) as qualified to perform high complexity clinical laboratory testing. This case has been personally reviewed and interpreted by the attending (teaching) pathologist. 01/06/2025 9:41 AM CDT [facility] Embedded Images 01/06/2025 9:41 AM CDT [facility] Pathology/Cytolo gy BIOPSY OF LYMPH NODE / Unknown 12/31/2024 12:07 PM CDT 01/04/2025 2:53 PM CDT Jalil España MD LAB - PATHOLOGY/CYTO LOGY ORDERABLES [facility] [address] [phone] documented in this encounter Visit Diagnoses Diagnosis Illness, unspecified documented in this encounter
--- OUTSIDE RECORDS SUMMARY | 2025-01-27 10:53 | XMS_ITS | Continuity of Care Document ---
Author Organization [facility] Address [id number] [place] [address] [address] [place] [address] Phone Care Team Providers Care Guard Supervisor Name Role Phone Martha MEJIA MD, Riaz Unavailable Unavailable Procedures Procedure Date OFFICE/OUTPATIENT VISIT, [facility] Advance Directives Directive Yes / No Effective Date File Name No Information Encounters Encounter Description Practice Location Reason(s) For Visit Diagnoses Date Provider Providers Copied on Encounter OFFICE/OUTPA TIENT VISIT, [facility], [address], [place], [place], [id number], tel:[phone] [facility] No Information 3 Martha Mello. [address], [address], [place], [place], [id number] , [place]. tel:[phone] Referring Provider: Riaz Thomas MD P, [address], [place], [address] . tel:[phone] Family History Family Member Type Diagnosis Age At Onset No Information Payers Payer name Insurance type Covered alliance party ID Authoriza tion(s) No Information Social [...]
--- OUTSIDE RECORDS SUMMARY | 2025-01-27 10:53 | XMS_ITS | Clinical Summary ---
Author Organization [facility] Address [address] [place] [address] Care Team Providers Care Motorboat Mechanic Inboard/Outboard Name Role Phone Unavailable Primary Care Provider Unavailabl e Source Comments [facility],non-owned Affiliates and Associated Physician Practices is amultiple site organization consisting of ambulatory clinics and hospital sitesin [place], [place] and [place]. This disclosure is being madepursuant to the Care Everywhere program and may not contain all information available regarding this patient. Last updated 18.[facility] Velteo Encounters Date Type Department Care Team Description 01/04/2025 Lab Requisition [facility] - Pathology Lab [address] [place] [address] Jalil España MD Illness, unspecified from Last 3 Months Social History Tobacco Use Types Packs/Day Years Used Date Smoking Tobacco: Never Assessed Sex and Gender Information Value Date Recorded Sex Assigned at Not on file Gender Identity Not on file Sexual Orientation Not on file Plan of Treatment Health Maintenance Due Date Last Done Comments COLOGUARD (AGES 45-75) - COL ON CA SCREENING 1966 COLON MONITORING 1966 COLONOSCOPY - COLON CA SCREENING 1966 CT COLONOGRAPHY - COLON CA SCREENING 1966 Colorectal Cancer Screening 1966 FIT - COLON CA SCREENING 1966 FLEX SIG - COLON CA SCREENING 1966 LIPID TESTING 1966 MAMMOGRAM 1966 PAP SMEAR 1966 HIV SCREENING 1981 HEPATITIS C SCREENING 07/04/1984 DTAP/TDAP/TD VACCINES (1 - Tdap) 1985 HEPATITIS B VACCINE (1 of 3 - 19+ 3-dose series) 1985 PNEUMOCOCCAL VACCINE 50+ (1 of 1 - PCV) 2016 ZOSTER VACCINE (1 of 2) 2016 COVID-19 VACCINE (2023-2 5 season) 2024 DEPRESSION SCREENING 10/20/2024 MEDICARE AWV CALENDAR YEAR 2024 INFLUENZA VACCINE (Season Ended) 2025 HIB VACCINE Aged Out No longer eligi ble based on patient's age to complete this topic HPV VACCINE Aged Out No longer eligi ble based on patient's age to complete this topic MENINGOCOCCAL (Group B) VACC INE SHARED DECISION-MAKING Aged Out No longer eligibl e based on patient's age to complete this topic MENINGOCOCCAL GROUPS A/C/Y/W VACCINE Aged Out No longer eligible b ased on patient's age to complete this topic Procedures Procedure Name Priority Date/Time Associated Diagnosis Comments PATHOLOGY TISSUE Routine 12/31/2024 12:0 7 PM CDT Illness, unspecified from Last 3 Months Results * PATHOLOGY TISSUE (12/31/2024 12:07 PM CDT) Case Report Surgical Pathology Report Case: [id number] Authorizing Provider: Jalil España MD Collected: 12/31/2024 12:07 PM Ordering Location: [facility] - Received: 01/04/2025 02:53 PM Pathology Lab Pathologist: Paulina Love MD Specimen: Lymph Node Biopsy 01/06/2025 9:41 AM CDT [facility] PATHOLOGY LAB Final Diagnosis Lymph node, left anterior lateral chest, needle core biopsy: - Atypical large B-cell infiltrate - See description 01/06/2025 9:41 AM CDT [facility] PATHOLOGY LAB Microscopic Description and Comment Sections [...] classification of this process. 01/06/2025 9:41 AM [facility] PATHOLOGY LAB Clinical History 59 year old woman with axillary adenopathy. 01/06/2025 9:41 AM [facility] PATHOLOGY LAB Pathologist Location at [facility] 01/06/2025 9:41 AM [facility] PATHOLOGY LAB Disclaimer The performance characteristics of all immunohistochemical and indirect immunofluorescence stains (if any) cited in this report were determined by the [facility]opathology [facility] of [facility]. Some of these tests were developed by [...] the attending (teaching) pathologist. 01/06/2025 9:41 AM [facility] PATHOLOGY LAB Embedded Images 01/06/2025 9:41 AM [facility] PATHOLOGY LAB Pathology/Cytolo gy BIOPSY OF LYMPH NODE / Unknown 12/31/2024 12:07 PM CDT 01/04/2025 2:53 PM CDT Jalil España MD LAB - PATHOLOGY/CYTO LOGY ORDERABLES [facility] [address] [facility] [place] [address], [facility] [phone] from Last 3 Months Insurance Payer Benefit Plan / Group Subscriber ID Effective Dates Phone Address Type AETNA MEDICARE ADV AETNA MEDICARE ADV HMO/PPO/PFFS [id number] Effective for all dates [address] [place] [address] Medicare-Man aged Care [place] [id number] Effective for all dates [address] [address] [place] [address] Medicaid [place] SELF PAY NO INSURANCE SELF PAY NO INSURANCE Effective for all dates [place], [place] Self Pay AETNA MEDICARE ADV AETNA MEDICARE ADV HMO/PPO/PFFS [id number] Effective for all dates [address] [place] [address] Medicare-Man aged Care [place] Effective for all dates [address] [address] [place] [address] [place] AET[place] MEDICARE ADV AETNA MEDICARE ADV HMO/PPO/PFFS [id number] Effective for all dates [address] [place] [address] Medicare-[facility] Care [place]ICAID [place] Effective for all dates [address] [address] [place] [address] [place] AET[place] MEDICARE ADV AETNA MEDICARE ADV HMO/PPO/PFFS [id number] Effective for all dates [address] [place] [address] Medicare-[place] aged Care [place] Effective for all dates [address] [address] [place] [address] [place] AET[place] MEDICARE ADV AETNA MEDICARE ADV HMO/PPO/PFFS [id number] Effective for all dates [address] [place] [address] Medicare-Man aged Care [place] Effective for all dates [address] [address] [place] [address] Medicaid [place]
--- OUTSIDE RECORDS SUMMARY | 2025-01-27 10:53 | XMS_ITS | Encounter Summary ---
Author Organization [facility] [employer] [facility] Address [address] [place] [address] Care Team Providers Care Heavy Truck Driver Name Role Phone Koki Vaughn MD Primary Care Provider Reason for Visit * Reason Onset Date Comments PET Scan Appt. 01/13/2025 Spoke w/ patient s daughter to provide PET Scan Appt info Encounter Details Date Type Department Care Team (Late st Contact Info) Description 01/13/2025 Telephone [facility] Oncology [facility] Hematology [place] [address] [place] [address] Bill Trejo MD [facility] [email or web address] [address] [place] [phone] PET Scan Appt. (Spoke w/ patients daughter to provide PET Scan Appt info) Social History Tobacco Use Types Packs/Day Years [...] Care Team (Late st Contact Info) Description 02/03/2025 10:00 AM CDT Office Visit [facility] Oncology [facility] Hematology [place] [address] [place] [address] Bill Trejo MD [email or web address] [place] [address] 04/18/2025 10:15 AM CDT Office Visit [facility] Oncology and Hematology - [place] [address] [facility] [address] [place] [address] Bill Trejo MD [address] [facility] [address] [place] [address] documented as of this encounter Visit Diagnoses Not on filedocumented in this encounter Care Teams Heavy Truck Driver Relationship Specialty Start Date End Date Koki Vaughn MD [address] [facility] [place] [address] PCP - General Family Practice 02/05/24 documented as of this encounter
--- OUTSIDE RECORDS SUMMARY | 2025-01-27 10:53 | XMS_ITS | Encounter Summary ---
Author Organization [facility] Address [address] [facility] [facility] [place] [address] Phone Care Team Providers Care Agents' Records Clerk Name Role Phone Koki Vaughn MD Primary Care Provider Encounter Details Date Type Department Care Team (Late st Contact Info) Description 12/07/2020 Telephone [facility] Oncology Services [address] [place] [phone] Aníbal Moser MD [address] [place] [address] Social History Tobacco Use Types Packs/Day Years [...] her preferred date of 12/27 at 1:30. ER SERVICES OFFICER documented in this encounter Plan of Treatment Not on file documented as of this encounter Visit Diagnoses Not on filedocumented in this encounter Care Teams Agents' Records Clerk Relationship Specialty Start Date End Date Koki Vaughn MD PCP - General Family Medicine 09/06/20 documented as of this encounter
--- OUTSIDE RECORDS SUMMARY | 2025-01-27 10:53 | XMS_ITS | Clinical Summary ---
Author Organization [facility] Address [address] [place] [address] Phone Care Team Providers Care Head Inspector Name Role Phone Koki Vaughn MD Primary [...] Comments Blood Pressure 145/79 12/24/2023 2:55 PM WIRE WINDING MACHINE OPERATOR Pulse 97 12/24/2023 2:55 PM WIRE WINDING MACHINE OPERATOR Temperature 36.5 C (97.7 F) 12/24/2023 2:55 PM WIRE WINDING MACHINE OPERATOR Respiratory Rate 16 12/24/2023 2:55 PM WIRE WINDING MACHINE OPERATOR Oxygen Saturation 96% 12/24/2023 2:55 PM WIRE WINDING MACHINE OPERATOR Inhaled Oxygen Concentration - - Weight 110.9 kg (244 lb 8 oz) 12/24/2023 2:55 PM WIRE WINDING MACHINE OPERATOR Height 152.4 cm (5') 08/06/2018 1:55 PM [...] age to complete this topic Insurance MEDICAID [place] MEDICARE C AETNA Care Teams Head Inspector Relationship Specialty Start Date End Date Koki Vaughn MD PCP - General Family Medicine 09/06/20
--- OUTSIDE RECORDS SUMMARY | 2025-01-27 10:53 | XMS_ITS | Clinical Summary ---
Author Organization [facility] Bernard adams [facility] Address [address] [place] [address] Care Team Providers Care Inflated Pad Buffer Name Role Phone Koki Vaughn MD Primary [...] Encounters Date Type Department Care Team Description 01/13/2025 Telephone [facility] Oncology and Hematology - [place] [address] [facility] [place] [address] Bill Trejo MD PET Scan Appt. (Spoke w/ patients daughter to provide PET Scan Appt info) 01/11/2025 3:45 PM CDT Telephone Check Up [facility] Oncology and Hematology [facility] [address] [place] [address] Bill Trejo MD B-cell lymphoma, unspecified B-cell lymphoma type, unspecified body region (CMS/HCC) (Primary Dx) 01/06/2025 Orders Only [facility] Oncology and Hematology [facility] [address] [place] [address] Bill Trejo MD 01/05/2025 External Device Data STL ABSTRACTION Provider, Abstract 12/28/2024 External Device Data STL ABSTRACTION Provider, Abstract 12/28/2024 External Device Data STL ABSTRACTION Provider, Abstract 12/25/2024 External Device Data STL ABSTRACTION Provider, Abstract 12/24/2024 External Device Data STL ABSTRACTION Provider, Abstract 12/21/2024 External Device Data STL ABSTRACTION Provider, Abstract 12/16/2024 8:45 AM MANAGER MISSION Office Visit [facility] Oncology and Hematology [facility] [address] [place] [address] Bill Trejo MD Chronic anemia (Primary Dx); [...] Comments Blood Pressure 112/74 12/16/2024 8:55 AM MANAGER MISSION Pulse 110 12/16/2024 8:55 AM MANAGER MISSION Temperature 36.2 C (97.1 F) 12/16/2024 8:55 AM MANAGER MISSION Respiratory Rate 15 12/16/2024 8:55 AM MANAGER MISSION Oxygen Saturation 90% 12/16/2024 8:55 AM MANAGER MISSION Inhaled Oxygen Concentration - - Weight 108.3 kg (238 lb 12.8 oz) 12/16/2024 8:55 AM MANAGER MISSION Height 154.9 cm (5' 1 ) 02/12/2024 3:03 PM CDT Body Mass Index 45.12 02/12/2024 3:03 PM CDT Plan of Treatment Upcoming Encounters Date Type Department Care Team (Late st Contact Info) Description 02/03/2025 10:00 AM CDT Office Visit [facility] Oncology and Hematology [place] [address] [place] [address] [place] [address] [place] [address] [employer] [address] [place] [phone] 04/18/2025 10:15 AM CDT Office Visit [facility] Oncology and Hematology [address] [place] [address] [place] [address] [place] [address] [employer] [address] [place] [phone] Health Maintenance Due Date Last Done Comments Pre-Diabetes and Diabetes Screening 1966 DTAP/TDAP/TD VACCINES (1 - Tdap) 1985 HEPATITIS B VACCINES (1 of 3 - 19+ 3-dose series) 06/21 HPV/Cotest (21-29) 1987 CERVICAL CANCER SCREENING 1996 HPV/Cotest (30-65) 1996 PAP SMEAR 1996 BREAST CANCER SCREENING 2006 COLORECTAL SCREENING 2011 Colorectal Cancer Screening 2011 FIT-DNA Q 3 years 2011 FIT/FOBT Q 1 year 2011 Flex Sig/CT Colonography Q 5 years 2011 ZOSTER VACCINE (1 of 2) 2016 INFLUENZA VACCINE (#1) 2024 [place]) Prev entative Visit/Annual Wellness Visit 10/20/2024 Procedures Procedure Name Priority Date/Time Associated Diagnosis Comments PATHOLOGY Routine 12/31/2024 12:38 PM CDT from Last 3 Months Results * PATHOLOGY (12/31/2024 12:38 PM CDT) Tissue us Bill Trejo MD PATHOLOGY/CYTOLOGY ORDERABLES F inal Result from Last 3 Months Insurance MEDICAID [place] [facility] [id number] [facility] Care Teams Inflated Pad Buffer Relationship Specialty Start Date End Date Koki Vaughn MD [address] [facility] [place] [address] PCP - General Family Practice 02/05/24
[2025-01-27 11:16] LABS: Glucose Point of Care 94 mg/dl (65-105)
== END 2025-01-27 10:13 | disposition home or self-care (01) ==
PROVIDERS: PCP Family Medicine; Visit Provider Internal Medicine Hematology & Oncology
DX: C83.32 Diffuse large B-cell lymphoma, intrathoracic lymph nodes (principal); K44.9 Diaphragmatic hernia without obstruction or gangrene
CPT/HCPCS: 78815; A9552

== ENCOUNTER 2025-02-22 08:12 | Outpatient (CLI) | payer MEDICARE, MEDICAID, SELFPAY ==
--- OUTSIDE RECORDS SUMMARY | 2025-02-22 08:23 | XMS_ITS | Encounter Summary ---
Author Organization [facility] Address [address] [facility] [place] [address] Phone Care Team Providers Care Sales Representative Advertising Name Role Phone Koki Vaughn MD Primary Care Provider Encounter Details Date Type Department Care Team (Late st Contact Info) Description 04/18/2021 Telephone [facility] Oncology Services [address] [place] [phone] Eli Soto [facility] Social History Tobacco Use Types Packs/Day [...] on filedocumented in this encounter Care Teams Sales Representative Advertising Relationship Specialty Start Date End Date Koki Vaughn MD PCP - General Family Medicine 09/06/20 documented as of this encounter
--- OUTSIDE RECORDS SUMMARY | 2025-02-22 08:23 | XMS_ITS | Continuity of Care Document ---
Author Organization [facility] Address [address] [facility] [address] [place] [address] Phone Care Team Providers Care Camp Nurse Name Role Phone Eric Espinoza MD, FACS [...] Copied on Encounter Office/outpat ient Visit, Est [facility], [address] [place] [address] [employer] [address], [place], [place], [address], [place] tel:[phone] SEC Maximus MARSHALL Professional KERATOCONUS NOS 3 Alexis Eric. [address], [address], [place], [place], [address], [place]. tel:[phone] Referring Provider: Eric Fong, [facility] [address], [place], [address] . tel:[phone] [facility]pat [facility], [address] [place] [employer] [address], [place], [place], [address], [place] tel:[phone] SEC Maximus MARSHALL Professional No Information 3 Alexis Eric. [address], [address], [place], [place], [address], [place]. tel:[phone] [facility], [address], [place], [place], [address], [place] tel:[phone] SEC Maximus MARSHALL Professional KERATOCONUS NOS 2 Alexis Reyes. [facility] [address], [address], [place], [place], [address], [place]. tel:[phone] [facility], [address] [place] [employer] [address], [place], [place], [address], [place] tel:[phone] SEC Maximus MARSHALL Professional No Information 2 Joeyfinesse Lentz. [address] [facility], [address], [place], [place], [address], [place]. tel:[phone] Family History Family Member Type Diagnosis Age At Onset No Information Payers Payer name Insurance type Covered democrat ID Authoriza tion(s) Medicare [facility] [id number] Medicaid [facility] [id number] Social History Type Description Quantity Date Captured [...] Collagen crosslinking. Discussed referral to [facility] for Dr. Womack to evaluate for [...]
--- OUTSIDE RECORDS SUMMARY | 2025-02-22 08:23 | XMS_ITS | Encounter Summary ---
Author Organization [facility] Address [address] [facility] [place] [address] Phone Care Team Providers Care Supervisor Backfilling Name Role Phone Koki Vaughn MD Primary Care Provider Encounter Details Date Type Department Care Team (Late st Contact Info) Description 12/07/2020 Telephone [facility] Oncology Services [address] [place] [phone] Aníbal Moser MD [address] [place] [address] Social History Tobacco Use Types Packs/Day Years [...] her preferred date of 12/27 at 1:30. ANICAL INTEGRITY SPECIALIST documented in this encounter Plan of Treatment Not on file documented as of this encounter Visit Diagnoses Not on filedocumented in this encounter Care Teams Supervisor Backfilling Relationship Specialty Start Date End Date Koki Vaughn MD PCP - General Family Medicine 09/06/20 documented as of this encounter
--- OUTSIDE RECORDS SUMMARY | 2025-02-22 08:23 | XMS_ITS | Continuity of Care Document ---
Author Organization [facility] Address [address] [place] [address] [address] [place] [address] Phone Care Team Providers Care Cotton Bag Clipper Name Role Phone Martha MEJIA MD, Riaz Unavailable Unavailable Procedures Procedure Date OFFICE/OUTPATIENT VISIT, [facility] Advance Directives Directive Yes / No Effective Date File Name No Information Encounters Encounter Description Practice Location Reason(s) For Visit Diagnoses Date Provider Providers Copied on Encounter OFFICE/OUTPA TIENT VISIT, [facility], [address] [facility] [address], [place], [place], [address], tel:[phone] [facility] No Information 3 Martha Mello. [address], [address], [place], [place], [address] , [place]. tel:[phone] Referring Provider: Riaz Thomas MD P, [address], [place], [address] . tel:[phone] Family History Family Member Type Diagnosis Age [...]
--- OUTSIDE RECORDS SUMMARY | 2025-02-22 08:23 | XMS_ITS | Encounter Summary ---
Author Organization [facility] [employer] [facility] Address [address] [place] [address] Care Team Providers Care Assembler Fitter Name Role Phone Koki Vaughn MD Primary Care Provider Reason for Visit * Reason Onset Date Comments PET Scan Appt. 01/13/2025 Spoke w/ patient s daughter to provide PET Scan Appt info Encounter Details Date Type Department Care Team (Late st Contact Info) Description 01/13/2025 Telephone [facility] Oncology [facility] Hematology [place] [address] [address] [place] [address] Bill Trejo MD [facility] [address] [place] [address] PET Scan Appt. (Spoke w/ patients [...] Care Team (Late st Contact Info) Description 03/02/2025 1:00 PM CDT Office Visit [facility] Oncology [facility] Hematology Isak Dez [address] [place] [address] Bill Trejo MD [address] [place] [address] 04/18/2025 10:15 AM CDT Office Visit [facility] Oncology and Hematology - [place] [address] [facility] [address] [place] [address] Bill Trejo MD [address] [facility] [address] [place] [address] documented as of this encounter Visit Diagnoses Not on filedocumented in this encounter Care Teams Assembler Fitter Relationship Specialty Start Date End Date Koki Vaughn MD [address] [facility] [address] PCP - General Family Practice 02/05/24 documented as of this encounter
--- OUTSIDE RECORDS SUMMARY | 2025-02-22 08:23 | XMS_ITS | Clinical Summary ---
Author Organization [facility] Address [address] [place] [address] Phone Care Team Providers Care Filtration Supervisor Name Role Phone Koki Vaughn MD [...] Comments Blood Pressure 145/79 12/24/2023 2:55 PM DEVELOPMENT TEAM LEAD Pulse 97 12/24/2023 2:55 PM DEVELOPMENT TEAM LEAD Temperature 36.5 C (97.7 F) 12/24/2023 2:55 PM DEVELOPMENT TEAM LEAD Respiratory Rate 16 12/24/2023 2:55 PM DEVELOPMENT TEAM LEAD Oxygen Saturation 96% 12/24/2023 2:55 PM DEVELOPMENT TEAM LEAD Inhaled Oxygen Concentration - - Weight 110.9 kg (244 lb 8 oz) 12/24/2023 2:55 PM DEVELOPMENT TEAM LEAD Height 152.4 cm (5') 08/06/2018 1:55 PM [...] age to complete this topic Insurance MEDICAID [place] MEDICARE C AETNA Care Teams Filtration Supervisor Relationship Specialty Start Date End Date Koki Vaughn MD PCP - General Family Medicine 09/06/20
--- OUTSIDE RECORDS SUMMARY | 2025-02-22 08:23 | XMS_ITS | Encounter Summary ---
Author Organization [facility] Address [address] [facility] [place] [address] Care Team Providers Care Stunner And Shackler Name Role Phone Unavailable Primary Care Provider Unavailabl e Encounter Details Date Type Department Care Team (Late st Contact Info) Description 01/04/2025 Lab Requisition [facility] - Pathology Lab [address] [place] [address] Jalil España MD [address] [address] Illness, unspecified Social History Tobacco Use Types Packs/Day Years Used Date Smoking Tobacco: Never Assessed Comments Unknown Sex and Gender Information Value Date Recorded Sex Assigned at Not on file Legal Sex Female 7:18 PM AIR MARSHAL Gender Identity Not on file Sexual Orientation Not on file documented as of this encounter Plan of Treatment Not on file documented as of this encounter Procedures Procedure Name Priority Date/Time Associated Diagnosis Comments PATHOLOGY TISSUE Routine 12/31/2024 12:0 7 PM CDT Illness, unspecified documented in this encounter Results * PATHOLOGY TISSUE (12/31/2024 12:07 PM CDT) Case Report Surgical Pathology Report Case: [id number] Authorizing Provider: Jalil España MD Collected: 12/31/2024 12:07 PM Ordering Location: [facility] - Received: 01/04/2025 02:53 PM Pathology Lab Pathologist: Paulina Love MD Specimen: Lymph Node Biopsy 01/06/2025 9:41 AM CDT [facility] Final Diagnosis Lymph node, left anterior lateral chest, needle core biopsy: - Atypical large B-cell infiltrate - See description 01/06/2025 9:41 AM [facility] PATH[facility] Microscopic Description and Comment Sections [...] classification of this process. 01/06/2025 9:41 AM [facility] Clinical History 59 year old woman with axillary adenopathy. 01/06/2025 9:41 AM [facility] Pathologist Location at [facility] 01/06/2025 9:41 AM [facility] PATH[facility] Disclaimer The performance characteristics of all immunohistochemical and indirect immunofluorescence stains (if any) cited in this report were determined by the Histopathology Laboratory of [facility]. Some of these tests were [...] attending (teaching) pathologist. 01/06/2025 9:41 AM CDT [facility] PATHOLOGY LAB Embedded Images 01/06/2025 9:41 AM CDT [facility] PATHOLOGY LAB Pathology/Cytolo gy BIOPSY OF LYMPH NODE / Unknown 12/31/2024 12:07 PM CDT 01/04/2025 2:53 PM CDT us Jalil España MD LAB - PATHOLOGY/CYTOLOGY ORDERAB LES Final Result [facility] PATHOLOGY LAB [address] [place] [address], [facility] [phone] documented in this encounter Visit Diagnoses Diagnosis Illness, unspecified documented in this encounter
--- OUTSIDE RECORDS SUMMARY | 2025-02-22 08:23 | XMS_ITS | Clinical Summary ---
Author Organization [facility] Address [address] [facility] [place] [address] Care Team Providers Care Clinical Researcher Name Role Phone Unavailable Primary Care Provider Unavailabl e Source Comments [facility],non-owned Affiliates and Associated Physician Practices is amultiple site organization consisting of ambulatory clinics and hospital sitesin [place], [place], [place] and [place]. This disclosure is being madepursuant to the Care Everywhere program and may not contain all information available regarding this patient. Last updated 18.[facility] Lexara Encounters Date Type Department Care Team Description 01/04/2025 Lab Requisition [facility] - Pathology Lab [address] [place] [address] Jalil España MD Illness, unspecified from Last 3 Months Social History Tobacco Use Types Packs/Day Years Used Date Smoking Tobacco: Never Assessed Comments Unknown Sex and Gender Information Value Date Recorded Sex Assigned at Not on file Legal Sex Female 7:18 PM OPTICAL SCIENTIST Gender Identity Not on file Sexual Orientation [...] VACCINE (1 of 2) 2016 COVID-19 VACCINE (1 - 2023-2 5 season) 2024 DEPRESSION SCREENING 10/20/2024 MEDICARE [...] CDT) Case Report Surgical Pathology Report Case: [id number] Authorizing Provider: Jalil España MD Collected: 12/31/2024 12:07 PM Ordering Location: [facility] - Received: 01/04/2025 02:53 PM Pathology Lab Pathologist: Paulina Love MD Specimen: Lymph Node Biopsy 01/06/2025 9:41 AM CDT [facility] PATHOLOG[facility] LAB Final Diagnosis Lymph node, left anterior lateral chest, needle core biopsy: - Atypical large B-cell infiltrate - See description 01/06/2025 9:41 AM CDT [facility] PATHOLOGY LAB Microscopic Description and Comment Sections [...] classification of this process. 01/06/2025 9:[address] [facility] PATHOLOGY LAB Clinical History 59 year old woman with axillary adenopathy. 01/06/2025 9:[address] [facility] PATHOLOG[facility] LAB Pathologist Location at [facility] 01/06/2025 9:[address] [facility] PATHOLOGY LAB Disclaimer The performance characteristics of all immunohistochemical and indirect immunofluorescence stains (if any) cited in this report were determined by the Histopathology Laboratory of [facility]. Some of these tests were developed [...] the attending (teaching) pathologist. 01/06/2025 9:[address] [facility] PATHOLOGY LAB Embedded Images 01/06/2025 9:[address] [facility] PATHOLOG[facility] LAB Pathology/Cytolo gy BIOPSY OF LYMPH NODE / Unknown 12/31/2024 12:07 PM CDT 01/04/2025 2:53 PM CDT us Jalil España MD LAB - PATHOLOGY/CYTOLOGY ORDERAB LES Final Result [facility] PATHOLOGY LAB [address] [place] [address], [facility] [phone] from Last 3 Months Insurance MEDICAID - [place] AETNA MEDICARE [facility] SELF PAY NO INSURANCE Member Subscriber Plan / Payer (Ef fective for All Dates) Name:Vandana Avila Member ID:Not on file Relation to Subscriber:Not on file Name:VANDANA AVILA Subscriber ID:Not on file (Home) Address: [address] [place] [address] Payer ID:Not on file Group ID:Not on file Type:Self Pay Address: [place], [place] AETNA MEDICARE [place] * Guarantor: VANDANA AVILA Account Type Relation to Patient Date of Phone Billing Address Personal/Family Spouse [address] [address] AETNA MEDICARE [place] AETNA MEDICARE [place] AET[place] MEDICARE [place]
--- OUTSIDE RECORDS SUMMARY | 2025-02-22 08:23 | XMS_ITS | Encounter Summary ---
Author Organization [facility] Address [address] [facility] [place] [address] Phone Care Team Providers Care Archaeologist Name Role Phone Koki Vaughn MD Primary Care Provider Encounter Details Date Type Department Care Team (Late st Contact Info) Description 06/11/2022 Telephone [facility] Oncology Services [address] [place] [address] Eli Soto [place] Social History Tobacco Use Types Packs/Day Years [...] for the Xolair. Faxed to Gregory Culp [facility] office stating that we needed new order/auth in place before we could schedule her. She called back today andtold her that we were still waiting on the order/auth, would contact her when we had everything. documented in this encounter Plan of Treatment Not on file documented as of this encounter Visit Diagnoses Not on filedocumented in this encounter Care Teams Archaeologist Relationship Specialty Start Date End Date Koki Vaughn MD PCP - General Family Medicine 09/06/20 documented as of this encounter
--- OUTSIDE RECORDS SUMMARY | 2025-02-22 08:23 | XMS_ITS | Clinical Summary ---
Author Organization [facility] Bernard adams Brenden Address [address] [place] [address] Care Team Providers Care Manager Building Name Role Phone Koki Vaughn MD Primary [...] Encounters Date Type Department Care Team Description 02/09/2025 Abstract [facility] Oncology and Hematology - [place] [address] [place] [address] Bill Trejo MD 02/09/2025 Abstract [facility] Oncology and Hematology [place] [address] [place] [address] Bill Trejo MD 02/03/2025 10:00 AM CDT Office Visit [facility] Oncology [facility] Hematology [facility] [address] [place] [address] Bill Trejo MD Axillary lymphadenopathy (Primary Dx) 01/28/2025 Orders Only [facility] Oncology and Hematology [facility] [address] [place] [address] Bill Trejo MD 01/13/2025 Telephone [facility] Oncology and Hematology [facility] [address] [place] [address] Bill Trejo MD PET Scan Appt. (Spoke w/ patients daughter to provide PET Scan Appt info) 01/11/2025 3:45 PM CDT Telephone Check Up [facility] Oncology [facility] [address] [place] [address] Bill Trejo MD B-cell lymphoma, unspecified B-cell lymphoma type, unspecified body region (CMS/HCC) (Primary Dx) 01/06/2025 Orders Only [facility] Oncology and Hematology [facility] [address] [place] [address] Bill Trejo MD 01/05/2025 External Device Data STL ABSTRACTION Provider, Abstract 12/28/2024 External Device Data STL ABSTRACTION Provider, Abstract 12/28/2024 External Device Data STL ABSTRACTION Provider, Abstract 12/25/2024 External Device Data STL ABSTRACTION Provider, Abstract 12/24/2024 External Device Data STL ABSTRACTION Provider, Abstract 12/21/2024 External Device Data STL ABSTRACTION Provider, Abstract 12/16/2024 8:45 AM SIZING SPRAYER Office Visit [facility] Oncology [facility] Hematology [facility] [address] [place] [address] Bill Trejo MD Chronic anemia (Primary Dx); [...] Sign Reading Time Taken Comments Blood Pressure 126/81 02/03/2025 10:07 AM CDT Pulse 82 02/03/2025 10:07 AM CDT Temperature 36 C (96.8 F) 02/03/2025 10:07 AM CDT Respiratory Rate 16 02/03/2025 10:0 7 AM CDT Oxygen Saturation 94% 02/03/2025 10: 07 AM CDT Inhaled Oxygen Concentration - - Weight 109.9 kg (242 lb 3.2 oz) 025 10:07 AM CDT Height 154.9 cm (5' 1 ) 02/12/2024 3:03 PM CDT Body Mass Index 45.76 02/12/2024 3:03 PM CDT Plan of Treatment Upcoming Encounters Date Type Department Care Team (Late st Contact Info) Description 03/02/2025 1:00 PM CDT Office Visit [facility] Oncology and Hematology - [place] [address] [place] [address] Bill Trejo MD [address] [employer] [address] [place] [phone] 04/18/2025 10:15 AM CDT Office Visit [facility] Oncology and Hematology - [place] [address] [place] [phone] Bill Trejo MD [address] [employer] [address] [place] [phone] Health Maintenance Due Date Last Done Comments [...] Procedure Name Priority Date/Time Associated Diagnosis Comments PET BONE IMG W CT SKL BSE MID THG Routine 01/27/2025 11:44 AM CDT PATHOLOGY Routine 12/31/2024 12:38 PM CDT from Last 3 Months Results * PET BONE IMG W CT SKB MDTH (01/27/2025 11:44 AM CDT) Anatomical Region Laterality Modality Positron Emissio n Tomography (PET) Bill Treoj MD PE ORDERABLES Final Result * PATHOLOGY (12/31/2024 12:38 PM CDT) Tissue Bill Trejo MD PATHOLOGY/CYTOLOGY ORDERABLES F inal Result from Last 3 [place] [address] [place] AETNA O MCR Care Teams Manager Building Relationship Specialty Start Date End Date Koki Vaughn MD [facility] [facility] [place] [address] PCP - General Family Practice 02/05/24
[2025-02-22 09:14] LABS: Hemoglobin 12.7 g/dL (12.0-15.0)
[2025-02-22 09:23] LABS: Anion Gap 6 mmol/L (4-12); Blood Urea Nitrogen 28 mg/dL (7-17); Carbon Dioxide 35 mmol/L (22-30); Chloride 100 mmol/L (98-107); Estimated Glomerular Filt Rate > 60; Glucose 88 mg/dL (65-110); Potassium 4.1 mmol/L (3.4-5.0); Sodium 141 mmol/L (137-145)
== END 2025-02-22 08:13 | disposition home or self-care (01) ==
PROVIDERS: Anesthesiology; PCP Nurse Practitioner Family; Visit Provider Surgery
DX: D50.9 Iron deficiency anemia, unspecified (principal); Z79.899 Other long term (current) drug therapy
CPT/HCPCS: 36415; 80048; 85014; 85018

== ENCOUNTER 2025-02-28 00:21 | Day surgery (SDC) | payer MEDICARE, MEDICAID, SELFPAY ==
[2025-02-16 14:19] VITALS: BMI 45.8
--- NOTE | 2025-02-16 14:52 | PC.NURSE ---
Report to the Outpatient Waiting Room, entrance under the green pavilion located off [facility], at time _06:00AM on date Friday02/28/25 . Planned Procedure Time: 07:30 AM .? Time changes happen often and if your time is changed the preop area will call you the afternoon before. - You and your visitor will be asked to self-screen and do not enter if you have any COVID symptoms. Please call surgeon if you need to reschedule. - A mask is optional within the hospital at this time. Patients may have clear liquids (water, carbonated beverages, clear teas, apple juice) until 3 hours prior to surgery(4:30AM) with a maximum of 20 ounces. - No food from midnight until time of surgery and no smoking, or chewing tobacco (or any form of nicotine). No chewing gum, candy or mints. Take only the following medications with a SIP of water on the morning of surgery: __SYMBICORT INHALER __; USE YOUR ALBUTEROL INHALER NEEDED DO NOT STOP ANY OF YOUR OTHER PRESCRIPTION MEDICATIONS PRIOR TO SURGERY EXCEPT THE FOLLOWING Hold all vitamins and supplements for 3 days per anesthesiologist. Medications to discontinue per physician N/A Date to take last dose____N/A Please no make-up, nail thai, hairspray, perfume, deodorant, or body powder the day of surgery.? No jewelry (including any body piercings) or valuables the day of surgery, leave them at home.? Please take a shower or bath the night before, or the morning of, surgery with an antibacterial soap.? Wear comfortable, loose fitting clothing.? - Jewelry must be removed prior to entering the operating room.? Rings and piercings that are not removed may be cut off. - The hospital will not accept responsibility for valuables.? - Please leave all valuables, including medications, at home the day of surgery. If you are going home after surgery, a licensed mobile lounge driver or operator must drive you home.? - NO public transportation without another adult if you receive anesthesia. - We recommend that an adult stay with you for 24 hours following discharge. - We also recommend that you do not drive, make important decision, drink alcoholic beverages, or take any drugs that were not prescribed by your health care provider for at least 24 hours after your discharge time. Follow any additional instructions given to you from your surgeon. Telephone instructions given to SHILO____and asked if any additional questions and then verbalized understanding. Patient advised to call surgeon office or pre surgery nurse liaison [phone] if any additional questions.
[2025-02-28] VITALS (9 sets, daily range): BP systolic 127–146; BP diastolic 70–101; PULSE 73–100; RESP 16–20; TEMP 36.3–37; O2SAT 92–100
--- OUTSIDE RECORDS SUMMARY | 2025-02-28 00:24 | XMS_ITS | Clinical Summary ---
Author Organization [facility] Address [address] [place] [address] Care Team Providers Care Technical Proposal Writer Name Role Phone Unavailable Primary Care Provider Unavailabl e Source Comments [facility],non-owned Affiliates and Associated Physician Practices is amultiple site organization consisting of ambulatory clinics and hospital sitesin [place], [place], [place] and [place]. This disclosure is being madepursuant to the Care Everywhere program and may not contain all information available regarding this patient. 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 PATHOLOGY LAB Final Diagnosis Lymph node, left anterior lateral chest, needle core biopsy: - Atypical large B-cell infiltrate - See description 01/06/2025 9:41 AM CDT [facility] PATHOLOGY LAB Microscopic Description and Comment Sections [...] classification of this process. 01/06/2025 9:41 AM [facility] PATHOLOGY LAB Clinical History 59 year old woman with axillary adenopathy. 01/06/2025 9:41 AM [facility] PATHOLOGY LAB Pathologist Location at [facility] 01/06/2025 9:41 AM [facility] PATHOLOGY LAB Disclaimer The performance characteristics of all immunohistochemical and indirect immunofluorescence stains (if any) cited in this report were determined by the Histopathology Laboratory of [facility]. Some of these tests were developed [...] the attending (teaching) pathologist. 01/06/2025 9:41 AM [facility] PATHOLOGY LAB Embedded Images 01/06/2025 9:41 AM [facility] PATHOLOGY LAB Pathology/Cytolo gy BIOPSY OF LYMPH NODE / Unknown 12/31/2024 12:07 PM CDT 01/04/2025 2:53 PM CDT us Jalil España MD LAB - PATHOLOGY/CYTOLOGY ORDERAB LES Final Result [facility] PATHOLOGY LAB [address] [place] [address], [facility] [phone] from Last 3 Months Insurance MEDICA[place] - [place] AETNA MEDICARE [facility] SELF PAY NO INSURANCE Member Subscriber Plan / Payer (Ef fective for All Dates) Name:Vandana Avila Member ID:Not on file Relation to Subscriber:Not on file Name:VANDANA AVILA Subscriber ID:Not on file (Home) Address: [address] [place] [address] Payer ID:Not on file Group ID:Not on file Type:Self Pay Address: [place], [place] AETNA MEDICARE [place] * Guarantor: VANDANA AVILA Account Type Relation to Patient Date of Phone Billing Address Personal/Family Spouse [address] [address] AETNA MEDICARE [place] AET[place] MEDICARE [place] MEDIC[place]
--- OUTSIDE RECORDS SUMMARY | 2025-02-28 00:24 | XMS_ITS | Continuity of Care Document ---
Author Organization [facility] Address [address] [facility] [address] [place] [address] Phone Care Team Providers Care Nursing Home Admissions Director Name Role Phone Eric Espinoza MD, FACS [...] Copied on Encounter Office/outpat ient Visit, [facility], [address], [place], [place], [address], [place] tel:[phone] SEC Maximus MARSHALL Professional [employer] NOS 3 Alexis Eric. [address], [address], [place], [place], [address], [place]. tel:[phone] Referring Provider: Eric Fong, [facility] [address], [place], [address] . tel:[phone] [facility] [place], [address], [place], [place], [address], [place] tel:[phone] SEC Maximus MARSHALL Professional No Information 3 Alexis Eric. [address], [address], [place], [place], [address], [place]. tel:[phone] [facility] [place], [address], [place], [place], [address], [place] tel:[phone] SEC Maximus MARSHALL Professional KERAT[employer]ON[employer] NOS 2 Alexis Reyes. [facility] [address], [address], [place], [place], [address], [place]. tel:[phone] [employer] [place], [address], [place], [place], [address], [place] tel:[phone] SEC Maximus MARSHALL Professional No Information 2 Joeyfinesse Lentz. [address] [facility], [address], [place], [place], [address], [place]. tel:[phone] Family History Family Member Type Diagnosis Age At Onset No Information Payers Payer name Insurance type Covered constitution party ID Authoriza tion(s) Medicare [facility] [id number] Medicaid [facility] [id number] Social History Type Description Quantity Date Captured [...] pt. Discussed Collagen crosslinking. Discussed referral to [facility] for Dr. Womack to evaluate [...]
--- OUTSIDE RECORDS SUMMARY | 2025-02-28 00:24 | XMS_ITS | Encounter Summary ---
Author Organization [facility] Address [address] [facility] [address] Care Team Providers Care Rib Trim Separator Name Role Phone Unavailable Primary Care Provider Unavailabl e Encounter Details Date Type Department Care Team (Late st Contact Info) Description 01/04/2025 Lab Requisition [facility] - Pathology Lab [address] [place] [address] Jalil España MD [address] [address] Illness, unspecified Social History Tobacco Use Types Packs/Day Years Used Date Smoking Tobacco: Never Assessed Comments Unknown Sex and Gender Information Value Date Recorded Sex Assigned at Not on file Legal 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 Gender Identity Not on file Sexual Orientation Not on file documented as of this encounter Plan of Treatment Not on file documented as of this encounter Procedures Procedure Name Priority Date/Time Associated Diagnosis Comments PATHOLOGY TISSUE Routine 12/31/2024 12:0 7 PM CDT Illness, unspecified documented in this encounter Results * PATHOLOGY TISSUE (12/31/2024 12:07 PM CDT) Case Report Surgical Pathology Report Case: [id number] Authorizing Provider: Jalil España MD Collected: 12/31/2024 12:07 PM Ordering Location: [facility] - Received: 01/04/2025 02:53 PM Pathology Lab Pathologist: Paulina Love MD Specimen: Lymph Node Biopsy 01/06/2025 9:41 AM CDT [facility] Final Diagnosis Lymph node, left anterior lateral chest, needle core biopsy: - Atypical large B-cell infiltrate - See description 01/06/2025 9:41 AM [facility] Microscopic Description and Comment Sections [...] 9:41 AM [facility] Clinical History 59 year old woman with axillary adenopathy. 01/06/2025 9:41 AM [facility] Pathologist Location at [facility] 01/06/2025 9:41 AM [facility] Disclaimer The performance characteristics of all immunohistochemical and indirect immunofluorescence stains (if any) cited in this report were determined by the Histopathology Laboratory of [facility]. Some of these tests [...] attending (teaching) pathologist. 01/06/2025 9:41 AM CDT [facility] PATH[facility] Embedded Images 01/06/2025 9:41 AM CDT [facility] Pathology/Cytolo gy BIOPSY OF LYMPH NODE / Unknown 12/31/2024 12:07 PM CDT 01/04/2025 2:53 PM CDT us Jalil España MD LAB - PATHOLOGY/CYTOLOGY ORDERAB LES Final Result [facility] PATH[facility] LAB [address] [place] [address], [facility] [phone] documented in this encounter Visit Diagnoses Diagnosis Illness, unspecified documented in this encounter
--- OUTSIDE RECORDS SUMMARY | 2025-02-28 00:24 | XMS_ITS | Encounter Summary ---
Author Organization [facility] Address [address] [facility] [place] [address] Phone Care Team Providers Care Groover Operator Name Role Phone Koki Vaughn MD Primary Care Provider Encounter Details Date Type Department Care Team (Late st Contact Info) Description 12/07/2020 Telephone [facility] Oncology Services [address] [place] [id number] Aníbal Moser MD [address] [place] [address] Social History Tobacco Use Types Packs/Day Years [...] her preferred date of 12/27 at 1:30. MOTIVE ENGINEER DIESEL documented in this encounter Plan of Treatment Not on file documented as of this encounter Visit Diagnoses Not on filedocumented in this encounter Care Teams Groover Operator Relationship Specialty Start Date End Date Koki Vaughn MD PCP - General Family Medicine 09/06/20 documented as of this encounter
--- OUTSIDE RECORDS SUMMARY | 2025-02-28 00:24 | XMS_ITS | Clinical Summary ---
Author Organization [facility] Address [address] [place] [address] Phone Care Team Providers Care Scene And Lighting Design Lecturer Name Role Phone Koki Vaugnh MD Primary Care Provider Allergies No known [...] Comments Blood Pressure 145/79 12/24/2023 2:55 PM TRANSPORTATION REFRIGERATION TECHNICIAN Pulse 97 12/24/2023 2:55 PM TRANSPORTATION REFRIGERATION TECHNICIAN Temperature 36.5 C (97.7 F) 12/24/2023 2:55 PM TRANSPORTATION REFRIGERATION TECHNICIAN Respiratory Rate 16 12/24/2023 2:55 PM TRANSPORTATION REFRIGERATION TECHNICIAN Oxygen Saturation 96% 12/24/2023 2:55 PM TRANSPORTATION REFRIGERATION TECHNICIAN Inhaled Oxygen Concentration - - Weight 110.9 kg (244 lb 8 oz) 12/24/2023 2:55 PM TRANSPORTATION REFRIGERATION TECHNICIAN Height 152.4 cm (5') 08/06/2018 1:55 PM [...] age to complete this topic Insurance MEDICAID [place] MED[place] C AETNA Care Teams Scene And Lighting Design Lecturer Relationship Specialty Start Date End Date Koki Vaughn MD PCP - General Family Medicine 09/06/20
--- OUTSIDE RECORDS SUMMARY | 2025-02-28 00:24 | XMS_ITS | Continuity of Care Document ---
Author Organization [facility] Address [id number] [place] [address] [address] [place] [address] Phone Care Team Providers Care Bilingual Teacher Assistant Name Role Phone Martha MEJIA MD, Riaz Unavailable Unavailable Procedures Procedure Date OFFICE/OUTPATIENT VISIT, [facility] Advance Directives Directive Yes / No Effective Date File Name No Information Encounters Encounter Description Practice Location Reason(s) For Visit Diagnoses Date Provider Providers Copied on Encounter OFFICE/OUTPA TIENT VISIT, [facility], [address] [facility] [address], [place], [place], [address], tel:[phone] [facility] No Information 3 Martha Mello. [address] [facility], [address], [place], [place], [address] , [place]. [phone] Referring Provider: Riaz Thomas MD P, [address] [facility] [address], [place], [address] . tel:[phone] Family History Family Member Type Diagnosis Age [...]
--- OUTSIDE RECORDS SUMMARY | 2025-02-28 00:24 | XMS_ITS | Clinical Summary ---
Author Organization [facility] [address] Address [address] [place] [address] Care Team Providers Care Marine Engineering Consultant Name Role Phone Koki Vaughn MD [...] Encounters Date Type Department Care Team Description 02/22/2025 External Device Data STL ABSTRACTION Provider, Abstract 02/09/2025 Abstract [facility] Oncology and Hematology - [place] [address] [place] [address] Bill Trejo MD 02/09/2025 Abstract [facility] Oncology and Hematology - [place] [address] [place] [phone] Bill Trejo MD 02/03/2025 10:00 AM CDT Office Visit [facility] Oncology [facility] [address] [place] [phone] Bill Trejo MD Axillary lymphadenopathy (Primary Dx) 01/28/2025 Orders Only [facility] Oncology [facility] Hematology [place] [address] [address] [place] [address] Bill Trejo MD 01/13/2025 Telephone [facility] Oncology [place] [address] [address] [place] [address] Bill Trejo MD PET Scan Appt. (Spoke w/ patients daughter to provide PET Scan Appt info) 01/11/2025 3:45 PM CDT Telephone Check Up [facility] Oncology [facility] [address] [place] [phone] Bill Trejo MD B-cell lymphoma, unspecified B-cell lymphoma type, unspecified body region (CMS/HCC) (Primary Dx) 01/06/2025 Orders Only [facility] Oncology [facility] Hematology [place] [address] [address] [place] [phone] Bill Trejo MD 01/05/2025 External Device Data STL ABSTRACTION Provider, Abstract 12/28/2024 External Device Data STL ABSTRACTION Provider, Abstract 12/28/2024 External Device Data STL ABSTRACTION Provider, Abstract 12/25/2024 External Device Data STL ABSTRACTION Provider, Abstract 12/24/2024 External Device Data STL ABSTRACTION Provider, Abstract 12/21/2024 External Device Data STL ABSTRACTION Provider, Abstract 12/16/2024 8:45 AM ELEMENTARY SUPERVISOR Office Visit [facility] Oncology [facility] [address] [place] [phone] Bill Trejo MD Chronic anemia (Primary Dx); [...] Description 03/02/2025 1:00 PM CDT Office Visit [facility] Oncology and Hematology - [place] [address] [place] [address] Bill Trejo MD [address] [place] [address] 04/18/2025 10:15 AM CDT Office Visit [facility] Oncology and Hematology - [place] [address] [place] [address] Bill Trejo MD [address] [place] [address] Health Maintenance Due Date Last Done [...] of 2) 2016 INFLUENZA VACCINE (#1) 2024 Procedures Procedure Name Priority Date/Time Associated Diagnosis Comments PET BONE IMG W CT SKL BSE MID THG Routine 01/27/2025 11:44 AM CDT PATHOLOGY Routine 12/31/2024 12:38 PM CDT from Last 3 Months Results * PET BONE IMG W CT SKB MDTH (01/27/2025 11:44 AM CDT) Anatomical Region Laterality Modality Positron Emissio n Tomography (PET) Bill Trejo MD PE ORDERABLES Final Result * PATHOLOGY (12/31/2024 12:38 PM CDT) Tissue Bill Trejo MD PATHOLOGY/CYTOLOGY ORDERABLES F inal Result from Last 3 Months Insurance MEDICAID [place] AETNA O MCR Care Teams Marine Engineering Consultant Relationship Specialty Start Date End Date Koki Vaughn MD [address] [facility] [place] [address] PCP - General Family Practice 02/05/24
--- OUTSIDE RECORDS SUMMARY | 2025-02-28 00:24 | XMS_ITS | Encounter Summary ---
Author Organization [facility] Address [address] [facility] [place] [address] Phone Care Team Providers Care Brazer Electronic Name Role Phone Koki Vaughn MD Primary Care Provider Encounter Details Date Type Department Care Team (Late st Contact Info) Description 06/11/2022 Telephone [facility] Oncology Services [address] [place] [phone] Eli Soto [place] Social History Tobacco Use Types Packs/Day Years [...] for the Xolair. Faxed to Gregory Culp PHARMACY TECHNICIAN ASSISTANT office stating that we needed new order/auth in place before we could schedule her. She called back today andtold her that we were still waiting on the order/auth, would contact her when we had everything. documented in this encounter Plan of Treatment Not on file documented as of this encounter Visit Diagnoses Not on filedocumented in this encounter Care Teams Brazer Electronic Relationship Specialty Start Date End Date Koki Vaughn MD PCP - General Family Medicine 09/06/20 documented as of this encounter
--- OUTSIDE RECORDS SUMMARY | 2025-02-28 00:24 | XMS_ITS | Encounter Summary ---
Author Organization [facility] Address [address] [facility] [place] [address] Phone Care Team Providers Care Scrap Picker Name Role Phone Koki Vaughn MD Primary Care Provider Encounter Details Date Type Department Care Team (Late st Contact Info) Description 04/18/2021 Telephone [facility] Oncology Services [address] [place] [phone] Eli Soto [facility] Social History Tobacco Use Types Packs/Day [...] on filedocumented in this encounter Care Teams Scrap Picker Relationship Specialty Start Date End Date Koki Vaughn MD PCP - General Family Medicine 09/06/20 documented as of this encounter
--- OUTSIDE RECORDS SUMMARY | 2025-02-28 00:24 | XMS_ITS | Encounter Summary ---
Author Organization [facility] Address [address] [place] [address] Care Team Providers Care Business Management Analyst Name Role Phone Koki Vaughn MD Primary Care Provider Reason for Visit * Reason Onset Date Comments PET Scan Appt. 01/13/2025 Spoke w/ patient s daughter to provide PET Scan Appt info Encounter Details Date Type Department Care Team (Late st Contact Info) Description 01/13/2025 Telephone [facility] Oncology [facility] Hematology [place] [address] [address] [place] [address] Bill Trejo MD [facility] [address] [place] [address] PET Scan Appt. (Spoke w/ patients [...] Description 03/02/2025 1:00 PM CDT Office Visit [facility] Oncology [facility] Hematology [place] [address] [place] [address] Bill Trejo MD [address] [place] [address] 04/18/2025 10:15 AM CDT Office Visit [facility] Oncology and Hematology - [place] [address] [facility] [address] [place] [address] Bill Trejo MD [address] [facility] [address] [place] [address] documented as of this encounter Visit Diagnoses Not on filedocumented in this encounter Care Teams Business Management Analyst Relationship Specialty Start Date End Date Koki Vaughn MD [address] [facility]] [place] [address] PCP - General Family Practice 02/05/24 documented as of this encounter
--- NOTE | 2025-02-28 06:50 | P.PNAN_ITS ---
Anes - Initial Pre Proc Eval Procedure: Operation Date: 02/28/25 07:30 Proposed Procedures p Excisional Biopsy Left Axillary Lymphadenopathy - Kristel Pearson MD Date/Time: 02/28/25 06:50 Surgeon: Kristel Pearson MD Pre Op Diagnosis: Left Axillary Lymphadenopathy Patient Data Age: 59 Gender: F Height: 1.55 m Weight: 110 kg Allergies Allergy/AdvReac Type Severity Reaction Status Date / Time No Known Allergies Allergy Verified 02/16/25 14:48 Home Medications ?Medication ?Instructions ?Recorded ?Confirmed ?Type albuterol sulfate 90 mcg/actuation 1 - 2 inh inhalation Q4-6H PRN 06/25/24 02/16/25 Rx aerosol inhaler shortness of breath or wheezing #6.7 grams Symbicort 160 mcg-4.5 2 puff inhalation Q12H #10.2 grams 12/21/24 02/16/25 Rx mcg/actuation HFA aerosol inhaler (budesonide-formoterol) valsartan 160 1 tablet PO DAILY #90 tabs 01/27/25 02/16/25 Rx mg-hydrochlorothiazide 25 mg tablet ferrous sulfate 325 mg (65 mg 325 mg PO DAILY ANEMIA 02/16/25 02/16/25 History iron) tablet Patient hx anesthesia problems: none Family hx anesthesia problems: none Results Review: All pre-operative results and documents have been reviewed as part of the pre- operative evaluation. [facility] Past Medical History Medical History Allergies Iron deficiency anemia Neuropathy of left foot Chronic obstructive pulmonary disease with (acute) exacerbation Body mass index [BMI] 45.0-49.9, adult (01/07/19) History of intellectual disability Asthma Allergic rhinitis, unspecified Essential (primary) hypertension Surgical History Surgical History H/O: hysterectomy (~2004) 1999 Hx of eye surgery (~2015) Right Family History Family History Sibling Asthma Father Asthma Hypertension Social History Social History Social History: Caffeine-occasionally Smoking status: Never smoker Second hand tobacco smoke exposure: No Alcohol intake: never Substance use: never Substance use type: does not use Do You Feel Safe in your Home?: Yes Lack of Transportation: No Lack of Food: Never True Current Housing: I Have Housing Concerned About Future Housing: No Difficulty Paying Gas/Electric Bills: No Difficulty Paying for Meds: No Currently Unemployed: No Education: High School Diploma/GED Difficulty w/ Childcare or Family Care: No Living arrangements: with family Occupation/Education: other Gender identity (if verbalized by the patient): Female Spiritual care concerns: No Agree to blood products: Yes Anes - Eval Final PreProcedure Day of Procedure 02/28/25 06:50 Patient weight: morbidly obese Heart: regular rate and rhythm Lungs: clear to auscultation Airway: Mallampati scale class II Neurological: alert and oriented Last oral intake: >/= 8 hours ASA classification: III Emergent: no Anesthetic plan: proceed Anesthesia type and monitoring: general GIVS and standard monitoring Results Review: All pre-operative results and documents have been reviewed as part of the pre- operative evaluation. Informed Consent: The patient's anesthetic plan and its attendant risks and benefits were discussed with the patient/family/POA. Questions were solicited and answers provided to the satisfaction of the patient/family/POA.
--- NOTE | 2025-02-28 07:11 | WPDHPUPDATE1 ---
History and Physical Update Update Date/Time: 02/28/25 07:11 History and Physical has been reviewed, including an updated exam of the patient. There are NO changes in the patient's condition. Risks, benefits, and alternatives have been discussed and questions answered. Patient agrees to proceed with procedure.
[2025-02-28] MEDS: LACTATED RINGERS 1,000 ML 30 ML IV CONT (07:25)
[2025-02-28] MEDS: ceFAZolin 2 GM/D5W 50 ML 2 GM/50 ML BAG IVPB (07:34)
[2025-02-28] MEDS: BUPIVACAINE/EPINEPHRINE 0.5% 10 ML VIAL INFILTRATE (07:53)
--- NOTE | 2025-02-28 08:24 | P.OP_ITS ---
Procedure Note - Detailed Date of Procedure 02/28/25 Pre-op Diagnosis Left Axillary Lymphadenopathy Post-op Diagnosis Same Procedure Performed excisional biopsy left axillary lymphadenopathy Surgeon Kristel Pearson MD Anesthesia General and Local Indications 59-year-old female presenting to the office with left axillary lymphadenopathy. Patient had previous core needle biopsy that was nondiagnostic. Findings 8 x 5 cm area in the left axilla consistent with multiple enlarged lymph nodes Description of Procedure The patient was taken to the operating room and placed in the supine position. After adequate induction of general anesthesia, the patient was prepped and draped in the normal sterile fashion. A time-out was then done to verify the patient's identity, as well as the procedure being performed. I began by localizing the area in and around the left axilla. I then made an incision in the left axilla and carried this down to the subcutaneous tissue. The subcutaneous tissue was then incised until access to the axillary fascia was noted. I was then able to enter the axilla by excising the axillary fascia. A very large area of lymphadenopathy was noted upon entering the axilla. This ar ea was well encapsulated. I went ahead and excised this entire area. I was able to get around the stalk with a hemostat. The entire area was excised and sent to pathology for further review. There seemed to be multiple large lymph nodes in this packet. The area measured 8 x 5 cm. It will be sent to pathology for further review. The stalk was then tied with a 2-0 silk suture. Hemostasis was noted in the area. I then copiously irrigated the area. I then closed the axillary fascia and the subcutaneous tissue with 3-0 Vicryl suture. The skin was closed with 4-0 Monocryl subcuticular suture. The patient tolerated the procedure well and was extubated postoperatively. She will be sent to the recovery room in stable condition. Estimated Blood Loss 10 Pathology Yes Complications No immediate complications Condition Stable Disposition PACU [facility] Billing Surgery - Charge Forward: Surgery Billing
[2025-02-28] MEDS: fentaNYL CITRATE INJ (*CRX) 100 MCG/2 ML VIAL 25 MCG IV PUSH ×2 (08:43→08:45)
[2025-02-28] MEDS: oxyCODONE HCL (*CRX) 5 MG TAB IR PO (09:15)
== END 2025-02-28 10:20 | disposition home or self-care (01) ==
PROVIDERS: PCP Nurse Practitioner Family; Visit Provider Surgery
PROC: (CPT 38500; principal; 2025-02-28 07:30)
DX: R59.0 Localized enlarged lymph nodes (principal); I10 Essential (primary) hypertension; J44.9 Chronic obstructive pulmonary disease, unspecified
CPT/HCPCS: 38500; 88184; 88305; A9270; J0690; J1100; J2003; J2250; J2405; J2704; J3010; J7120

== ENCOUNTER 2025-04-13 09:21 | Outpatient (CLI) | payer MEDICARE, MEDICAID, SELFPAY ==
[2025-04-13 10:57] LABS: Basophils Percent Auto 0.8 % (0.2-1.2); Eosinophils Absolute Auto 0.3 K/mm3 (0-0.3); Eosinophils Percent Auto 5.5 % (0-4.4); Hematocrit 42.5 % (37.0-47.0); Immature Granulocyte Absolute 0.01 K/mm3 (0.00-0.031); Immature Granulocyte Percent A 0.2 % (0-0.5); Lymphocytes Absolute Auto 0.69 K/mm3 (0.9-3.2); Lymphocytes Percent Auto 13.6 % (18.3-44.2); Mean Corpuscular HGB Conc 30.6 g/dl (32-36); Mean Corpuscular Hemoglobin 30.4 pg (26-34); Mean Corpuscular Volume 99.5 fl (80-100); Mean Platelet Volume 11.3 fl (7.4-10.4); Monocytes Absolute Auto 0.5 K/mm3 (0.1-0.6); Monocytes Percent Auto 8.8 % (2.6-8.5); Neutrophils Absolute Auto 3.6 K/mm3 (1.3-6.7); Neutrophils Percent Auto 71.1 % (45.5-73.1); Platelet Count Result 194 k/mm3 (150-375); Red Blood Count 4.27 M/mm3 (4.2-5.4); Red Cell Distribution Width 12.7 % (11.5-14.5); White Blood Count 5.1 K/mm3 (4.5-10.0)
[2025-04-13 11:21] LABS: Anion Gap 9 mmol/L (4-12); Blood Urea Nitrogen 24 mg/dL (7-17); Calcium 9.7 mg/dL (8.4-10.2); Carbon Dioxide 29 mmol/L (22-30); Chloride 100 mmol/L (98-107); Estimated Glomerular Filt Rate > 60; Glucose 89 mg/dL (65-110); Potassium 3.9 mmol/L (3.4-5.0); Sodium 138 mmol/L (137-145)
[2025-04-13 11:48] LABS: Iron 132 ug/dL (37-170)
[2025-04-13 11:57] LABS: Percent Iron Saturation 35 % (20-50)
== END 2025-04-13 09:22 | disposition home or self-care (01) ==
PROVIDERS: PCP Family Medicine; Visit Provider Internal Medicine Hematology & Oncology
DX: D64.9 Anemia, unspecified (principal)
CPT/HCPCS: 36415; 80048; 82728; 83540; 83550; 85025

== ENCOUNTER 2025-05-25 14:52 | Outpatient (CLI) | payer MEDICARE, MEDICAID, SELFPAY ==
--- OUTSIDE RECORDS SUMMARY | 2025-05-25 15:04 | XMS_ITS | Encounter Summary ---
Author Organization [facility] Health Address [address] [facility] [place] [address] Care Team Providers Care Cdl Instructor Name Role Phone Unavailable Primary Care Provider Unavailabl e Encounter Details Date Type Department Care Team (Late st Contact Info) Description 01/04/2025 Lab Requisition [facility] - Pathology Lab [address] [place] [address] Jalil España MD [address] [address] Illness, unspecified Social History Tobacco Use Types Packs/Day Years Used Date Smoking Tobacco: Never Assessed Comments Unknown Sex and Gender Information Value Date Recorded Sex Assigned at Not on file Legal Sex Female 7:18 PM LOBSTER MAN Gender Identity Not on file Sexual Orientation Not on file documented as of this encounter Plan of Treatment Not on file documented as of this encounter Procedures Procedure Name Priority Date/Time Associated Diagnosis Comments PATHOLOGY TISSUE Routine 12/31/2024 12:0 7 PM CDT Illness, unspecified documented in this encounter Results * PATHOLOGY TISSUE (12/31/2024 12:07 PM CDT) Case Report Surgical Pathology Report Case: [id number] Authorizing Provider: Jalil España MD Collected: 12/31/2024 12:07 PM Ordering Location: [facility] - Received: 01/04/2025 02:53 PM Pathology Lab Pathologist: Paulina Love MD Specimen: Lymph Node Biopsy 01/06/2025 9:41 AM CDT [facility] Final Diagnosis Lymph node, left anterior lateral chest, needle core biopsy: - Atypical large B-cell infiltrate - See description 01/06/2025 9:41 AM [facility] at 0941 CDT Microscopic Description and Comment Sections show cores [...] classification of this process. 01/06/2025 9:41 AM [facility] Clinical History 59 year old woman with axillary adenopathy. 01/06/2025 9:41 AM [facility] Pathologist Location at [facility] 01/06/2025 9:41 AM [facility] Disclaimer The performance characteristics of all immunohistochemical and indirect immunofluorescence stains (if any) cited in this report were determined by the Histopathology Laboratory of [facility]. Some of these tests were developed [...] attending (teaching) pathologist. 01/06/2025 9:41 AM CDT [facility] Embedded Images 01/06/2025 9:41 AM CDT [facility] Pathology/Cytolo gy BIOPSY OF LYMPH NODE / Unknown 12/31/2024 12:07 PM CDT 01/04/2025 2:53 PM CDT us Jalil España MD LAB - PATHOLOGY/CYTOLOGY ORDERAB LES Final Result [facility] [address] [place] [address], [facility] [phone] documented in this encounter Visit Diagnoses Diagnosis Illness, unspecified documented in this encounter
--- OUTSIDE RECORDS SUMMARY | 2025-05-25 15:04 | XMS_ITS | Encounter Summary ---
Author Organization [facility] Address [address] [place] [address] Care Team Providers Care Plant Floor Automation Manager Name Role Phone Koki Vaughn MD Primary Care Provider Encounter Details Date Type Department Care Team (Late st Contact Info) Description 05/24/2025 External Device Data STL ABSTRACTION Provider, Abstract [...] Care Team (Late st Contact Info) Description 06/06/2025 9:15 AM CDT Office Visit [facility] Oncology and Hematology - [place] [address] [facility] [address] [place] [address] Bill Trejo MD [address] [facility] [address] [place] [address] documented as of this encounter Visit Diagnoses Not on filedocumented in this encounter Care Teams Plant Floor Automation Manager Relationship Specialty Start Date End Date Koki Vaughn MD [address] [place] [address] [place] [address] PCP - General Family Practice 02/05/24 documented as of this encounter
--- OUTSIDE RECORDS SUMMARY | 2025-05-25 15:04 | XMS_ITS | Encounter Summary ---
Author Organization [facility] Address [address] [facility] [place] [address] Phone Care Team Providers Care Clinical Education Consultant Name Role Phone Koki Vaughn MD Primary Care Provider Encounter Details Date Type Department Care Team (Late st Contact Info) Description 06/11/2022 Telephone [facility] Oncology Services [address] [place] [phone] Eli Soto MD Social History Tobacco Use Types Packs/Day Years [...] for the Xolair. Faxed to Gregory Culp [employer] office stating that we needed new order/auth in place before we could schedule her. She called back today andtold her that we were still waiting on the order/auth, would contact her when we had everything. documented in this encounter Plan of Treatment Not on file documented as of this encounter Visit Diagnoses Not on filedocumented in this encounter Care Teams Clinical Education Consultant Relationship Specialty Start Date End Date Koki Vaughn MD PCP - General Family Medicine 09/06/20 documented as of this encounter
--- OUTSIDE RECORDS SUMMARY | 2025-05-25 15:04 | XMS_ITS | Encounter Summary ---
Author Organization [facility] Address [address] [facility] [place] [address] Phone Care Team Providers Care Occupational Health Nurse Manager Name Role Phone Koki Vaughn MD Primary Care Provider Encounter Details Date Type Department Care Team (Late st Contact Info) Description 12/07/2020 Telephone [facility] Cancer Center Oncology Services [address] [place] [phone] Aníbal Moser MD [address] [place] [address] Social History Tobacco Use Types Packs/Day Years [...] her preferred date of 12/27 at 1:30. S AND PRODUCTION MANAGER documented in this encounter Plan of Treatment Not on file documented as of this encounter Visit Diagnoses Not on filedocumented in this encounter Care Teams Occupational Health Nurse Manager Relationship Specialty Start Date End Date Koki Vaughn MD PCP - General Family Medicine 09/06/20 documented as of this encounter
--- OUTSIDE RECORDS SUMMARY | 2025-05-25 15:04 | XMS_ITS | Encounter Summary ---
Author Organization [facility] Address [address] [place] [address] Care Team Providers Care Medicare Compliance Auditor Name Role Phone Koki Vaughn MD Primary Care Provider Reason for Visit * Reason Onset Date Comments PET Scan Appt. 01/13/2025 Spoke w/ patient s daughter to provide PET Scan Appt info Encounter Details Date Type Department Care Team (Late st Contact Info) Description 01/13/2025 Telephone [facility] Oncology [facility] Hematology [facility] [address] [place] [address] Bill Trejo MD [facility] [address] [place] [phone] PET Scan Appt. (Spoke w/ patients [...] Description 06/06/2025 9:15 AM CDT Office Visit [facility] Oncology [facility] Hematology [facility] [address] [place] [address] Bill Trejo MD [address] [place] [address] documented as of this encounter Visit Diagnoses Not on filedocumented in this encounter Care Teams Medicare Compliance Auditor Relationship Specialty Start Date End Date Koki Vaughn MD [address] [facility] [place] [address] PCP - General Family Practice 02/05/24 documented as of this encounter
--- OUTSIDE RECORDS SUMMARY | 2025-05-25 15:04 | XMS_ITS | Encounter Summary ---
Author Organization [facility] Address [address] [facility] [place] [address] Phone Care Team Providers Care Group Underwriter Name Role Phone Koki Vaughn MD Primary Care Provider Encounter Details Date Type Department Care Team (Late st Contact Info) Description 04/18/2021 Telephone [facility] Oncology Services [address] [place] [phone] Eli Soto [facility] Social History Tobacco Use Types Packs/Day [...] on filedocumented in this encounter Care Teams Group Underwriter Relationship Specialty Start Date End Date Koki Vaughn MD PCP - General Family Medicine 09/06/20 documented as of this encounter
--- OUTSIDE RECORDS SUMMARY | 2025-05-25 15:04 | XMS_ITS | Encounter Summary ---
Author Organization [facility] Health Address [address] [facility] [place] [address] Care Team Providers Care Multimedia Developer Name Role Phone Unavailable Primary Care Provider Unavailabl e Encounter Details Date Type Department Care Team (Late st Contact Info) Description 03/01/2025 Lab Requisition [facility] - Pathology Lab [address] [place] [address] Jalil España MD [address] [address] Illness, unspecified Social History Tobacco Use Types Packs/Day Years Used Date Smoking Tobacco: Never Assessed Comments Unknown Sex and Gender Information Value Date Recorded Sex Assigned at Not on file Legal Sex Female 7:18 PM RETORT ENGINEER Gender Identity Not on file Sexual Orientation Not on file documented as of this encounter Plan of Treatment Not on file documented as of this encounter Procedures Procedure Name Priority Date/Time Associated Diagnosis Comments PATHOLOGY TISSUE Routine 02/28/2025 8:25 AM CDT Illness, unspecified documented in this encounter Results * PATHOLOGY TISSUE (02/28/2025 8:25 AM CDT) Case Report Surgical Pathology Report Case: [id number] Authorizing Provider: Jalil España MD Collected: 02/28/2025 08:25 AM Ordering Location: [facility] - Received: 03/01/2025 12:56 PM Pathology Lab Pathologist: Mark Butts MD Specimen: Lymph Node 03/03/2025 4:00 PM CDT [facility] Final Diagnosis Left axillary lymph node, excisional biopsy: - 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 These large cells lack the typical morphology of popcorn cells in a large subset, but have prominent nucleoli, instead. 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 Immunohistochemistry is performed to show that a significant number of small lymphocytes represent CD20+ B-cells. Embedded in this background are the large cells expressing CD20 (strong), CD79a, PAX-5 (weak), PANCHO, BCL-6, MUM-1, CD45, and CD30 (weak). The CD30 co-expression is unusual for NLPBL, but has been reported. The staining of large cells for three B-cell markers is more in keeping with a B-cell lymphoma, rather than classic Hodgkin lymphoma. CD15 and CD10 are negative, as is ALBER. CD21 and CD23 highlight the expanded dendritic cell meshwork. CD19 cannot be assessed because most of the tissue fell off the slide. Per report: Flow cytometry shows atypical finding, in such that there is an increase in CD3+/CD4+/CD57+ T-cells, a characteristic background T-cell population present in NLPBL. Overall findings favor nodular lymphocyte predominant B-cell lymphoma over classic Hodgkin lymphoma or T-cell/histiocyte cell rich large B-cell lymphoma due to the co-expression of PANCHO in large cells and the background CD4+/CD57+ T-cell population. Usually, this entity shows localized disease and is clinically not aggressive. Therefore, clinical and radiographic (extent of disease?) correlation is recommended. This case was shown at a intradepartmental Hematopathology conference. 03/03/2025 4:00 PM [facility] Clinical History Axillary lymphadenopathy, 03/03/2025 4:00 PM [facility] Materials Received Received are 2 slide(s) and 2 blocks labeled [id number] along with a copy of the outside pathology report. The materials originate from [address] [place] [id number]. All original materials are returned to the referring institution, along with a copy of our final report. 03/03/2025 4:00 PM CDT [facility] Pathologist Location at [facility] 03/03/2025 4:00 PM CDT [facility] Disclaimer The performance characteristics of all immunohistochemical and indirect immunofluorescence stains (if any) cited in this report were determined by the Histopathology Laboratory of [facility]. Some of these tests were developed by [...] and interpreted by the attending (teaching) pathologist. 03/03/2025 4:00 PM CDT [facility] Embedded Images 03/03/2025 4:00 PM CDT [facility] Pathology/Cytolo gy ENTIRE LYMPH NODE / Unknown 02/28/2025 8:25 AM CDT 03/01/2025 12:56 PM CDT us Jalil España MD LAB - PATHOLOGY/CYTOLOGY ORDERAB LES Final Result Performing Organization Address City/State/[facility] Co de Phone Number [facility] LAB [address] [place] [address], [facility] [phone] documented in this encounter Visit Diagnoses Diagnosis Illness, unspecified documented in this encounter
--- OUTSIDE RECORDS SUMMARY | 2025-05-25 15:04 | XMS_ITS | Clinical Summary ---
Author Organization [facility] Address [address] [place] [address] Phone Care Team Providers Care Router Tender Name Role Phone Koki Vaughn MD [...] Comments Blood Pressure 145/79 12/24/2023 2:55 PM MAINTENANCE CONSTRUCTION HELPER Pulse 97 12/24/2023 2:55 PM MAINTENANCE CONSTRUCTION HELPER Temperature 36.5 C (97.7 F) 12/24/2023 2:55 PM MAINTENANCE CONSTRUCTION HELPER Respiratory Rate 16 12/24/2023 2:55 PM MAINTENANCE CONSTRUCTION HELPER Oxygen Saturation 96% 12/24/2023 2:55 PM MAINTENANCE CONSTRUCTION HELPER Inhaled Oxygen Concentration - - Weight 110.9 kg (244 lb 8 oz) 12/24/2023 2:55 PM MAINTENANCE CONSTRUCTION HELPER Height 152.4 cm (5') 08/06/2018 1:55 PM CDT Body Mass Index 47.75 08/06/2018 1:55 PM CDT Plan of Treatment Health Maintenance Due Date Last Done Comments Hepatitis C Virus (HCV) Screening 1966 Mammogram 1966 Hepatitis B Immunization (1 of 3 - 19+ 3-dose series) 1985 Cologuard 2011 Colonoscopy 2011 Colorectal Cancer Screening 2011 Immunochemical Fecal Occult Blood 2011 Zoster Immunization (1 of 2) 2016 Pneumococcal Immunization (50+ years) (2 of 2 - PCV) 09/20/2016 09/20/2015 SARS-COV-2 Immunization (3 - season) 2024 07/22/2021, 06/30/2021 Influenza Immunization (#1) 06/20/202506/21, 08/10/2022, 08/06/2021, Additional history exists Respiratory Syncytial Virus (RSV) Immunization (Adult) (1 - 1-dose 75+ series) 2041 Pneumococcal Immunization Combined Discontinued 09/20/2015 DTaP/Tdap/Td Immunization Discontinued 11/05/2022 TdaP Immunization Completed 11/05/2022 Human Papillomavirus (HPV) Immunization Aged Out No longer eligible based on patient's age to complete this topic Meningococcal Immunization (ACWY) Aged Out No longer eligible based on patient's age to complete this topic Rotavirus Immunization Aged Out No lo nger eligible based on patient's age to complete this topic Insurance MEDICAID [place] MEDICARE C [employer] Care Teams Router Tender Relationship Specialty Start Date End Date Koki Vaughn MD PCP - General Family Medicine 09/06/20
--- OUTSIDE RECORDS SUMMARY | 2025-05-25 15:04 | XMS_ITS | Clinical Summary ---
Author Organization [facility] Bernard adams [place] Address [address] [place] [address] Care Team Providers Care Plastics Fitter Name Role Phone Koki Vaughn MD [...] Encounters Date Type Department Care Team Description 05/24/2025 External Device Data STL ABSTRACTION Provider, Abstract 05/04/2025 External Device Data STL ABSTRACTION Provider, Abstract 05/03/2025 External Device Data STL ABSTRACTION Provider, Abstract 04/18/2025 10:15 AM CDT Office Visit [facility] Oncology and Hematology - [place] [address] [facility] [place] [address] Bill Trejo MD 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) 04/14/2025 Orders Only [facility] Oncology [facility] [address] [place] [address] Bill Trejo MD 04/05/2025 External Device Data STL ABSTRACTION Provider, Abstract 03/18/2025 Abstract [facility] Oncology [facility] [address] [place] [address] Augustin Navarro CMA 03/10/2025 External Device Data STL ABSTRACTION Provider, Abstract 03/09/2025 External Device Data STL ABSTRACTION Provider, Abstract 03/08/2025 9:15 AM CDT Office Visit [facility] Oncology [facility] [address] [place] [address] Bill Trejo MD 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); Chronic anemia 03/08/2025 External Device Data STL ABSTRACTION Provider, Abstract 02/22/2025 External Device Data STL ABSTRACTION Provider, [...] Sign Reading Time Taken Comments Blood Pressure 139/80 04/18/2025 9:08 AM CDT Pulse 82 04/18/2025 9:06 AM CDT Temperature 36.3 C (97.3 F) 04/18/2025 9:06 AM CDT Respiratory Rate 16 04/18/2025 9:06 AM CDT Oxygen Saturation 91% 04/18/2025 9:06 AM CDT Inhaled Oxygen Concentration - - Weight 111.1 kg (245 lb) 04/18/2025 9:06 AM CDT Height 154.9 cm (5' 1) 02/12/2024 3:03 PM CDT Body Mass Index 46.29 02/12/2024 3:03 PM CDT Plan of Treatment Upcoming Encounters Date Type Department Care Team (Late st Contact Info) Description 06/06/2025 9:15 AM CDT Office Visit [facility] Oncology and Hematology - [place] [address] [facility] [address] [place] [address] Bill Trejo MD [address] [facility] [address] [place] [address] Health Maintenance Due Date Last Done Comments Pre-Diabetes and Diabetes Screening 1966 DTAP/TDAP/TD VACCINES (1 - Tdap) 1985 HEPATITIS B VACCINES (1 of 3 - 19+ 3-dose series) 06/21 ZOSTER VACCINE (1 of 2) 1985 HPV/Cotest (21-29) 1987 CERVICAL CANCER SCREENING 1996 HPV/Cotest (30-65) 1996 PAP SMEAR 1996 BREAST CANCER SCREENING 2006 COLORECTAL SCREENING 2011 Colorectal Cancer Screening 2011 FIT-DNA Q 3 years 2011 FIT/FOBT Q 1 year 2011 Flex Sig/CT Colonography Q 5 years 2011 Medicare [place]age ([place]) Prev entative Visit/Annual Wellness Visit 10/20/2024 INFLUENZA VACCINE (#1) 2025 Procedures Procedure Name Priority Date/Time Associated Diagnosis Comments IRON LEVEL Routine 04/13/2025 9:17 AM CDT IRON LEVEL Routine 04/13/2025 8:05 AM CDT from Last 3 Months Results * IRON LEVEL (04/13/2025 9:17 AM CDT) Only the most recent of2 resultswithin the time period is included. Blood Bill Trejo MD CHEMISTRY ORDERABLES Final Resu lt from Last 3 Months Insurance MEDICAID [place] [facility] Care Teams Plastics Fitter Relationship Specialty Start Date End Date Koki Vaughn MD [address] [facility] [place] [address] PCP - General Family Practice 02/05/24
--- OUTSIDE RECORDS SUMMARY | 2025-05-25 15:04 | XMS_ITS | Clinical Summary ---
Author Organization [facility] Address [address] [place] [address] Care Team Providers Care Electrical Technician Instructor Name Role Phone Unavailable Primary Care Provider Unavailabl e Source Comments [facility],non-owned Affiliates and Associated Physician Practices is amultiple site organization consisting of ambulatory clinics and hospital sitesin [place], [place], [place] and [place]. This disclosure is being madepursuant to the Care Everywhere program and may not contain all information available regarding this patient. 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 Gender Identity Not on file Sexual Orientation [...] SCREENING 1966 LIPID TESTING 1966 MAMMOGRAM 1966 COVID-19 VACCINE (#1) 1971 HIV SCREENING 1981 HEPATITIS C SCREENING 07/04/1984 DTAP/TDAP/TD VACCINES (1 - Tdap) 1985 HEPATITIS B VACCINE (1 of 3 - 19+ 3-dose series) 1985 PNEUMOCOCCAL VACCINE 50+ (1 of 2 - PCV) 1985 ZOSTER VACCINE (1 of 2) 1985 PAP SMEAR 1987 DEPRESSION SCREENING 10/20/2024 MEDICARE AWV CALENDAR YEAR 2024 INFLUENZA VACCINE (#1) 2025 HIB VACCINE Aged Out No longer [...] Routine 02/28/2025 8:25 AM CDT Illness, unspecified from Last 3 Months Results * PATHOLOGY TISSUE (02/28/2025 8:25 AM CDT) Case Report Surgical Pathology Report Case: [id number] Authorizing Provider: Jalil España MD Collected: 02/28/2025 08:25 AM Ordering Location: [facility] - Received: 03/01/2025 12:56 PM Pathology Lab Pathologist: Mark Butts MD Specimen: Lymph Node 03/03/2025 4:[address] 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 at 1600 CDT Microscopic [...] a intradepartmental Hematopathology conference. 03/03/2025 4:00 PM [facility] Clinical History Axillary lymphadenopathy, 03/03/2025 4:00 PM [facility] Materials Received Received are 2 slide(s) and 2 blocks labeled [id number] along with a copy of the outside pathology report. [place] [address]. All original materials are returned to the referring institution, along with a copy of our final report. 03/03/2025 4:00 PM [facility] PATHOLOG[facility] Pathologist Location at [facility] 03/03/2025 4:00 PM [facility] Disclaimer The performance characteristics of all immunohistochemical and indirect immunofluorescence stains (if any) cited in this report were determined by the Histopathology Laboratory of [facility]. Some of these tests were developed [...] attending (teaching) pathologist. 03/03/2025 4:[address] [facility] Embedded Images 03/03/2025 4:[address] [facility] Pathology/Cytolo gy ENTIRE LYMPH NODE / Unknown 02/28/2025 8:25 AM CDT 03/01/2025 12:56 PM CDT Jalil España MD LAB - PATHOLOGY/CYTOLOGY ORDERAB LES Final Result [facility] [address] [place] [address], [facility] [phone] from Last 3 Months Insurance [place] AETNA MEDICARE [facility] SELF PAY NO INSURANCE Member Subscriber Plan / Payer (Ef fective for All Dates) Name:Vandana Avila Member ID:Not on file Relation to Subscriber:Not on file Name:VANDANA AVILA Subscriber ID:Not on file (Home) Address: [address] [place] [id number] Payer ID:Not on file Group ID:Not on file Type:Self Pay Address: [place], [place] AETNA MEDICARE [place] [facility] MEDICARE [place] Member Subscriber Plan / Payer (Ef fective for All Dates) Name:Vandana Avila Member ID:Not on file Relation to Subscriber:Self Name:Vandana Avila Hamida Subscriber ID:Not on file Payer ID:Not on file Group ID:Not on file Type:Medicaid [place] Address: [place] [id number] AETNA MEDICARE [place] Member Subscriber Plan / Payer (Ef fective for All Dates) Name:Vandana Avila Member ID:Not on file Relation to Subscriber:Self Name:Avila Vandana Hamida Subscriber ID:Not on file Payer ID:Not on file Group ID:Not on file Type:Medicaid [place] Address: [place] [id number] AETNA MEDICARE [place]
[2025-05-25 15:32] LABS: Hematocrit 40.1 % (37.0-47.0); Hemoglobin 13.2 g/dL (12.0-15.0); Immature Granulocyte Percent A 0.2 % (0-0.5); Lymphocytes Absolute Auto 0.54 K/mm3 (0.9-3.2); Mean Corpuscular HGB Conc 32.9 g/dl (32-36); Mean Corpuscular Hemoglobin 31.7 pg (26-34); Mean Corpuscular Volume 96.2 fl (80-100); Nucleated Red Blood Cells Absolute Auto 0.000 K/mm3 (0.0-0.012); Nucleated Red Blood Cells Perc 0.0 % (0.0-0.2); Platelet Count Result 197 k/mm3 (150-375); Red Blood Count 4.17 M/mm3 (4.2-5.4); White Blood Count 5.3 K/mm3 (4.5-10.0)
[2025-05-25 15:44] LABS: Alanine Aminotransferase 17 U/L (6-35); Albumin Level 4.3 g/dL (3.5-5.1); Alkaline Phosphatase 81 U/L (38-126); Anion Gap 6 mmol/L (4-12); Aspartate Amino Transferase 31 U/L (14-36); Bilirubin,Total 0.6 mg/dL (0.2-1.3); Blood Urea Nitrogen 22 mg/dL (7-17); Calcium 9.2 mg/dL (8.4-10.2); Carbon Dioxide 32 mmol/L (22-30); Chloride 97 mmol/L (98-107); Estimated Glomerular Filt Rate > 60; Glucose 85 mg/dL (65-110); Potassium 3.7 mmol/L (3.4-5.0); Sodium 135 mmol/L (137-145); Total Protein 7.1 g/dL (6.3-8.2)
== END 2025-05-25 14:53 | disposition home or self-care (01) ==
PROVIDERS: PCP Family Medicine; Visit Provider Internal Medicine Hematology & Oncology
DX: C81.04 Nodular lymphocyte predominant Hodgkin lymphoma, lymph nodes of axilla and upper limb (principal)
CPT/HCPCS: 36415; 80053; 85025

== ENCOUNTER 2025-05-31 09:06 | Outpatient (CLI) | payer MEDICARE, MEDICAID, SELFPAY ==
--- NOTE | ~2025-05-31 | PE_ITS ---
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 9.326 mCi of 18-fluorodeoxyglucose (18-FDG) was adminis tered i.v. Low dose computed tomography (CT) images were acquired from the base of the brain to the p roximal thighs for attenuation correction and anatomic localization. Positron emission tomography (PE T) images were acquired in the same distribution beginning 59 minutes after injection. Images includi ng fused PET/CT images were reconstructed in axial, coronal, and sagittal planes. Automated exposure control technique was employed. The dose-length product was 1203.00mGy-cm. COMPARISON: 01/27/2025 FINDINGS: Head/neck: There is symmetric increased activity in the oral cavity, palatine tonsils and ocular muscles without CT correlate, likely physiologic. No pathologically enlarged cervical lymphadenopathy or suspicious foci of increased FDG uptake in the visualized head or neck. Chest: Calcified left upper lobe nodule and calcified left hilar lymph nodes consistent with old granulomato us disease. Mild atelectasis at the anteromedial aspects of the left upper lobe and lingula. No other suspicious pulmonary nodules, pneumonia, pulmonary edema or pleural effusion. Heart size is normal. No pericardial effusion. Moderate-sized sliding-type hiatal hernia. Thoracic aorta is normal in calib er. Significant interval decrease in size of the previously enlarged FDG avid left axillary lymph nod es. There is residual mild increased uptake of a small left axillary lymph node with maximal SUV of 4 .7 which is too small to distinguish from the axillary neurovascular bundle. There is similar mild FD G uptake associated with 3 normal-sized lymph nodes at the right axilla the largest measuring 1.4 x 0 .9 cm with maximal SUV of 3.9. No other pathologically enlarged or abnormally FDG avid thoracic lymph adenopathy. Abdomen/pelvis/proximal thighs: Physiologic renal accumulation and excretion of FDG activity in the kidneys, bladder and along portio ns of ureters. Normal degree and heterogenous pattern of increased uptake throughout the liver withou t radiologic correlate or dominant FDG avid lesion. The gallbladder, pancreas, spleen and bilateral a drenal glands are normal. Mild uptake scattered throughout the bowels without radiologic correlate, a lso likely physiologic. Normal appendix. No other abnormal foci of increased FDG uptake or pathologic ally enlarged lymphadenopathy in the abdomen, pelvis or proximal thighs. Musculoskeletal: Moderate to severe spondylosis in the cervical, thoracic and lumbar spine. Osteitis pubis. No suspici ous lytic, blastic or abnormally FDG avid bone lesions. IMPRESSION: 1. Interval decrease in size and degree of activity associated with previous enlarged and moderately FDG avid left axillary lymph nodes consistent with response to treatment of reported lymphoma. There is mild residual uptake associated with a few normal-sized bilateral axillary lymph nodes which are e quivocal for mild residual disease. No other FDG avid lesions suspicious for lymphoma/progression of disease. Reviewed, dictated and finalized at location A. IMPRESSION: 1. Interval decrease in size and degree of activity associated with previous en larged and moderately FDG avid left axillary lymph nodes consistent with respon se to treatment of reported lymphoma. There is mild residual uptake associated with a few normal-sized bilateral axillary lymph nodes which are equivocal for mild residual disease. No other FDG avid lesions suspicious for lymphoma/progre ssion of disease.
--- OUTSIDE RECORDS SUMMARY | 2025-05-31 09:35 | XMS_ITS | Encounter Summary ---
Author Organization [facility] Address [address] [facility] [address] [place] [address] Care Team Providers Care Vp Product Marketing Name Role Phone Unavailable Primary Care Provider Unavailabl e Encounter Details Date Type Department Care Team (Late st Contact Info) Description 03/01/2025 Lab Requisition [facility] - Pathology Lab [address] [place] [address] Jalil España MD [address] [address] Illness, unspecified Social History Tobacco Use Types Packs/Day Years Used Date Smoking Tobacco: Never Assessed Comments Unknown Sex and Gender Information Value Date Recorded Sex Assigned at Not on file Legal 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 Gender Identity Not on file Sexual Orientation Not on file documented as of this encounter Plan of Treatment Not on file documented as of this encounter Procedures Procedure Name Priority Date/Time Associated Diagnosis Comments PATHOLOGY TISSUE Routine 02/28/2025 8:25 AM CDT Illness, unspecified documented in this encounter Results * PATHOLOGY TISSUE (02/28/2025 8:25 AM CDT) Case Report Surgical Pathology Report Case: [id number] Authorizing Provider: Jalil España MD Collected: 02/28/2025 08:25 AM Ordering Location: [facility] - Received: 03/01/2025 12:56 PM Pathology Lab Pathologist: Mark Butts MD Specimen: Lymph Node 03/03/2025 4:00 PM CDT [facility] Final Diagnosis Left axillary lymph node, excisional biopsy: - 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 03/03/2025 4:00 PM [facility] Clinical History Axillary lymphadenopathy, 03/03/2025 4:00 PM [facility] Materials Received Received are 2 slide(s) and 2 blocks labeled [id number] along with a copy of the outside pathology report. The materials originate from [address] [place] [address]. All original materials are returned to the referring institution, along with a copy of our final report. 03/03/2025 4:00 PM CDT [facility] Pathologist Location at [facility] 03/03/2025 4:00 PM CDT [facility] Disclaimer The performance characteristics of all immunohistochemical and indirect immunofluorescence stains (if any) cited in this report were determined by the Histopathology Laboratory of [facility]. Some of these tests were developed by [...] attending (teaching) pathologist. 03/03/2025 4:00 PM CDT [facility] Embedded Images 03/03/2025 4:00 PM CDT [facility] Pathology/Cytolo gy ENTIRE LYMPH NODE / Unknown 02/28/2025 8:25 AM CDT 03/01/2025 12:56 PM CDT us Jalli España MD LAB - PATHOLOGY/CYTOLOGY ORDERAB LES Final Result Performing Organization Address City/State/[facility] Co de Phone Number [facility] [address] [place] [address], [facility] [phone] documented in this encounter Visit Diagnoses Diagnosis Illness, unspecified documented in this encounter
--- OUTSIDE RECORDS SUMMARY | 2025-05-31 09:35 | XMS_ITS | Encounter Summary ---
Author Organization [facility] Address [address] [place] [address] Phone Care Team Providers Care Straight Edger Name Role Phone Koki Vaughn MD Primary Care Provider Encounter Details Date Type Department Care Team (Late st Contact Info) Description 06/11/2022 Telephone [facility] - Cancer Center Oncology Services [address] [place] [phone] Eli Soto [place] Social History Tobacco Use Types Packs/Day Years [...] for the Xolair. Faxed to Gregory Culp UNDERWATER PHOTOGRAPHER office stating that we needed new order/auth in place before we could schedule her. She called back today andtold her that we were still waiting on the order/auth, would contact her when we had everything. documented in this encounter Plan of Treatment Not on file documented as of this encounter Visit Diagnoses Not on filedocumented in this encounter Care Teams Straight Edger Relationship Specialty Start Date End Date Koki Vaughn MD PCP - General Family Medicine 09/06/20 documented as of this encounter
--- OUTSIDE RECORDS SUMMARY | 2025-05-31 09:35 | XMS_ITS | Clinical Summary ---
Author Organization [facility] Address [address] [place] [address] Care Team Providers Care Border Measurer Name Role Phone Unavailable Primary Care Provider Unavailabl e Source Comments [facility],non-owned Affiliates and Associated Physician Practices is amultiple site organization consisting of ambulatory clinics and hospital sitesin [place], [place], [place]. This disclosure is being madepursuant to the Care Everywhere program and may not contain all information available regarding this patient. 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 Gender Identity Not on file Sexual Orientation [...] CDT) Case Report Surgical Pathology Report Case: [id number] Authorizing Provider: Jalil España MD Collected: 02/28/2025 08:25 AM Ordering Location: [facility] - Received: 03/01/2025 12:56 PM Pathology Lab Pathologist: Mark Butts MD Specimen: Lymph Node 03/03/2025 4:00 PM CDT [facility] Final Diagnosis Left axillary lymph node, excisional biopsy: - 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 03/03/2025 4:00 PM [facility] Clinical History Axillary lymphadenopathy, 03/03/2025 4:00 PM [facility] Materials Received Received are 2 slide(s) and 2 blocks labeled [id number] along with a copy of the outside pathology report. [place] [address]. All original materials are returned to the referring institution, along with a copy of our final report. 03/03/2025 4:00 PM [facility] Pathologist Location at [facility] 03/03/2025 4:00 PM [facility] Disclaimer The performance characteristics of all immunohistochemical and indirect immunofluorescence stains (if any) cited in this report were determined by the Histopathology Laboratory of [facility]. Some of these tests were developed [...] attending (teaching) pathologist. 03/03/2025 4:00 PM CDT [facility] Embedded Images 03/03/2025 4:00 PM CDT [facility] Pathology/Cytolo gy ENTIRE LYMPH NODE / Unknown 02/28/2025 8:25 AM CDT 03/01/2025 12:56 PM CDT Jalil España MD LAB - PATHOLOGY/CYTOLOGY ORDERAB LES Final Result [facility] [address] [place] [address], [facility] [phone] from Last 3 Months Insurance [place] AET[place] MEDICARE [facility] SELF PAY NO INSURANCE Member Subscriber Plan / Payer (Ef fective for All Dates) Name:Vandana Avila Member ID:Not on file Relation to Subscriber:Not on file Name:VANDANA AVILA Subscriber ID:Not on file (Home) Address: [address] [place] [id number] Payer ID:Not on file Group ID:Not on file Type:Self Pay Address: [place], [place] AETNA MEDICARE [place] [facility] [place] Member Subscriber Plan / Payer (Ef fective for All Dates) Name:Vandana Avila Member ID:Not on file Relation to Subscriber:Self Name:Vandana Avila Hamida Subscriber ID:Not on file Payer ID:Not on file Group ID:Not on file Type:Medicaid [place] Address: [place] [id number] AETNA MEDICARE [place] Member Subscriber Plan / Payer (Ef fective for All Dates) Name:Vandana Avila Member ID:Not on file Relation to Subscriber:Self Name:Avila Vandana Hamida Subscriber ID:Not on file Payer ID:Not on file Group ID:Not on file Type:Medicaid [place] Address: [place] [id number] AETNA MEDICARE [place]
--- OUTSIDE RECORDS SUMMARY | 2025-05-31 09:35 | XMS_ITS | Clinical Summary ---
Author Organization [facility] Bernard ad[facility] Address [address] [place] [address] Care Team Providers Care Verifying Machine Operator Name Role Phone Koki Vaughn MD [...] Encounters Date Type Department Care Team Description 05/26/2025 Orders Only [facility] Oncology and Hematology - Isak [address] [place] [phone] Bill Trejo MD 05/24/2025 External Device Data STL ABSTRACTION Provider, Abstract 05/04/2025 External Device Data ST[facility] ABSTRACTION Provider, Abstract 05/03/2025 External Device Data ST[facility] ABSTRACTION Provider, Abstract 04/18/2025 10:15 AM CDT Office Visit [facility] Oncology and Hematology [facility] [address] [place] [address] Bill Trejo MD 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) 04/14/2025 Orders Only [facility] Oncology and Hematology [facility] [address] [place] [address] Bill Trejo MD 04/05/2025 External Device Data STL ABSTRACTION Provider, Abstract 03/18/2025 Abstract [facility] Oncology [facility] Hematology [facility] [address] [place] [address] Augustin Navaror, [place] 03/10/2025 External Device Data STL ABSTRACTION Provider, Abstract 03/09/2025 External Device Data STL ABSTRACTION Provider, Abstract 03/08/2025 9:15 AM CDT Office Visit [facility] Oncology [facility] Hematology [facility] [address] [place] [address] Bill Trejo MD Nodular lymphocyte predominant Hodgkin [...] Description 06/06/2025 9:15 AM CDT Office Visit [facility] Oncology and Hematology [facility] [address] [facility] [address] [place] [address] Bill Trejo MD [address] [facility] [place] [address] Health Maintenance Due Date Last [...] Flex Sig/CT Colonography Q 5 years 2011 INFLUENZA VACCINE (#1) 2025 Procedures Procedure Name Priority Date/Time Associated Diagnosis Comments COMPREHENSIVE METABOLIC PANEL Routine 05/25/2025 12:39 PM CDT IRON LEVEL Routine 04/13/2025 9:17 AM CDT IRON LEVEL Routine 04/13/2025 8:05 AM CDT from Last 3 Months Results * COMPREHENSIVE METABOLIC PANEL (05/25/2025 12:39 PM CDT) Blood Bill Trejo MD CHEMISTRY ORDERABLES Final Resu lt * IRON LEVEL (04/13/2025 9:17 AM CDT) Only the most recent of2 resultswithin the time period is included. Blood Bill Trejo MD CHEMISTRY ORDERABLES Final Resu lt from Last 3 Months Insurance [place]ICAID [place] [facility] Care Teams Verifying Machine Operator Relationship Specialty Start Date End Date Koki Vaughn MD [address] [facility] [facility] [address] [place] [address] PCP - General Family Practice 02/05/24
--- OUTSIDE RECORDS SUMMARY | 2025-05-31 09:35 | XMS_ITS | Encounter Summary ---
Author Organization [facility] Address [address] [place] [address] Care Team Providers Care Crossbow Maker Name Role Phone Koki Vaughn MD Primary Care Provider Reason for Visit * Reason Onset Date Comments PET Scan Appt. 01/13/2025 Spoke w/ patient s daughter to provide PET Scan Appt info Encounter Details Date Type Department Care Team (Late st Contact Info) Description 01/13/2025 Telephone [facility] Oncology [facility] Hematology [facility] [address] [place] [address] Bill Trejo MD [facility] [email or web address] [address] [place] [address] PET Scan Appt. (Spoke w/ patients [...] Description 06/06/2025 9:15 AM CDT Office Visit [facility] Oncology [facility] Hematology Isak [address] [place] [address] Bill Trejo MD [address] [email or web address] [address] [place] [address] documented as of this encounter Visit Diagnoses Not on filedocumented in this encounter Care Teams Crossbow Maker Relationship Specialty Start Date End Date Koki Vaughn MD [address] [facility] [place] [address] PCP - General Family Practice 02/05/24 documented as of this encounter
--- OUTSIDE RECORDS SUMMARY | 2025-05-31 09:35 | XMS_ITS | Encounter Summary ---
Author Organization [facility] Address [address] [facility] [facility] [place] [place] [address] Phone Care Team Providers Care Solar Energy Systems Designer Name Role Phone Koki Vaughn MD Primary Care Provider Encounter Details Date Type Department Care Team (Late st Contact Info) Description 04/18/2021 Telephone [facility] Oncology Services [address] [place] [phone] Eli Soto [facility] Social History Tobacco Use Types Packs/Day [...] on filedocumented in this encounter Care Teams Solar Energy Systems Designer Relationship Specialty Start Date End Date Koki Vaughn MD PCP - General Family Medicine 09/06/20 documented as of this encounter
--- OUTSIDE RECORDS SUMMARY | 2025-05-31 09:35 | XMS_ITS | Encounter Summary ---
Author Organization [facility] Address [address] [place] [address] Care Team Providers Care Salesperson Men'S Hats Name Role Phone Unavailable Primary Care Provider Unavailabl e Encounter Details Date Type Department Care Team (Late st Contact Info) Description 01/04/2025 Lab Requisition [facility] - Pathology Lab [address] [place] [address] Jalil España MD [address] [address] Illness, unspecified Social History Tobacco Use Types Packs/Day Years Used Date Smoking Tobacco: Never Assessed Comments Unknown Sex and Gender Information Value Date Recorded Sex Assigned at Not on file Legal Sex Female 7:18 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 Gender Identity Not on file Sexual Orientation Not on file documented as of this encounter Plan of Treatment Not on file documented as of this encounter Procedures Procedure Name Priority Date/Time Associated Diagnosis Comments PATHOLOGY TISSUE Routine 12/31/2024 12:0 7 PM CDT Illness, unspecified documented in this encounter Results * PATHOLOGY TISSUE (12/31/2024 12:07 PM CDT) Case Report Surgical Pathology Report Case: [id number] Authorizing Provider: Jalil España MD Collected: 12/31/2024 12:07 PM Ordering Location: [facility] - Received: 01/04/2025 02:53 PM Pathology Lab Pathologist: Paulina Love MD Specimen: Lymph Node Biopsy 01/06/2025 9:41 AM CDT [facility] Final Diagnosis Lymph node, left anterior lateral chest, needle core biopsy: - Atypical large B-cell infiltrate - See description 01/06/2025 9:41 AM [facility] PATHOLOG[facility] at 0941 CDT Microscopic Description [...] classification of this process. 01/06/2025 9:41 AM [facility] Clinical History 59 year old woman with axillary adenopathy. 01/06/2025 9:41 AM [facility] Pathologist Location at [facility] 01/06/2025 9:41 AM [facility] Disclaimer The performance characteristics of all immunohistochemical and indirect immunofluorescence stains (if any) cited in this report were determined by the Histopathology Laboratory of [facility]. Some of these tests [...] attending (teaching) pathologist. 01/06/2025 9:41 AM [address] [facility] Embedded Images 01/06/2025 9:41 AM CD[address] [facility] Pathology/Cytolo gy BIOPSY OF LYMPH NODE / Unknown 12/31/2024 12:07 PM CDT 01/04/2025 2:53 PM CDT us Jalil España MD LAB - PATHOLOGY/CYTOLOGY ORDERAB LES Final Result [facility] [address] [place] [address], [facility] [phone] documented in this encounter Visit Diagnoses Diagnosis Illness, unspecified documented in this encounter
--- OUTSIDE RECORDS SUMMARY | 2025-05-31 09:36 | XMS_ITS | Encounter Summary ---
Author Organization [facility] Address [address] [place] [address] Care Team Providers Care Manager Financial Systems Name Role Phone Koki Vaughn MD Primary Care Provider Encounter Details Date Type Department Care Team (Late Contact Info) Description 05/26/2025 Orders Only [facility] Oncology and Hematology [facility] [address] [place] [address] Bill Trejo MD [facility] [employer] [address] [place] [address] Social History Tobacco Use Types Packs/Day Years [...] Encounters Date Type Department Care Team (Late Contact Info) Description 06/06/2025 9:15 AM CDT Office Visit [facility] Oncology and Hematology - Isak [address] [place] [address] Bill Trejo MD [address] [employer] [address] [place] [address] documented as of this encounter Procedures Procedure Name Priority Date/Time Associated Diagnosis Comments COMPREHENSIVE METABOLIC PANEL Routine 05/25/2025 12:39 PM CDT documented in this encounter Results * COMPREHENSIVE METABOLIC PANEL (05/25/2025 12:39 PM CDT) Blood Bill Trejo MD CHEMISTRY ORDERABLES Final Resu lt documented in this encounter Visit Diagnoses Not on filedocumented in this encounter Care Teams Manager Financial Systems Relationship Specialty Start Date End Date Koki Vaughn MD [address] [facility] [place] [address] PCP - General Family Practice 02/05/24 documented as of this encounter
--- OUTSIDE RECORDS SUMMARY | 2025-05-31 09:36 | XMS_ITS | Clinical Summary ---
Author Organization [facility] Address [address] [place] [address] Phone Care Team Providers Care Cotton Bag Clipper Name Role Phone Koki Vaughn MD Primary [...] Comments Blood Pressure 145/79 12/24/2023 2:55 PM EASTERN PHILOSOPHY PROFESSOR Pulse 97 12/24/2023 2:55 PM EASTERN PHILOSOPHY PROFESSOR Temperature 36.5 C (97.7 F) 12/24/2023 2:55 PM EASTERN PHILOSOPHY PROFESSOR Respiratory Rate 16 12/24/2023 2:55 PM EASTERN PHILOSOPHY PROFESSOR Oxygen Saturation 96% 12/24/2023 2:55 PM EASTERN PHILOSOPHY PROFESSOR Inhaled Oxygen Concentration - - Weight 110.9 kg (244 lb 8 oz) 12/24/2023 2:55 PM EASTERN PHILOSOPHY PROFESSOR Height 152.4 cm (5') 08/06/2018 1:55 PM [...] MED[place]ID [place] MED[place] AETNA Care Teams Cotton Bag Clipper Relationship Specialty Start Date End Date Koki Vaughn MD PCP - General Family Medicine 09/06/20
--- OUTSIDE RECORDS SUMMARY | 2025-05-31 09:36 | XMS_ITS | Encounter Summary ---
Author Organization [facility] Address [address] [facility] [place] [address] Phone Care Team Providers Care Plastic Production Machine Setter Name Role Phone Koki Vaughn MD Primary Care Provider Encounter Details Date Type Department Care Team (Late st Contact Info) Description 12/07/2020 Telephone [facility] Oncology Services [address] [place] [phone] Aníbal Moser MD [address] [place] [address] Social History Tobacco Use Types Packs/Day Years [...] her preferred date of 12/27 at 1:30. Y CHILDHOOD COORDINATOR documented in this encounter Plan of Treatment Not on file documented as of this encounter Visit Diagnoses Not on filedocumented in this encounter Care Teams Plastic Production Machine Setter Relationship Specialty Start Date End Date Koki Vaughn MD PCP - General Family Medicine 09/06/20 documented as of this encounter
== END 2025-05-31 09:07 | disposition home or self-care (01) ==
PROVIDERS: PCP Nurse Practitioner Family; Visit Provider Internal Medicine Hematology & Oncology
DX: C81.04 Nodular lymphocyte predominant Hodgkin lymphoma, lymph nodes of axilla and upper limb (principal)
CPT/HCPCS: 78815; A9552

== ENCOUNTER 2025-08-05 23:36 | Emergency (ER) | payer MEDICARE, MEDICAID, SELFPAY ==
--- OUTSIDE RECORDS SUMMARY | 2013-05-18 09:30 | XMS_ITS | Continuity of Care Document ---
Author Organization [facility] Address [id number] [place] [address] [address] [place] [address] Phone Care Team Providers Care Event Mgr Name Role Phone Martha MEJIA MD, Riaz Unavailable Unavailable Procedures Procedure Date OFFICE/OUTPATIENT VISIT, [facility] Advance Directives Directive Yes / No Effective Date File Name No Information Encounters Encounter Description Practice Location Reason(s) For Visit Diagnoses Date Provider Providers Copied on Encounter OFFICE/OUTPA TIENT VISIT, [facility], [address], [place], [place], [address], tel:[phone] [facility] No Information 3 Martha Mello. [address], [address], [place], [place], [address] , [place]. [phone] Referring Provider: Riaz Thomas MD P, [address], [place], [address] . tel:[phone] Family History Family Member Type Diagnosis Age At Onset No Information Payers Payer name Insurance type Covered democrat ID Authoriza tion(s) No Information Social History Type Description Quantity Date Captured Comments Sex Female Smoking Status No Information Chief Complaint And Reason For Visit No Information Reason For Referral Reason For Referral No Information History Of Present Illness Encounter Date Complaint History Of Prese nt Illness No Information Functional Status Date Functional Assessmen t No Information Instructions Date Instruction Additional Infor mation No Information Assessments Type Assessment Date No Information Patient Care Teams Name Effective Dates (start - stop) Status Members No Information
--- OUTSIDE RECORDS SUMMARY | 2013-08-31 04:15 | XMS_ITS | Continuity of Care Document ---
Author Organization [facility] Address [address] [facility] [address] [place] [address] Phone Care Team Providers Care Motor Bus Driver Name Role Phone Eric Espinoza MD, FACS Unavailable Unavailab le Allergies, Adverse Reactions, Alerts Substance Reaction Status Criticality No Known allergies Medications Medication Instructions Dosage Effective Dates (start - stop) Status Comments Diovan 160 mg Tab take 1 tablet (160MG) by ORAL route every day 160 MG - Active ADVAIR DISKUS (unknown strength) Not Available - Active XOPENEX (unknown strength) Not Available - Active Singulair 10 mg Tab take 1 tablet (10MG) by ORAL route every day in the evening 10 MG - Active Procedures Procedure Date Office/outpatient Visit, Est No Charge [facility] 013 Office/outpatient Visit, Est No Charge [facility] 013 Eye Exam, New Patient Certified EMR Advance Directives Directive Yes / No Effective Date File Name Resuscitation Not Answered N/A N/A Life Support Not Answered N/A N/A Intubation Not Answered N/A N/A Antibiotics Not Answered N/A N/A IV Fluid Support Not Answered N/A N/A Tube Feed Not Answered N/A N/A Other Directive N/A N/A WARNING:The information contained in this section is historical and is provided for information only and does not constitute a legal document or any assurance that the information is still accurate. Please verify the information with the barry of the legal document before using it for clinical purposes. Encounters Encounter Description Practice Location Reason(s) For Visit Diagnoses Date Provider Providers Copied on Encounter Office/outpat ient Visit, [facility], [address], [place], [place], [address], [place] tel:[phone] [facility] KERATOCONUS NOS 3 Alexis Eric. [address], [address], [place], [place], [address], [place]. tel:[phone] Referring Provider: Eric Fong, [facility] [address], [place], [address] . tel:[phone] [facility], [address], [place], [place], [address], [place] tel:[phone] [facility] AMRSH[facility] No Information 3 Alexis Eric. [address], [address], [place], [place], [address], [place]. tel:[phone] [facility], [address], [place], [place], [address], [place] tel:[phone] SEC [employer] [facility] KERATOCONUS NOS 2 Alexis Reyes. [facility] [address], [place], [place], [address], [place]. tel:[phone] [facility], [address], [place], [place], [address], [place] tel:[phone] SEC [facility] No Information 2 Joeyfinesse Lentz. [address] [facility], [address], [place], [place], [address], [place]. tel:[phone] Family History Family Member Type Diagnosis Age At Onset No Information Payers Payer name Insurance type Covered libertarian ID Authoriza tion(s) Medicare [facility] [id number] Medicaid [facility] [id number] Social History Type Description Quantity Date Captured Comments Alcohol Use Details No Caffeine Use Details 2-3 Sodas per day 013 Tobacco Use Status No Information Smoking Status Never smoker Non-Smoking Tobacco Use Details : No Details Available : No Details Available Sex Female Chief Complaint And Reason For Visit No Information Reason For Referral Reason For Referral No Information History Of Present Illness Encounter Date Complaint History Of Prese nt Illness No Information Functional Status Date Functional Assessmen t No Information Instructions Date Instruction Additional Infor jimbo - refer for collagen crosslinking, or 6 months complete Related to KERATOCONUS NOS KERATOCONUS NOS OU - Discussed dx with pt. Discussed Collagen crosslinking. Discussed referral to [facility] for Dr. Womack to evaluate for FDA study, if pt defers we will see her back in 6 months. Educational materials provided:Collagen Crosslinking. 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 Still not yet FDA approved and will keep pt on our waiting list and proceed when approved. Related to Keratoconus - 6 months cornea check Related to Keratoconus Keratoconus, OU - vi madhuri affected - Discussed collagen crosslinking with pt. Pt aware at this time this is not yet FDA approved. Pt elects this procedure and we will add her to the waiting list. Rec not changing specs at this time. Related to Keratoconus - 6 months keratocon us check with orbscan if able Related to Keratoconus Assessments Type Assessment Date No Information Patient Care Teams Name Effective Dates (start - stop) Status Members No Information
--- NOTE | ~2025-08-05 | XR_ITS ---
Examination: XR chest 1V portable Clinical History: dyspnea at rest and exertion. asthma. wheezing. Comparison: 12/08/2024 Technique: Portable AP Findings: Heart size normal. Diffusely increased interstitial markings. No acute bony abnormality. Large hiatal hernia. IMPRESSION: 1. Interstitial pulmonary edema and/or pneumonitis. Reviewed, dictated and finalized at location R.
--- NOTE | ~2025-08-05 | XR_ITS ---
Examination: XR chest 1V portable Clinical History: SOB. post intubation and central line and NG tube Comparison: 1 day prior Technique: Portable AP Findings: ET tube, NG tube, right subclavian central line. Cardiomegaly. Mild diffuse interstitial markings. No pneumothorax. No acute bony abnormality. IMPRESSION: 1. ET tube in place. 2. NG tube sidehole at GE junction, recommend further advancement. 3. No pneumothorax. 4. Interstitial pulmonary edema and/or pneumonitis. 5. Cardiomegaly. Reviewed, dictated and finalized at location R.
--- OUTSIDE RECORDS SUMMARY | 2025-08-05 23:39 | XMS_ITS | Clinical Summary ---
Author Organization [facility] [employer] Address [address] [place] [address] Care Team Providers Care Humidifier Attendant Name Role Phone Unavailable Primary Care Provider Unavailabl e Source Comments [facility],non-owned Affiliates and Associated Physician Practices is amultiple site organization consisting of ambulatory clinics and hospital sitesin [place], [place], [place] and [place]. This disclosure is being madepursuant to the Care Everywhere program and may not contain all information available regarding this patient. 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 Gender Identity Not on file Sexual Orientation [...] age to complete this topic Insurance [place] AETNA MEDICARE ADV SELF PAY NO INSURANCE Member Subscriber Plan / Payer (Ef fective for All Dates) Name:Vandana Avila Member ID:Not on file Relation to Subscriber:Not on file Name:VANDANA AVILA Subscriber ID:Not on file (Home) Address: [address] [place] [address] Payer ID:Not on file Group ID:Not on file Type:Self Pay Address: [place], [place] AETNA MEDICARE [place] MED[place] MEDIC[place] MED[place]
--- OUTSIDE RECORDS SUMMARY | 2025-08-05 23:39 | XMS_ITS | Encounter Summary ---
Author Organization [facility] Address [address] [facility] [place] [address] Phone Care Team Providers Care Stonemason Name Role Phone Koki Vaughn MD Primary Care Provider Encounter Details Date Type Department Care Team (Late st Contact Info) Description 04/18/2021 Telephone [facility] Oncology Services [address] [place] [phone] Eli Soto [facility] Social History Tobacco Use Types Packs/Day Years [...] on filedocumented in this encounter Care Teams Stonemason Relationship Specialty Start Date End Date Koki Vaughn MD PCP - General Family Medicine 09/06/20 documented as of this encounter
--- OUTSIDE RECORDS SUMMARY | 2025-08-05 23:39 | XMS_ITS | Encounter Summary ---
Author Organization [facility] [employer] Address [address] [place] [address] Care Team Providers Care Mineralogy Professor Name Role Phone Koki Vaughn MD Primary Care Provider Reason for Visit * Reason Onset Date Comments PET Scan Appt. 01/13/2025 Spoke w/ patient s daughter to provide PET Scan Appt info Encounter Details Date Type Department Care Team (Late st Contact Info) Description 01/13/[address] [facility] Oncology critical access hospital Hematology [facility] [address] [place] [address] Bill Trejo MD [address] [place] [address] PET Scan Appt. (Spoke w/ patients [...] Care Team (Late st Contact Info) Description 10/03/2025 11:15 AM DESIGN DIRECTOR Office Visit [facility] Oncology critical access hospital [facility]ology [facility] [address] [place] [address] Bill Trejo MD [address] [place] [address] documented as of this encounter Visit Diagnoses Not on filedocumented in this encounter Care Teams Mineralogy Professor Relationship Specialty Start Date End Date Koki Vaughn MD [address] [place] [address] PCP - General Family Practice 02/05/24 documented as of this encounter
--- OUTSIDE RECORDS SUMMARY | 2025-08-05 23:39 | XMS_ITS | Clinical Summary ---
Author Organization [facility] Address [address] [place] [address] Care Team Providers Care Head Of Maintenance Name Role Phone Koki Vaughn MD Primary [...] Encounters Date Type Department Care Team Description 08/02/2025 External Device Data STL ABSTRACTION Provider, Abstract 06/28/2025 External Device Data STL ABSTRACTION Provider, Abstract 06/28/2025 External Device Data ST[facility] ABSTRACTION Provider, Abstract 06/28/2025 External Device Data STL ABSTRACTION Provider, Abstract 06/06/2025 9:15 AM CDT Office Visit [facility] Oncology and Hematology - [place] [address] [place] [address] Bill Trejo MD 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) 06/01/2025 Orders Only [facility] Oncology and Hematology [place] [address] [place] [address] Bill Trejo MD 05/26/2025 Orders Only [facility] Oncology and Hematology - [place] [address] [place] [phone] Bill Trejo MD 05/24/2025 External Device Data [...] Sign Reading Time Taken Comments Blood Pressure 131/77 06/06/2025 9:12 AM CDT Pulse 97 06/06/2025 9:12 AM CDT Temperature 36.5 C (97.7 F) 06/06/2025 9:12 AM CDT Respiratory Rate 16 06/06/2025 9:12 AM CDT Oxygen Saturation 97% 06/06/2025 9:12 AM CDT Inhaled Oxygen Concentration - - Weight 112 kg (247 lb) 06/06/2025 9:12 AM CDT Height 154.9 cm (5' 1) 02/12/2024 3:03 PM CDT Body Mass Index 46.67 02/12/2024 3:03 PM CDT Plan of Treatment Upcoming Encounters Date Type Department Care Team (Late st Contact Info) Description 10/03/2025 11:15 AM CLINICAL LABORATORY SERVICE TEACHER Office Visit [facility] Oncology and Hematology - [place] [address] [facility] [address] [place] [address] Bill Trejo MD [address] [place] [address] Health Maintenance Due Date Last [...] W CT SKL BSE MID THG Routine 05/31/2025 10:32 AM CDT COMPREHENSIVE METABOLIC PANEL Routine 05/25/2025 12:39 PM CDT from Last 3 Months Results * PET BONE IMG W CT SKB MDTH (05/31/2025 10:32 AM CDT) Anatomical Region Laterality Modality Positron Emissio n Tomography (PET) Bill Trejo MD PE ORDERABLES Final Result * COMPREHENSIVE METABOLIC PANEL (05/25/2025 12:39 PM CDT) Blood us Bill Trejo MD CHEMISTRY ORDERABLES Final Resu lt from Last 3 Months Insurance [place]ICAID [place] [facility] Care Teams Head Of Maintenance Relationship Specialty Start Date End Date Koki Vaughn MD [facility] [place] [address] PCP - General Family Practice 02/05/24
--- OUTSIDE RECORDS SUMMARY | 2025-08-05 23:39 | XMS_ITS | Encounter Summary ---
Author Organization [facility] Address [address] [facility] [place] [address] Phone Care Team Providers Care Rn Invasive Name Role Phone Koik Vaughn MD Primary Care Provider Encounter Details Date Type Department Care Team (Late st Contact Info) Description 12/07/2020 Telephone [facility] Oncology Services [address] [place] [phone] Aníbal Moser MD [address] [place] [address] Social History Tobacco Use Types Packs/Day Years [...] her preferred date of 12/27 at 1:30. UNITY EDUCATOR documented in this encounter Plan of Treatment Not on file documented as of this encounter Visit Diagnoses Not on filedocumented in this encounter Care Teams Rn Invasive Relationship Specialty Start Date End Date Koki Vaughn MD PCP - General Family Medicine 09/06/20 documented as of this encounter
--- OUTSIDE RECORDS SUMMARY | 2025-08-05 23:39 | XMS_ITS | Encounter Summary ---
Author Organization [facility] Address [address] [facility] [place] [address] Phone Care Team Providers Care Custom Feed Mill Operator Helper Name Role Phone Koki Vaughn MD Primary Care Provider Encounter Details Date Type Department Care Team (Late st Contact Info) Description 06/11/2022 Telephone [facility] Oncology Services [address] [place] [phone] Eli Soto [place] Social History Tobacco Use Types Packs/Day Years [...] for the Xolair. Faxed to Gregory Culp PENSION MANAGER office stating that we needed new order/auth in place before we could schedule her. She called back today andtold her that we were still waiting on the order/auth, would contact her when we had everything. documented in this encounter Plan of Treatment Not on file documented as of this encounter Visit Diagnoses Not on filedocumented in this encounter Care Teams Custom Feed Mill Operator Helper Relationship Specialty Start Date End Date Koki Vaughn MD PCP - General Family Medicine 09/06/20 documented as of this encounter
--- OUTSIDE RECORDS SUMMARY | 2025-08-05 23:39 | XMS_ITS | Encounter Summary ---
Author Organization [facility] Address [address] [place] [address] Care Team Providers Care Mechanical Estimator Name Role Phone Unavailable Primary Care Provider Unavailabl e Encounter Details Date Type Department Care Team (Late st Contact Info) Description 01/04/2025 Lab Requisition [facility] - Pathology Lab [address] [place] [address] Jalil España MD [address] [address] Illness, unspecified Social History Tobacco Use Types Packs/Day Years Used Date Smoking Tobacco: Never Assessed Comments Unknown Sex and Gender Information Value Date Recorded Sex Assigned at Not on file Legal 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 Female 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 Gender Identity Not on file Sexual Orientation Not on file documented as of this encounter Plan of Treatment Not on file documented as of this encounter Procedures Procedure Name Priority Date/Time Associated Diagnosis Comments PATHOLOGY TISSUE Routine 12/31/2024 12:0 7 PM CDT Illness, unspecified documented in this encounter Results * PATHOLOGY TISSUE (12/31/2024 12:07 PM CDT) Case Report Surgical Pathology Report Case: [id number] Authorizing Provider: Jalil España MD Collected: 12/31/2024 12:07 PM Ordering Location: [facility] - Received: 01/04/2025 02:53 PM Pathology Lab Pathologist: Paulina Love MD Specimen: Lymph Node Biopsy 01/06/2025 9:41 AM CDT [facility] Final Diagnosis Lymph node, left anterior lateral chest, needle core biopsy: - Atypical large B-cell infiltrate - See description 01/06/2025 9:41 AM [facility] at 0941 CDT Microscopic [...] classification of this process. 01/06/2025 9:41 AM [facility] Clinical History 59 year old woman with axillary adenopathy. 01/06/2025 9:41 AM [facility] Pathologist Location at [facility] 01/06/2025 9:41 AM [facility] Disclaimer The performance characteristics of all immunohistochemical and indirect immunofluorescence stains (if any) cited in this report were determined by the Histopathology Laboratory of [facility]. Some of these tests were developed [...] attending (teaching) pathologist. 01/06/2025 9:41 AM CDT [facility] Embedded Images 01/06/2025 9:41 AM CDT [facility] Pathology/Cytolo gy BIOPSY OF LYMPH NODE / Unknown 12/31/2024 12:07 PM CDT 01/04/2025 2:53 PM CDT us Jalil España MD LAB - PATHOLOGY/CYTOLOGY ORDERAB LES Final Result [facility] [address] [place] [address], [facility] [phone] documented in this encounter Visit Diagnoses Diagnosis Illness, unspecified documented in this encounter
--- OUTSIDE RECORDS SUMMARY | 2025-08-05 23:39 | XMS_ITS | Clinical Summary ---
Author Organization [facility] Address [address] [place] [address] Phone Care Team Providers Care Feeder Switchboard Operator Name Role Phone Koki Vaughn MD [...] Comments Blood Pressure 145/79 12/24/2023 2:55 PM CUTTING SUPERVISOR Pulse 97 12/24/2023 2:55 PM CUTTING SUPERVISOR Temperature 36.5 C (97.7 F) 12/24/2023 2:55 PM CUTTING SUPERVISOR Respiratory Rate 16 12/24/2023 2:55 PM CUTTING SUPERVISOR Oxygen Saturation 96% 12/24/2023 2:55 PM CUTTING SUPERVISOR Inhaled Oxygen Concentration - - Weight 110.9 kg (244 lb 8 oz) 12/24/2023 2:55 PM CUTTING SUPERVISOR Height 152.4 cm (5') 08/06/2018 1:55 PM CDT Body Mass Index 47.75 08/06/2018 1:55 PM CDT Plan of Treatment Health Maintenance Due Date Last Done Comments Hepatitis C Virus (HCV) Screening 1966 Mammogram 1966 Hepatitis B Immunization (1 of 3 - 19+ 3-dose series) 1985 Medicare Initial AWV [id number] 04/19/1992 Cologuard 2011 Colonoscopy 2011 Colorectal Cancer Screening 2011 Immunochemical Fecal Occult Blood 2011 Zoster Immunization (1 of 2) 2016 Pneumococcal Immunization (50+ years) (2 of 2 - PCV) 09/20/2016 09/20/2015 Influenza Immunization (#1) 06/20/202506/21, 08/10/2022, 08/06/2021, Additional history exists SARS-COV-2 Immunization ( season) 2025 07/22/2021, 06/30/2021 Respiratory Syncytial Virus (RSV) Immunization [...] MED[place] AET[place] Care Teams Feeder Switchboard Operator Relationship Specialty Start Date End Date Koki Vaughn MD PCP - General Family Medicine 09/06/20
--- NOTE | 2025-08-05 23:42 | ED.GENADULT ---
HPI - General Adult General Chief complaint: Shortness of Breath/Dyspnea Stated complaint: Weakness/SOB Time Seen by Provider: 08/05/25 23:42 Source: patient and family (Daughter) Limitations: clinical condition and other (Patient is a very poor historian) History of Present Illness HPI narrative: The patient is a 60-year-old woman with a history of asthma on MD eyes but no need for oxygen or nebulizers at baseline. Other comorbidities include a recent diagnosis this year of Hodgkin's lymphoma of the left axilla, treated with radiation therapy from April 06 until April 28, 2025, iron deficiency anemia, obesity BMI 4550, hypertension, intellectual disability, and a prior left hysterectomy and right eye surgery. There is a note from her pulmonary physician that she has COPD although the patient denies having COPD and so does the daughter. Patient has never smoked cigarettes. She did see our oncologist yesterday, 08/04/2025 and was in her usual state of health. A repeat oncology follow-up has been scheduled for 3 months from now. The patient woke up this morning and started having shortness of breath at rest and with minimal exertion at 11:00 a.m., associated with a fever as high as 100.1?, but no chills or diaphoresis. She does have a dry nonproductive cough but no rhinorrhea or nasal congestion or sore throat. There is wheezing throughout which is audible. Other family members have had upper respiratory infection in the last few days. On arrival, the patient's oxygen saturation on room air was 68% so she placed on a non-rebreather 100% FiO2 face mask, oxygen saturations improved to 96%. She is tachycardic and tachypneic and hypertensive. Related Data Home Medications ?Medication ?Instructions ?Recorded ?Confirmed ?Last Taken ?Type ferrous sulfate 325 mg (65 mg 325 mg PO DAILY ANEMIA 02/16/25 06/29/25 Unknown History iron) tablet Allergies Allergy/AdvReac Type Severity Reaction Status Date / Time No Known Allergies Allergy Verified 07/06/25 14:55 Review of Systems Review of Systems: All systems reviewed & are unremarkable except as noted in HPI and below Constitutional: Constitutional: Denies chills, Reports fatigue, Reports fever(s) and Reports weakness Eyes: Eyes: Reports no additional eye complaints and Denies photophobia ENT: Denies dysphagia, Denies nasal congestion and Denies sore throat Cardiovascular: Cardiovascular: Denies chest pain, Reports rapid heart rate and Denies radiating jaw, neck or arm pain Respiratory: Respiratory: Reports chest congestion, Reports cough, Reports dyspnea and Reports wheezing Gastrointestinal: Gastrointestinal: Denies abdominal pain, Denies diarrhea and Denies vomiting Genitourinary: Genitourinary: Denies hematuria and Denies nocturia Musculoskeletal: Musculoskeletal: Denies back pain, Denies myalgias and Denies joint swelling Integumentary/Breasts: Skin/Breast: Reports rash (at axilla, from XRT, chronic and stable) Neurologic: Reports confusion (at baseline; has intellectual disability.) and Denies headache(s) Psychiatric: Psychiatric: Reports anxiety, Denies homicidal ideation and Denies suicidal ideation Endocrine: Endocrine: Denies excessive sweating, Reports fatigue and Denies polyuria Hematologic/Lymphatic: Hematologic/Lymphatic: Denies easy bleeding Allergic/Immunologic: Allergic/Immunologic: Denies lip swelling PMFSH Past Medical History Medical History Hearing loss, bilateral Axillary lymphadenopathy (~11/2024) Nodular lymphocyte predominant Hodgkin lymphoma (~02/2025) Allergies Iron deficiency anemia Body mass index [BMI] 45.0-49.9, adult (01/07/19) History of intellectual disability Asthma Allergic rhinitis, unspecified Essential (primary) hypertension Surgical History Surgical History Status post excisional biopsy (~02/2025) 02/28/25 excisional biopsy left axillary lymphadenopathy Dr. Pearson H/O: hysterectomy (~2004) 1998 Hx of eye surgery (~2015) Right Family History Family History Sibling Asthma Father Asthma Hypertension Social History Social History Social History: Caffeine-occasionally Smoking status: Never smoker Second hand tobacco smoke exposure: No Alcohol intake: never Substance use: never Substance use type: does not use Do You Feel Safe in your Home?: Yes Lack of Transportation: No Lack of Food: Never True Current Housing: I Have Housing Concerned About Future Housing: No Difficulty Paying Gas/Electric Bills: No Difficulty Paying for Meds: No Currently Unemployed: No Education: High School Diploma/GED Difficulty w/ Childcare or Family Care: No Living arrangements: with family Occupation/Education: other Gender identity (if verbalized by the patient): Female Spiritual care concerns: No Agree to blood products: Yes Exam Const: General: ill appearing acutely Nutritional Appearance: obese Orientation/consciousness: patient oriented x3 HENMT: Ears: external ears normal Face/Nose/Sinus: Normal external nose present Throat: posterior oropharynx normal Eyes: Conjunctivae: conjunctivae normal Pupils: Equal, round and reactive pupils present EOM: EOMs intact bilaterally Neck: Neck: normal visual inspection Chest: Chest palpation & inspection: no tenderness Resp: Effort & Inspection: labored, retractions, tachypneic and uses accessory muscles Auscultation: no crackles, no rales, no rhonchi and wheezes expiratory wheezes, inspiratory wheezes and throughout Cardio: Rate: tachycardic Rhythm: regular rhythm GI: GI Palp: Yes Soft to palpation and No Tenderness to palpation present (GI) : General: Yes no CVA tenderness Skin: General skin exam: normal color Wounds: no wounds Neuro: General: patient oriented x3, moves all extremities and no focal motor deficits Extrem: General: normal to inspection and edema (Mild 1+ bilateral pedal edema.) bilateral Psych: Mental Status: mental status grossly normal Affect: Anxious affect present Course Course Emergency Course: 60-year-old woman with history of asthma, who presents with an asthma exacerbation associated with a low-grade fever of 100.1? with sick contacts at home with other family members being ill with an upper respiratory infection. The patient has audible wheezing throughout. She had hypoxia on arrival with 68% oxygen saturations on room air, and was placed on a non-rebreather face mask. She is tachycardic and hypertensive, treated with diltiazem 10 mg IV. Asthma exacerbation treated with Solu-Medrol 125 mg IV and DuoNebs as well as 2 g of magnesium. Workup in progress. The chest x-ray revealed increased pulmonary vascular congestion throughout both lung terry with occasional atelectasis. Given the chest x-ray findings and mild pedal edema on examination, the patient was given Lasix 80 mg IV x1. 00:55 am: Arterial blood gas analysis reveals no increase in her PaCO2 with a pCO2 of 44, normal pH at 7.44, but is hypoxic with a PO2 of 58 and a bicarb of 30 which is slightly elevated, oxygen saturations 89%, on 4 L. 04:00 am: The patient had limited IV access with only 1 IV through which she received the above medications. We are unable to obtain any blood work. Therefore, I spoke to the patient about placement of a central venous catheter and she was in agreement, after explaining the risks and benefits. Informed consent was obtained. The patient was placed in Trendelenburg and a triple-lumen right subclavian central venous catheter, 7 St Helenian, was inserted on the 1st attempt without difficulty. At the completion of that procedure, the patient had agonal respirations and became unresponsive. Her blood pressure decreased to 60 systolic and her heart rate decreased to 50 beats per minute. She received 0.5 mg of IV epinephrine bolus through the central line with resultant tachycardia, heart rate 150 sinus, and increase in the blood pressure to 110 systolic. She remained unresponsive with emesis which was suction. She did not aspirate. She underwent intubation using the glide scope on the 1st attempt. A 7.5 St Helenian endotracheal tube was placed, 20 cm at the lips. A nasogastric tube was placed. Chest x-ray revealed good placement of the central line, nasogastric tube, and endotracheal tube. A Salinas catheter was also placed. She does have uterine prolapse. Chest x-ray revealed mild increase in the pulmonary vascular markings but there is no manuel pneumonia. She was ordered to receive Zosyn and subsequently vancomycin. She did receive 3 doses total of epinephrine at 0.5 mg each until the norepinephrine infusion was started, initially at 10 micrograms/minute and then increased to 20 micrograms/minute and then increase to 30 micrograms/minute. Epinephrine was also started at 20 micrograms/minute. Vasopressin was added at 0.04 units/hour. A total of 3 L of IV fluids were ordered. For intubation, she received etomidate 20 mg, succinylcholine 100 mg, followed by rocuronium 50 mg. For the emesis, she received Zofran 4 mg IV. 04:06 am: The case was discussed with can cutter Dr. Aguirre at [facility] who accepted the patient for admission. Blood pressure now is 98/87 with a pulse of 140 on epinephrine at 20 micrograms/minute, and norepinephrine at 30 micrograms/minute. Vasopressin is being started currently. She will require an air ambulance once a bed is available. The case was initially discussed with [facility] who declined her, given her acuity. The case was also discussed with [facility] per family request. 04:14 am: The patient has a bed at [facility]. Air ambulance will be initiated. She remains on norepinephrine at 30 micrograms/minute, epinephrine 20 micrograms/minute, and vasopressin that was now infusing at 0.04 units/min. Current blood pressure is 93/76 with a mean of 84, and a pulse of 141, saturations 99%. The family is agreeable with the plan. Had an extensive discussion with them. 04:19 am: The blood pressure now is 105/87 after initiation of vasopressin. We will decrease the epinephrine to 10 micrograms/minute in order to decrease the heart rate which is currently 130-140. The patient was ordered to receive another dose of rocuronium (50 mg) after a dose of fentanyl (100 mcg) and versed (2 mg). The vent settings are: volume control (assist control), Vt 380 ml, RR 22, FiO2 100% (being weaned), Peep 5, I:E 1:2. 04:32 am: ESR was elevated at 40. The patient has received antibiotics, Zosyn and vancomycin. Repeat ABG pending note that she is intubated. Repeat lactic acid is pending and so is the repeat troponin. Amylase lipase also ordered. This is pending. 04:40 am: Repeat BP 53/40, after sedation and after decreasing epi to 10 mcg/min; despite adding vasopressin at 0.04 U/min. Vasopressin increased to 0.08 U/min; epinephrine increased to 20 mcg/min; epinephrine bolus 0.5 mg IV x 1 (total given as boluses are 2 mg in 4 doses). Awaiting air ambulance arrival. BP now 98/82 (MAP 88). HR 135. 05:00 am: Heart rate is now 118, blood pressure is now 96/69 on epinephrine at 20 micrograms/minute, norepinephrine 30 micrograms/minute, vasopressin 0.08 units/minute. Air ambulance is in the ER. Report given. Discussed the gravity of the situation with the family. Second troponin elevated now at 0.108; second lactate is now 4.6. Amylase and lipase are normal. Vital Signs Vital signs: Vital Signs Pulse Rate 128 H 08/05/25 23:45 Pulse Oximetry 95 08/05/25 23:45 Oxygen Delivery Non-Rebreather Mask 08/05/25 23:45 Oxygen Flow Rate 15 08/05/25 23:45 Temperature 37.4 C 08/06/25 01:04 Pulse Rate 120 H 08/06/25 05:38 Respiratory Rate 22 H 08/06/25 05:28 Blood Pressure 110/72 08/06/25 05:38 Pulse Oximetry 95 08/06/25 05:38 Oxygen Delivery Mechanical Ventilation 08/06/25 05:38 Oxygen Flow Rate 4 08/06/25 00:18 Fraction of Inspired Oxygen 60 08/06/25 04:45 Transfer Transfered to: Other ([facility]) Transportation: Air medical Transfer rationale: Critically ill patient. Accepting physician: Dr. Aguirre (can cutter) Procedures Catheter Insertion (Urinary) Urinary Catheter 1: Date of insertion: 08/06/25 Time of insertion: 03:08 Reason for placing: Yes Reason for placing indwelling catheter: ICU pt on diuretics Bladder scan/ultrasound used before catheterization: No Antiseptic solution prep: Povidone-Iodine Topical anesthesia used: No Catheter type/location: Urethral Size (St Helenian): 16 Catheter balloon size (mL): 10 Catheter balloon amount: 10 Results: successfully catheterized-immediate flow Procedure performed: without complications Complications: none Comment: performed by ED MD Central Line Placement Right SC: Central Line Date: 08/06/25 Central Line Time: 03:00 Time Out Performed: Yes Patient Placed on Monitor/Pulse Ox: Yes Max. Sterile Barrier Technique: Caps, large sterile sheet and hand hygiene Central Line Prep: 2% chlorhexidine scrub and sterile drapes applied Technique: seldinger Local Anesthetic: lidocaine 1% Amount of anesthesia used (mL): 20 Ultrasound Used for Placement: No Central Line Lumen Inserted: triple Post Procedure: sutured in place, good blood return, all ports aspirated, flushed, capped and sterile dressing applied Post Procedure X-Ray: tip of catheter in good position and no pneumothorax seen Patient Tolerated Procedure: no complications Complications: none Intubation Intubation #1: Intubation Date: 08/06/25 Intubation Time: 02:30 Time out performed: Yes sedative: Etomidate (20 mg) Mg Given: 2 paralytic: Succinylcholine (100 mg) Mg Given: 100 Laryngoscope: fiber optic video scope Assist Device Used: fiber optic device Tube Size (cm): 7.5 Method of Intubation: orotracheal Number of Attempts: 1 Tube Secured Depth (cm): 21 Tube Secured Location: lips Tube Placement Confirmation: visualized tube passing through cords, equal breath sounds bilaterally and confirmation by capnometry Patient Tolerated Procedure: well Intubation Complications: none Other Procedure Procedure 1: Other Procedure: Procedure: Nasogastric tube placement. Description: An 18 [place] Helenian nasogastric tube was advanced through the right naris into the stomach, with air insufflated into the stomach and auscultated, and good position noted of the nasogastric tube by chest x-ray. It was secured to the endotracheal tube. Procedure performed by ER physician. Medical Decision Making Vital Signs Vital Signs: Vital Signs Pulse Rate 128 H 08/05/25 23:45 Pulse Oximetry 95 08/05/25 23:45 Oxygen Delivery Non-Rebreather Mask 08/05/25 23:45 Oxygen Flow Rate 15 08/05/25 23:45 Temperature 37.4 C 08/06/25 01:04 Pulse Rate 120 H 08/06/25 05:38 Respiratory Rate 22 H 08/06/25 05:28 Blood Pressure 110/72 08/06/25 05:38 Pulse Oximetry 95 08/06/25 05:38 Oxygen Delivery Mechanical Ventilation 08/06/25 05:38 Oxygen Flow Rate 4 08/06/25 00:18 Fraction of Inspired Oxygen 60 08/06/25 04:45 Lab Data 08/06/25 02:11 08/06/25 02:11 Labs: Lab Results 08/06/25 08/06/25 08/06/25 Range/Units 00:09 01:04 02:11 WBC 11.0 H (4.8-10.8) K/mm3 RBC 3.98 L (4.20-5.40) M/mm3 Hgb 12.3 (12.0-15.0) g/dL Hct 38.9 (35.0-49.0) % MCV 97.7 (78.0-102.0) fL MCH 30.9 (27.0-31.0) pg MCHC 31.6 L (32-36) g/dL RDW 12.2 (11.6-14.4) % Plt Count 294 (150-420) K/mm3 MPV 11.1 (9.2-11.8) fl Immature Gran % (Auto) 0.4 H (0.0-0.0) % Neut % (Auto) 88.5 H (50.0-70.0) % Lymph % (Auto) 2.6 L (18.0-42.0) % [place] % (Auto) 3.9 (2.0-11.0) % Eos % (Auto) 4.2 (1.0-6.0) % Baso % (Auto) 0.4 (0.0-1.0) % Lymph # (Auto) 0.29 L (1.10-4.50) K/mm3 [place] # (Auto) 0.43 (0.10-0.90) K/mm3 Eos # (Auto) 0.46 (0.02-0.50) K/mm3 Baso # (Auto) 0.04 (0.00-0.10) K/mm3 Abs Immat Gran (auto) 0.04 H (0.00-0.00) K/mm3 Absolute Neuts (auto) 9.70 H (1.70-7.20) K/mm3 Absolute Nucleated RBC 0.00 (0.00-0.00) K/mm3 Nucleated RBC % 0.0 (0-0.0) % ESR 40 H (0-20) mm/hr PT 10.5 (9.50-12.1) Seconds INR 0.9 APTT 27.3 (23.9-30.70) Sec D-Dimer 1.05 H (0.19-0.50) mg/L Sodium 142 (137-145) mmol/L Potassium 3.6 (3.4-5.0) mmol/L Chloride 98 (98-107) mmol/L Carbon Dioxide 37 H (22-30) mmol/L Anion Gap 7 (4-12) mmol/L BUN 17 (7-17) mg/dL Creatinine 0.71 (0.7-1.0) mg/dL Estim Creat Clear Calc 86 ml/min Estimated GFR > 60 (59 - ) Glucose 164 H (65-110) mg/dL Calculated Osmolality 299 H (285-295) mOsm/kg Lactic Acid 0.8 (0.4-2.0) mmol/L Calcium 9.3 (8.4-10.2) mg/dL Magnesium 2.8 H (1.6-2.3) mg/dL Total Bilirubin 0.6 (0.2-1.3) mg/dL AST 39 H (14-36) U/L ALT 20 (6-35) U/L Alkaline Phosphatase 94 (38-126) U/L Troponin I 0.042 H* (0.000-0.034) ng/mL C-Reactive Protein 2.9 H (<1.0) mg/dL NT-Pro-B Natriuret Pep 294 H (19.9-100) pg/mL Total Protein 7.8 (6.3-8.2) g/dL Albumin 4.1 (3.5-5.1) g/dL Amylase (30-110) U/L Lipase (23-300) U/L Urine Color Light yellow (Yellow) Urine Appearance Clear (Clear) Urine pH 6.0 (5.0-8.0) Ur Specific [place] 1.015 (1.010-1.020) Urine Protein Negative (Negative) Urine Glucose (UA) Negative (Negative) Urine Ketones Negative (Negative) Ur Blood (Man) Negative (Negative) Urine Nitrate Negative (Negative) Urine Bilirubin Negative (Negative) Urine Urobilinogen 0.2 (0.2-1.0) mg/dL Leukocyte Esterase Rfl Negative (Negative) LORENZO/UL Influenza A (RT-PCR) Negative (Negative) Influenza B (RT-PCR) Negative (Negative) RSV (RT-PCR) Negative (Negative) SARS-CoV-2 RNA (RT-PCR) Negative (Negative) 08/06/25 Range/Units 04:04 WBC (4.8-10.8) K/mm3 RBC (4.20-5.40) M/mm3 Hgb (12.0-15.0) g/dL Hct (35.0-49.0) % MCV (78.0-102.0) fL MCH (27.0-31.0) pg MCHC (32-36) g/dL RDW (11.6-14.4) % Plt Count (150-420) K/mm3 MPV (9.2-11.8) fl Immature Gran % (Auto) (0.0-0.0) % Neut % (Auto) (50.0-70.0) % Lymph % (Auto) (18.0-42.0) % [place] % (Auto) (2.0-11.0) % Eos % (Auto) (1.0-6.0) % Baso % (Auto) (0.0-1.0) % Lymph # (Auto) (1.10-4.50) K/mm3 [place] # (Auto) (0.10-0.90) K/mm3 Eos # (Auto) (0.02-0.50) K/mm3 Baso # (Auto) (0.00-0.10) K/mm3 Abs Immat Gran (auto) (0.00-0.00) K/mm3 Absolute Neuts (auto) (1.70-7.20) K/mm3 Absolute Nucleated RBC (0.00-0.00) K/mm3 Nucleated RBC % (0-0.0) % ESR (0-20) mm/hr PT (9.50-12.1) Seconds INR APTT (23.9-30.70) Sec D-Dimer (0.19-0.50) mg/L Sodium (137-145) mmol/L Potassium (3.4-5.0) mmol/L Chloride (98-107) mmol/L Carbon Dioxide (22-30) mmol/L Anion Gap (4-12) mmol/L BUN (7-17) mg/dL Creatinine (0.7-1.0) mg/dL Estim Creat Clear Calc ml/min Estimated GFR (59 - ) Glucose (65-110) mg/dL Calculated Osmolality (285-295) mOsm/kg Lactic Acid 4.6 H (0.4-2.0) mmol/L Calcium (8.4-10.2) mg/dL Magnesium (1.6-2.3) mg/dL Total Bilirubin (0.2-1.3) mg/dL AST (14-36) U/L ALT (6-35) U/L Alkaline Phosphatase (38-126) U/L Troponin I 0.108 H* D (0.000-0.034) ng/mL C-Reactive Protein (<1.0) mg/dL NT-Pro-B Natriuret Pep (19.9-100) pg/mL Total Protein (6.3-8.2) g/dL Albumin (3.5-5.1) g/dL Amylase 66 (30-110) U/L Lipase 66 (23-300) U/L Urine Color (Yellow) Urine Appearance (Clear) Urine pH (5.0-8.0) Ur Specific [place] (1.010-1.020) Urine Protein (Negative) Urine Glucose (UA) (Negative) Urine Ketones (Negative) Ur Blood (Man) (Negative) Urine Nitrate (Negative) Urine Bilirubin (Negative) Urine Urobilinogen (0.2-1.0) mg/dL Leukocyte Esterase Rfl (Negative) LORENZO/UL Influenza A (RT-PCR) (Negative) Influenza B (RT-PCR) (Negative) RSV (RT-PCR) (Negative) SARS-CoV-2 RNA (RT-PCR) (Negative) ABG Data ABG results: 08/06/25 00:42 Puncture Site Right radial ABG pH 7.44 ABG pCO2 44.2 ABG pO2 58.0 L ABG HCO3 29.5 H ABG O2 Saturation 89.3 L ABG Base Excess 4.7 H Oxyhemoglobin 88.8 L O2 Delivery Device Nasal cannula O2 Liters/Min 4.0 Imaging Data My impression: Chest x-ray: Increased pulmonary vascular congestion, with scattered atelectasis. No cardiomegaly. Findings worse compared to previous chest x-ray from December 08, 2024. Interpretation by ER physician. ECG Data EKG #1: Attestation: I personally reviewed and interpreted this ECG as follows: ECG completion date: 08/06/25 ECG completion time: 00:21 Prior ECG tracings: available for review Ischemic changes: non-specific ST-T wave changes Interpretation: No acute ST elevation or depression. No ischemic changes. Sinus tachycardia at 128 beats per minute, with occasional premature atrial contractions, right axis deviation, nonspecific ST and T-wave changes. Compared with previous EKG from 12/08/2024, the sinus tachycardia rate has increased by 22 beats per minute, and the premature atrial contractions are new, otherwise no significant changes. EKG Interpretation: tachycardia, sinus rhythm, PACs, non-specific ST changes, normal QRS, normal QT and right axis EKG #2: Attestation: I personally reviewed and interpreted this ECG as follows: ECG completion date: 08/06/25 ECG completion time: 03:31 Prior ECG tracings: available for review Ischemic changes: non-specific ST-T wave changes Interpretation: No acute ST elevation, but there is diffuse ST depression likely rate related. Sinus tachycardia at 143 beats per minute, right axis deviation. Compared to the earlier EKG from today, the premature atrial contractions of resolved. EKG Interpretation: tachycardia, sinus rhythm, no ectopy, non-specific ST changes, ST depression, normal QRS and right axis Critical Care Time Critical Care Time Critical Care Time: Yes Total Critical Care Time: 130 (Including intubation, central line placement, management of multiple pressors, Salinas catheter and nasogastric tube placement, and discussions with intensivists.) Discharge Plan Discharge Clinical Impression: Acute hypoxemic respiratory failure, Septic shock, D-dimer, elevated, Non-STEMI (non-ST elevated myocardial infarction), Respiratory arrest Patient Disposition: Acute Care Hospital Condition: Guarded Prognosis Patient Language: Maori Prescriptions: No Action albuterol sulfate 90 mcg/actuation HFA aerosol inhaler 1 - 2 inh inhalation Q4-6H PRN (Reason: shortness of breath or wheezing) Qty: 6.7 2RF valsartan-hydrochlorothiazide 160-25 mg tablet 1 tablet PO DAILY Qty: 90 3RF ferrous sulfate 325 mg (65 mg iron) tablet 325 mg PO DAILY budesonide-formoterol [Symbicort] 160-4.5 mcg/actuation HFA aerosol inhaler 2 puff inhalation Q12H Qty: 10.2 11RF Rx Instructions: rinse and spit Follow-up/Referrals: Heber Vaughn MD [Primary Care Provider, [facility]] Time of Disposition: 05:01
[2025-08-05 23:45] VITALS: PULSE 128; O2SAT 95
[2025-08-05 23:50] VITALS: BP 189/94; PULSE 126; RESP 25; TEMP 37.8; O2SAT 98
--- NOTE | 2025-08-05 23:55 | ECG_ITS ---
Test Date: 2025-08-06 03:31:34 Measurements Intervals [employer] Rate: 143 P: 35 KS: 108 QRS: 78 QRSD: 79 T: 45 QT: 294 QTc: 454 Interpretive Statements SINUS TACHYCARDIA WITH SHORT [place] INTERVAL BORDERLINE ST ABNORMALITY- ANTEROLAT/INF LEADS BASELINE ARTIFACT- I, III, AVR, AVL, AVF ABNORMAL ECG Compared to ECG 08/06/2025 00:21:10 HEART RATE HAS INCREASED Electronically Signed On 08-08-2025 10:38:58 CDT by Pineda Nguyen D.O.
[2025-08-06] VITALS (89 sets, daily range): BP systolic 44–149; BP diastolic 29–109; PULSE 85–179; RESP 15–46; TEMP 37.4; O2SAT 76–100
[2025-08-06] MEDS: IPRATROPIUM 0.5 MG/ALBUTEROL SULFATE 2.5 MG (BASE) AMPUL.NEB 3 ML INHALATION
[2025-08-06] MEDS: ACETAMINOPHEN 500 MG TABLET 1000 MG PO (00:14)
[2025-08-06] MEDS: BENZONATATE 100 MG CAPSULE PO (00:15)
[2025-08-06] MEDS: FUROSEMIDE INJ 100 MG/10 ML VIAL 80 MG IV PUSH (00:29)
--- NOTE | 2025-08-06 00:40 | PC.NURSE ---
Attempting multiple times to attempt blood draws. Unable to obtain blood, ERP Dr Romero notified and informed of difficult time getting blood drawn. Pt has x1 IV access to Rt wrist and given IV push meds per order. Dr Romero wanting to set pt up for Central line access and insertion.
[2025-08-06 00:48] LABS: HCO3 ABG 29.5 mmol/L (23-29); Oxygen Saturation ABG 89.3 % (95-97); PCO2 ABG 44.2 mmHg (35-45); PO2 ABG 58.0 mmHg (80-90)
[2025-08-06 00:50] LABS: Site Drawn RIGHT RADIAL
[2025-08-06 00:51] LABS: Liters per Minute 4.0 LPM; Modified Allen's Test Pass
[2025-08-06] MEDS: MAGNESIUM SULF 2 GM/WATER 50ML 2 GM/50 ML BAG IVPB (01:01)
--- NOTE | 2025-08-06 01:30 | PC.NURSE ---
consent signed by pt for central line placement, procedure explained by Dr Romero.
[2025-08-06 01:31] LABS: Add Urine Microscopic? NO; Appearance Urine Clear (Clear); Glucose Urine UA Negative (Negative); Leukocyte Esterase Ur Negative LEU/UL (Negative); Nitrate Urine Negative (Negative); Specific Grav Ur 1.015 (1.010-1.020)
[2025-08-06 01:33] LABS: Influenza A QL RT-PCR Negative (Negative); Influenza B QL RT-PCR Negative (Negative); RSV RNA, RT-PCR Negative (Negative); SARS-CoV-2 RNA PCR Negative (Negative)
--- NOTE | 2025-08-06 02:00 | PC.NURSE ---
During central line prcedure and after end of placement pt started having more difficulty breathing and resp became agonal. Pts heart rate started to decrease to 50, pt bagged initially and suctioned because pt had large amt of emesis. Pt suctioned at this time, heart rate started to increase again to 112. Noted BP hypotensive.
[2025-08-06] MEDS: SODIUM CHLORIDE 0.9% IV 250 ML 999 ML (02:15)
[2025-08-06] MEDS: SODIUM CHLORIDE 0.9% IV 1,000 ML 999 ML IV CONT ×3 (02:15→05:10)
[2025-08-06] MEDS: ONDANSETRON INJ 4 MG/2 ML VIAL IV PUSH (02:19)
[2025-08-06] MEDS: EPINEPHrine INJ 1 MG/10 ML SYRINGE 0.5 MG XX ×4 (02:25→04:43)
[2025-08-06] MEDS: ETOMIDATE 20 MG/10 ML AMPUL IV PUSH (02:28)
[2025-08-06] MEDS: SUCCINYLCHOLINE CHLORIDE 20 MG/ML 10 ML VIAL 100 MG IV PUSH (02:29)
--- NOTE | 2025-08-06 02:30 | PC.NURSE ---
Pt prepared for intubation, pt is unresponsive, RR 24, monitor showing Stach at this time. RSI kit used, see notes and orders, Dr Romero successfully intubated pt w/ 7.5 ETT, continuing to bag pt until RT arrives.
[2025-08-06] MEDS: NOREPINEPHRINE 8 MG/D5W 250 ML 8 MG/250 ML BAG 37.5 MG IV CONT (02:33)
[2025-08-06 02:46] LABS: Alanine Aminotransferase 20 U/L (6-35); Albumin Level 4.1 g/dL (3.5-5.1); Alkaline Phosphatase 94 U/L (38-126); Anion Gap 7 mmol/L (4-12); Aspartate Amino Transferase 39 U/L (14-36); Bilirubin,Total 0.6 mg/dL (0.2-1.3); Blood Urea Nitrogen 17 mg/dL (7-17); CRP 2.9 mg/dL (<1.0); Calcium 9.3 mg/dL (8.4-10.2); Carbon Dioxide 37 mmol/L (22-30); Chloride 98 mmol/L (98-107); Estimated CRCL calculation 86 ml/min; Estimated Glomerular Filt Rate > 60; Glucose 164 mg/dL (65-110); Magnesium 2.8 mg/dL (1.6-2.3); Osmolality Calculated 299 mOsm/kg (285-295); Potassium 3.6 mmol/L (3.4-5.0); Sodium 142 mmol/L (137-145); Total Protein 7.8 g/dL (6.3-8.2)
[2025-08-06] MEDS: ROCURONIUM BROMIDE 50 MG/5 ML VIAL IV PUSH ×2 (02:46→05:08)
[2025-08-06 02:50] LABS: Hematocrit 38.9 % (35.0-49.0); Hemoglobin 12.3 g/dL (12.0-15.0); Immature Granulocyte Percent A 0.4 % (0.0-0.0); Lymphocytes Absolute Auto 0.29 K/mm3 (1.10-4.50); Mean Corpuscular HGB Conc 31.6 g/dL (32-36); Mean Corpuscular Hemoglobin 30.9 pg (27.0-31.0); Mean Corpuscular Volume 97.7 fL (78.0-102.0); Nucleated Red Blood Cells Absolute Auto 0.00 K/mm3 (0.00-0.00); Nucleated Red Blood Cells Perc 0.0 % (0-0.0); Platelet Count Result 294 K/mm3 (150-420); Red Blood Count 3.98 M/mm3 (4.20-5.40); White Blood Count 11.0 K/mm3 (4.8-10.8)
[2025-08-06 02:55] LABS: NT Pro B Type Natriuretic Pept 294 pg/mL (19.9-100)
[2025-08-06 02:57] LABS: Troponin I 0.042 ng/mL (0.000-0.034)
[2025-08-06] MEDS: EPINEPHRINE HCL IV CONT (02:59)
[2025-08-06] MEDS: SODIUM CHLORIDE 0.9% IV CONT (02:59)
[2025-08-06 03:00] LABS: INR 0.9; Partial Thromboplastin Time 27.3 Sec (23.9-30.70); Prothrombin Time 10.5 Seconds (9.50-12.1)
--- NOTE | 2025-08-06 03:00 | PC.NURSE ---
Pt stabalized, medications given as per order, pt preparing for transfer and calls being made. See VS pt being given pressors due to hypotension.
--- NOTE | 2025-08-06 03:17 | ECG_ITS ---
Test Date: 2025-08-06 00:21:10 Measurements Intervals [place] Rate: 128 P: 178 UT: 125 QRS: 93 QRSD: 92 T: 195 QT: 297 QTc: 435 Interpretive Statements SINUS TACHYCARDIA WITH OCCASIONAL SUPRAVENTRICULAR PREMATURE COMPLEXES ARM LEADS REVERSED POOR R WAVE PROGRESSION BORDERLINE ST-T WAVE ABNORMALITY- INFERIOR LEADS BASELINE ARTIFACT- I, II, III, AVR, AVL ,AVF ABNORMAL ECG Compared to ECG 12/08/2024 16:09:09 HEART RATE HAS INCREASED Electronically Signed On 08-06-2025 07:22:10 CDT by Pineda Nguyen D.O.
[2025-08-06] MEDS: PIPERACILLIN/TAZOBACTAM SOD 3.375 GM in SODIUM CHLORIDE 0.9% IV 50 ML 100 ML IVPB (03:27)
[2025-08-06] MEDS: ALBUTEROL SULFATE NEB 2.5 MG/3 ML INH 10 MG INHALATION (03:43)
[2025-08-06] MEDS: VASOPRESSIN INJ 100 UNITS in DEXTROSE 5% 95 ML IV CONT (04:03)
[2025-08-06] MEDS: fentaNYL CITRATE INJ (*CRX) 100 MCG/2 ML VIAL IV PUSH (04:22)
[2025-08-06] MEDS: MIDAZOLAM HCL (*CRX) 2 MG/2 ML VIAL IV PUSH (04:25)
[2025-08-06 04:27] LABS: Amylase 66 U/L (30-110); Lipase 66 U/L (23-300)
[2025-08-06 04:47] LABS: Troponin I 0.108 ng/mL (0.000-0.034)
[2025-08-06] MEDS: VANCOMYCIN 1,750 MG/NS 500 ML BAG 250 MG IVPB (04:57)
--- NOTE | 2025-08-06 05:00 | PC.NURSE ---
Air evac report given, pt remains stable on vent settings per RT.
--- NOTE | 2025-08-08 13:25 | PC.NURSE ---
Preliminary blood culture report; gram positive cocci, will wait for final culture and sensitivity.
--- NOTE | 2025-08-09 12:47 | PC.NURSE ---
PRELIMINARY BLOOD CULTURE REPORT; GRAM POSITIVE COCCI, WILL WAIT FOR FINAL CULTURE AND SENSATIVITY.
--- NOTE | 2025-08-09 12:50 | PC.NURSE ---
CULTURE REPORT FAXED TO [facility] [place]. [phone]
--- NOTE | 2025-08-10 13:18 | PC.NURSE ---
PRELIMINARY BLOOD CULTURE REPORT: ORGANISM: STAPHYLOCOCCUS. WAITING ON FINAL CULTURE REPORT
--- NOTE | 2025-08-11 19:07 | PC.NURSE ---
Day shift RN at this facility hands this RN blood culture report and reports patient was transferred to [facility] in [place], [place]. Patient is currently inpatient at [facility] facility. [facility] contacted via access line/transfer center. Spoke with Sid at the access line and states to fax blood culture results to [phone] and they will give the results to the patient care team. Blood culture results faxed as directed with confirmation of transmission received.
--- NOTE | 2025-08-12 12:32 | PC.NURSE ---
FINAL BLOOD CULTURE RESULTS FAXED TO [facility] TEAM AT [phone] FOLLOW UP FROM YESTERDAYS RESULTS NO CHANGES NOTED
== END 2025-08-06 05:45 | disposition short-term general hospital (02) ==
PROVIDERS: Emergency Provider Emergency Medicine; PCP Family Medicine
DX: J96.01 Acute respiratory failure with hypoxia (principal); A41.9 Sepsis, unspecified organism; R65.21 Severe sepsis with septic shock; R79.1 Abnormal coagulation profile; I21.4 Non-ST elevation (NSTEMI) myocardial infarction; I10 Essential (primary) hypertension; Z20.822 Contact with and (suspected) exposure to COVID-19
CPT/HCPCS: 30901; 36415; 36556; 36600; 51702; 71045; 80053; 81003; 82150; 82805; 83605; 83690; 83735; 83880; 84484; 85025; 85380; 85610; 85652; 85730; 86140; 87040; 87186; 87637; 93005; 94640; 96361; 96365; 96366; 96367; 96368; 96375; 96376; 99291; A9270; J0168; J0330; J1163; J1938; J2003; J2250; J2405; J2543; J2598; J2919; J3010; J3373; J3475; J7030; J7050